=== PATIENT | female | born 1940 | race Caucasian/White ===

== ENCOUNTER 2016-12-19 17:28 | Inpatient (IN) ==
[2016-12-19] MEDS ORDERED: ASPIRIN PO STA (18:14)
[2016-12-19 18:30] LABS: MANUAL DIFF NEEDED? NO
[2016-12-19 18:35] LABS: BASO% 0.1 % (0.0-0.8); EOS# 0.09 X1000 (0.0-0.7); EOS% 0.8 % (0.0-10.0); HEMATOCRIT 31.5 % (37.0-47.0); HEMOGLOBIN 10.1 g/dL (12.0-16.0); IMM GRAN# 0.04 X1000 (0.0-0.04); IMM GRAN% 0.3 % (0.0-0.5); LYMPH# 1.22 X1000 (1.2-3.4); LYMPH% 10.3 % (20.5-51.1); MCH 31.4 PG (27-31); MCHC 32.1 g/dL (33-37); MCV 97.8 FL (81-99); MONO# 0.78 X1000 (0.11-0.59); MONO% 6.6 % (1.7-9.3); MPV 11.6 FL (7.4-10.4); NEUT% 81.9 % (42.2-75.2); PLT 213 X1000 (130-400); RBC 3.22 XMIL (4.2-5.4)
[2016-12-19 18:56] LABS: CALCIUM 9.1 mg/dL (8.8-10.2); TOTAL BILIRUBIN 0.7 mg/dL (0.20-1.00)
[2016-12-19 18:57] LABS: ALBUMIN 3.4 g/dL (3.5-5.0); TOTAL PROTEIN 7.2 g/dL (6.3-8.3)
[2016-12-19] MEDS ORDERED: NS 1,000 ML IV ONE ×2 (18:58→21:10)
--- NOTE | 2016-12-19 19:50 | EKG Report ---
Test Performed on : 12/19/2016 7:26:17 PM Test Reason : CHEST PAIN Blood Pressure : / mmHG Vent. Rate : 079 BPM Atrial Rate : 079 BPM P-R Int : 152 ms QRS Dur : 154 ms QT Int : 442 ms P-R-T Axes : 047 076 049 degrees QTc Int : 506 ms Sinus rhythm. with marked sinus arrhythmia. with frequent premature ventricular complexes. Right bundle branch block Abnormal ECG When compared with ECG of 20-NOV-2016 23:59, premature ventricular complexes. are now present Unconfirmed Result
[2016-12-19] MEDS ORDERED: DOPAMINE 800 MG/D5W (PARKWAY ONLY!) 800 MG/250 ML IV.SOLN IV SCH (20:00)
[2016-12-19] MEDS ORDERED: NS 1,000 ML ONE (20:55)
[2016-12-19] MEDS ORDERED: FLORINEF PO ONE (23:22)
[2016-12-19] MEDS ORDERED: LEVAQUIN 500 MG/D5W 500 MG/100 ML IVPB IV SCH (23:22)
[2016-12-19] MEDS ORDERED: ZOFRAN IV PRN (23:22)
[2016-12-20] MEDS: AZACTAM 1 GM in NS 50 ML IV SCH ×2 (00:32→08:02)
[2016-12-20] MEDS: LOVENOX SUBQ SCH (00:40)
[2016-12-20] MEDS: NS 1,000 ML IV SCH ×4 (00:40→18:06)
--- NOTE | 2016-12-20 00:48 | HISTORY AND PHYSICAL ---
ATTENDING PHYSICIAN: Dr. Crawford. REASON FOR ADMISSION: A 1-week history of weakness, and a 2-day history of cough, chills, and greenish sputum. HISTORY OF PRESENT ILLNESS: Ms. Orta is a 75-year-old lady with a past medical history of COPD on 4 L nasal cannula, hypertension, dyslipidemia, hypothyroidism, fibromyalgia, irritable bowel syndrome, chronic gout, anxiety disorder, and a questionable history of CHF. The patient has a history of pulmonary fibrosis. The patient comes in today complaining of a 1-week history of progressive weakness for an inexplicable reason. She states that she denies any vomiting, diarrhea. No blood loss. She says 2 days ago things got worse, to the point that she became dyspneic at rest, and started coughing up greenish sputum with occasional bloody streaks. She denies any fever, but is having chills. She reports that she has been having right pleuritic chest pain, but no palpitations or any other additional anginal symptoms. REVIEW OF SYSTEMS: Notable for chronic constipation, with occasional intermittent diarrhea, which she attributes to her irritable bowel syndrome. No tremors. No polyuria or polydipsia. No focal neurological complaints. No arthralgias or rash. She reports that about 2-3 weeks ago, her primary care physician started her on some pain medication for musculoskeletal pains. Other than that, none of her medications have been altered, or increased or decreased. Twelve system review is negative, positive findings per HPI. ALLERGIES: Ultram, sulfa drugs, penicillin, codeine, Abilify, and fluticasone propionate. HOME MEDICATIONS: 1. DuoNeb q.4 p.r.n. 2. Albuterol 100 mg daily. 3. Aspirin 81 mg daily. 4. Symbicort 2 puffs daily. 5. Fioricet 1 capsule p.r.n. 6. Calcium carbonate 1250 mg p.r.n. 7. Vitamin D 1000 units daily. 8. Furosemide 20 mg p.r.n. 9. Seroquel 400 mg at bedtime. 10. Gabapentin 600 mg 3 times a day. 11. Fish oil 500 mg daily. 12. Furosemide 20 mg p.r.n. 13. Savella 50 mg t.i.d. 14. Topamax 75 mg daily. 15. Hydrocodone 7.5 mg q.6 p.r.n. 16. Imdur 30 mg daily. 17. Potassium chloride 10 mEq daily. 18. Losartan 100 mg daily. 19. Vitamin E 400 international units daily. SURGICAL HISTORY: Patient has had a thyroidectomy for goiter. She has had a hysterectomy, appendectomy, cataract surgery, and right BKA. FAMILY HISTORY: Notable for heart disease in several first-degree relatives, and diabetes also. SOCIAL HISTORY: Stopped smoking well over 10-15 years ago. No alcohol or illicit drug use. Lives with her daughter. LABORATORY WORK: Chest film shows increased vascular markings versus chronic scarring. Right lower lobe infiltrate noted. White count 11,000, hemoglobin and hematocrit 10 and 31, platelets 213,000, with 82% neutrophils. BUN 44, creatinine 1.3. Glucose 106. Alkaline phosphatase 148. CK 142. Troponin negative. ProBNP 1500. EKG showed sinus rhythm, with frequent PACs and right bundle branch block. PHYSICAL EXAMINATION: GENERAL: Pleasant, morbidly obese woman, who is not in acute distress. She is A and O x3. Normal mood and affect. VITAL SIGNS: Blood pressure when I saw her was 120/60 while on 20 mcg of dopamine. Heart rate 91, respirations 16, temperature 97.9. She is 96% on 4 L. HEENT: Head is normocephalic, atraumatic. Eyes: MARIBEL, EOMI. She is anicteric, but pale. ENT and oropharyngeal exam is grossly normal. No central cyanosis. NECK: Short and thick. No JVD or carotid bruit. No thyromegaly. CHEST: Bibasilar crepitations, with decreased air entry in both lung wright, with diffuse expiratory wheezes. CARDIOVASCULAR: First and second heart sounds heard, but were distant. No gallops. A 2/6 ejection systolic murmur heard. Rhythm is irregular. ABDOMEN: Protuberant, soft, with mild diffuse tenderness. No rebound or guarding. No mass or organomegaly appreciated. Bowel sounds are hypoactive. RECTAL: Deferred at this time. EXTREMITIES: Patient has a right BKA stump which is clean, with no breakdown or ulcerations. On her left leg, she has a lot of scaling on the left roy area, with several chronic healing ulcerations on the roy area. Her left foot is slightly cold to touch, and has poor capillary refill. She has diminished pulses on the left, dorsalis pedis pulses and posterior tibialis pulses of her left leg, and is diminished compared to her radial pulses in the upper extremity. No current peripheral cyanosis or edema. NEUROLOGICAL: No gross focal deficits appreciated. SKIN: Intact, other than the aforementioned findings in the left lower extremity. The patient has stage I bilateral gluteal pressure ulcers. MUSCULOSKELETAL: Exam is grossly normal otherwise. ASSESSMENT: 1. Probable sepsis secondary to right lower lobe pneumonia. 2. Anemia of chronic inflammation. 3. Chronic obstructive pulmonary disease. 4. Hypotension secondary to sepsis. 5. Dyslipidemia. 6. Hypothyroidism. 7. Fibromyalgia. 8. Chronic gout. 9. Irritable bowel syndrome. 10. Pulmonary fibrosis. PLAN: At this time, we will start patient on empirical antibiotics, i.e. Levaquin and Azactam to cover for the possibility of Pseudomonas due to the history of chronic obstructive pulmonary disease and pulmonary fibrosis, i.e. a significant structural lung disease. Continue with IV fluid resuscitation. No lactate levels were drawn, and I will add on to the initial blood that was done. The patient is currently on dopamine. We will try and wean her off, since her blood pressure has normalized. To maintain this, I will give her a one time dose of Florinef. Check cortisol level, since she has been exposed to rounds of prednisone in the past. Will start the patient on DVT prophylaxis with Lovenox. I would recommend discontinuation of Symbicort because of the steroid component. Patient states she has had multiple episodes of pneumonia. I think that this, i.e. Symbicort, may be playing a part in her recurrence of pneumonia. We will hold all blood pressure medications. I ordered an echocardiogram, only because of the hypotensive situation, but to rule out a coexisting cardiac condition which may be causing this. There is no record of an echocardiogram in our system. She has a murmur, and also the patient has occasional PVCs. With all of this in mind, it will be good to get at least a baseline assessment of mainly her LV function. Anemia workup has also been ordered, and will need to be followed. A TSH was also ordered, on account of the fact the patient has had a thyroidectomy. This also needs to be followed. TIME SPENT: Critical care time on this patient was estimated to be 42 minutes. cc: Partha Costa MD
[2016-12-20] MEDS: DUONEB (A & A) INH SCH ×4 (03:59→22:55)
[2016-12-20 06:24] LABS: MANUAL DIFF NEEDED? NO
[2016-12-20 06:33] LABS: BASO% 0.1 % (0.0-0.8); EOS% 1.2 % (0.0-10.0); HEMOGLOBIN 8.7 g/dL (12.0-16.0); LYMPH# 1.16 X1000 (1.2-3.4); LYMPH% 13.4 % (20.5-51.1); MCH 30.2 PG (27-31); MCHC 31.1 g/dL (33-37); MCV 97.2 FL (81-99); MONO# 0.72 X1000 (0.11-0.59); MONO% 8.3 % (1.7-9.3); PLT 169 X1000 (130-400); RBC 2.88 XMIL (4.2-5.4)
[2016-12-20 06:42] LABS: ALBUMIN 2.7 g/dL (3.5-5.0); CALCIUM 8.6 mg/dL (8.8-10.2); POTASSIUM 3.9 mmol/L (3.5-5.1); TOTAL BILIRUBIN 0.62 mg/dL (0.20-1.00)
--- NOTE | 2016-12-20 06:51 | EKG Report ---
Test Performed on : 12/20/2016 06:15:11 AM Test Reason : chest pain Blood Pressure : / mmHG Vent. Rate : 085 BPM Atrial Rate : 085 BPM P-R Int : 146 ms QRS Dur : 156 ms QT Int : 386 ms P-R-T Axes : 063 078 038 degrees QTc Int : 459 ms Sinus rhythm. with frequent premature ventricular complexes. Right bundle branch block Abnormal ECG When compared with ECG of 19-DEC-2016 19:26, No significant change was found Confirmed by Jordy Lynn MD ([id number]) on 12/20/2016 7:16:30 AM
--- NOTE | 2016-12-20 07:53 | Diag Imaging Result Document ---
PROCEDURE NAME: CHEST-2 VIEWS - 12/19/2016 TWO VIEWS OF THE CHEST: FINDINGS: There is increasing in the coarse opacification of the right lower lobe, compared to 11/20/2016. The heart and pulmonary vascularity are stable in appearance. IMPRESSION: Right lower lobe pneumonia.
--- NOTE | 2016-12-20 08:25 | Diag Imaging Result Document ---
PROCEDURE NAME: CT THORAX W/O CONTRAST - 12/19/2016 CT THORAX WITHOUT CONTRAST: No contrast administered per request of the referring provider. A dose-reduction protocol was used. COMPARISON: 06/10/2013. FINDINGS: There are irregular infiltrates in the right upper and right lower lobes. There are mild COPD changes. There is mild scarring at the left upper lobe. There is mild scarring or infiltrate at the inferior right middle lobe. There is no substantial pleural effusion or pneumothorax identified. There are right upper lobe calcified granuloma and calcified right hilar and mediastinal lymph nodes from old granulomatous disease. There are some mildly prominent noncalcified mediastinal lymph nodes which are mildly increased. It is possible that these may be reactive. IMPRESSION: 1. Irregular infiltrates at right upper right lower lobes, suspicious for pneumonia. Followup is recommended. 2. Mild COPD changes. There is mild scarring at the left upper lobe. 3. Mild mediastinal adenopathy, which may be reactive. A [facility] physician provided preliminary results at 12:53 a.m. on 12/20/2016. [facility]ERE[facility]ie
[2016-12-20] MEDS ORDERED: DOPAMINE 400 MG/D5W 400 MG/500 ML IV.SOLN IV SCH (08:35)
[2016-12-20 08:55] LABS: ALLEN TEST YES; BE -4.2 mmoll (-3.0-3.0); BLOOD TYPE ARTERIAL; DRAW SITE R RADIAL; METHB 1.3 % (0.0-1.5); O2(CT) 12.3 mL/dL (15.0-23.0); PCO2(98.6) 42 mmHg (35-45); PO2(98.6) 79 mmHg (60-100); SAMPLE BLOOD; SAO2 96.6 % (95.0-100.0); THB 9.2 g/dL (11.5-17.4); pH(98.6) 7.32 (7.35-7.45)
[2016-12-20] MEDS: NEURONTIN PO SCH ×3 (08:55→18:06)
[2016-12-20] MEDS: TOPAMAX PO SCH ×2 (08:55→20:49)
[2016-12-20] MEDS: ASPIRIN PO SCH (08:55)
[2016-12-20] MEDS: SAVELLA PO SCH ×3 (08:55→18:06)
[2016-12-20] MEDS: ZYLOPRIM PO SCH (08:55)
[2016-12-20] MEDS: FOLTX PO SCH (08:55)
[2016-12-20] MEDS: VITAMIN D PO SCH ×2 (08:55→20:49)
[2016-12-20 08:56] LABS: MODALITY CANNULA
[2016-12-20] MEDS ORDERED: VANCOMYCIN IV PER PHARMACY MISC SCH (10:45)
--- NOTE | 2016-12-20 12:16 | CONSULTATION ---
DATE OF CONSULTATION: 12/20/2016 CONCLUSION: Patient is admitted to the hospital with a right lung pneumonia. The patient by history has recurrent episodes of pneumonia. She told me in the last year she had 3-4 bouts of pneumonia. She also has sinusitis. Because of these illnesses, I think she could have an immunoglobulin deficiency. The patient has a penicillin allergy managed by dyspnea; however she has taken Keflex in the past and tolerated it well. RECOMMENDATIONS: I have discontinued aztreonam and Levaquin, and instead put the patient on a combination of cefepime and vancomycin. I have requested that the nurse be in the room with the patient during the first dose of cefepime. Some of the side effects of the antibiotics, including rash, diarrhea, renal toxicity and ototoxicity have been explained to the patient, who agrees with treatment. In addition, I have ordered immunoglobulin levels and blood and sputum cultures. DISCUSSION: The patient tells me that approximately 5 days ago she had increasing dyspnea, malaise, hypotension, no fever, but she did have chills. She is also coughing up a yellow sputum. Her laboratory studies show a CBC with a white count of 8670, hemoglobin 8.7, platelet count 169,000. Blood gases show a pH of 7.32, PO2 of 79, pCO2 of 42. Creatinine is 1.1. GFR is 48. Liver function studies are normal. The patient had a CT scan of the chest which showed right- sided pneumonia with mediastinal adenopathy thought to be reactive in nature. The patient approximately 7 days ago started having diarrhea; today she has not had any diarrhea. PAST MEDICAL HISTORY/REVIEW OF SYSTEMS: Eyes and ears: She has no difficulty hearing or seeing. Neck: No stiffness. Respiratory: See present illness. Cardiovascular: No chest pain or palpitations. GI: See above. She is not having any nausea or vomiting. Endocrine: Patient does not have diabetes or thyroid disease. Genitourinary: No dysuria or flank pain. Neurologic: No seizures. No motor or sensory loss. Bones/joints/muscles: No joint swelling or myalgias. Integument: No rash. 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 She has had a hysterectomy for a precancerous lesion in her uterus. PREVIOUS HOSPITALIZATIONS AND OPERATIONS: She has had labor and deliveries: A miscarriage and a hysterectomy. She has had removal of a goiter, a left mastoidectomy, an appendectomy, cataract surgery and a left carfk-egg-ladc amputation. MEDICAL DISEASES: Positive for hypertension, uterine fibroids and an illness which ended up requiring the patient having an amputation. INFECTIOUS DISEASE HISTORY: Positive for recurrent pneumonia and sinusitis. FAMILY HISTORY: Positive for diabetes mellitus, hypertension, myocardial infarction and cancer. SOCIAL HISTORY[place] . She lives with her daughter. She does not drink, smoke or abuse drugs. She has an allergy to penicillin manifested by dyspnea, but as mentioned above she tolerates Keflex well. The patient has dogs as pets. ALLERGIES: Abilify, tramadol, codeine, Advair Diskus, PARVIN inhibitors and penicillins. MEDICATION: Home medications include the followin. Vitamins. 2. Topamax. 3. Seroquel. 4. Potassium. 5. Savella. 6. Cozaar. 7. Levaquin. 8. Isordil. 9. Combivent. 10. Hydrocodone. 11. Gabapentin. 12. Furosemide. 13. Calcium. 14. Fiorinal. 15. Symbicort. 16. Aspirin. 17. Albuterol inhaler. PHYSICAL EXAMINATION: Vital Signs: Temperature is 98.2 degrees, pulse 84, respirations 20, blood pressure 99/85. General: This is an obese, elderly female. She is in no acute distress. Head, eyes, ears, nose, and throat: She can hear my spoken words and see near objects. Examination of her mouth showed no white patches. There were no caries that I could see. Neck: No meningismus. Thorax: No increased AP diameter of the chest. Lungs: Clear to auscultation. Cardiovascular: The patient did at times appear to have some premature beats which, on the monitor, were PVCs. Abdomen: Soft and nontender. Neurologic: Patient is alert. She can move her extremities. There is no tremor. Her sensation is intact to touch. Her memory as regarding her medical history is intact. Integument: I did not notice any rashes on the patient. cc: MD Rebecca Velasquez MD
[2016-12-20] MEDS: MAXIPIME 2 GM/NS 2 GM/100 ML IVPB IV SCH (13:05)
[2016-12-20] MEDS: VANCOMYCIN 2 GM in NS 500 ML IV SCH (13:13)
[2016-12-20] MEDS: SODIUM CHLORIDE 0.9% INJ SCH (13:14)
[2016-12-20] MEDS: PROTONIX IV SCH (13:14)
--- NOTE | 2016-12-20 14:10 | CONSULTATION ---
DATE OF CONSULTATION: 12/20/2016 REQUESTING PHYSICIAN: Dr. Crawford. REASON FOR CONSULTATION: Pneumonia. HISTORY OF PRESENT ILLNESS: Ms Orta is a 75-year-old white female with prior tobacco history, COPD, morbid obesity with a BMI of 49, gastroesophageal reflux disease who has been seen by this practitioner in the remote past. The patient did undergo a bronchoscopy which revealed bilious material in the airways consistent with reflux and aspiration. She failed to follow up after her last visit in 2012. The patient frequently will eat late at night. She routinely sleeps upright but recently traveled out of [facility] and slept on the couch and not in the recliner. The patient had developed increased cough, chills and greenish sputum production and was admitted through the emergency room last evening. PAST MEDICAL HISTORY: 1. COPD with chronic hypoxemic respiratory failure. 2. Morbid obesity with a BMI of 49. 3. Status post right clceq-eer-[id number] amputation due to chronic nonhealing ankle fracture. 4. Hypertension. 5. Hypothyroidism. 6. Dyslipidemia. 7. Fibromyalgia. 8. Irritable bowel syndrome. 9. Chronic anxiety disorder. 10. Gastroesophageal reflux with recurrent aspiration as per above. SOCIAL HISTORY: Prior tobacco use but none for several years. Denies significant alcohol use. FAMILY HISTORY: Notable for heart disease and diabetes mellitus. REVIEW OF SYSTEMS: As per HPI. PHYSICAL EXAMINATION: General: Reveals an obese, white female, with audible rhonchi but in no distress. Vital Signs: BP 99/81, heart rate 87, respiration rate 21, oxygen saturation 98% on 3 L. HEENT: Pupils are equal and reactive. Oropharynx is clear. Neck: Supple. Chest: Reveals rhonchi bilaterally with scattered crackles at the right base. Cardiac Exam: Regular rate. Normal S1, normal S2. Abdomen: Soft without hepatosplenomegaly. Extremities: Reveal prior [id number]-byd-[id number] amputation on the right. LABORATORIES: CT scan 12/19/[address] scan performed 1 month earlier on 11/20/2016. Patient has new infiltrates in the right upper, right middle and right lower lobe which were not present 1 month ago. IMPRESSION: A 75-year-old with chronic obstructive pulmonary disease, chronic hypoxemic respiratory failure, gastroesophageal reflux with noncompliance to recommended reflux precautions who presents with multilobar aspiration pneumonia. RECOMMENDATIONS: 1. Agree with antibiotics per infectious disease. 2. Routine bronchodilators. 3. Physical therapy as soon as possible for ambulation and mobilization. 4. Routine gastric acid suppression. 5. Encourage patient to follow reflux precautions to prevent recurrent aspiration events. cc: MD Rebecca Arriola MD
[2016-12-20] MEDS: NORCO-5 PO PRN (14:13)
--- NOTE | 2016-12-20 14:53 | ECHO REPORT ---
ORDER DATE: 12/19/2016 ECHOCARDIOGRAPHIC MEASUREMENTS: 1. Interventricular septum 1.0. 2. Left ventricular posterior wall 0.8. 3. Diastolic diameter 4.9. 4. Left atrium 5.0. 5. Aorta 2.6. Aortic valve leaflets are sclerosed, trileaflet. Pulmonic valve not well visualized. Mitral valve was normal. Tricuspid valve was normal. Normal left ventricular cavity size. Estimated ejection fraction of 55%-60%. Endocardium not well visualized in all views. There is mild mitral regurgitation. There is left atrial enlargement. Peak velocity across the aortic valve was 4 m/sec. Aortic valve area of 0.8 sq cm. Peak gradient of 64 mmHg. There is severe aortic stenosis. Peak velocity across the tricuspid valve was 3 m/sec. Pulmonary artery systolic pressure of 45 mm Hg. There is PVCs and bigeminy were noted. There is no aortic regurgitation. There is no pericardial effusion. Would recommend a transesophageal echocardiogram to better evaluate the aortic valve. cc: MD Partha Williamson MD Adnan A. Seljuki, MD
[2016-12-20] MEDS: TYLENOL PO PRN (15:09)
[2016-12-20] MEDS: SEROQUEL PO SCH (20:48)
[2016-12-21] MEDS: MAXIPIME 2 GM/NS 2 GM/100 ML IVPB IV SCH ×3 (00:19→22:44)
[2016-12-21] MEDS: DUONEB (A & A) INH SCH ×4 (03:14→21:25)
[2016-12-21] MEDS: NS 1,000 ML IV SCH ×2 (03:57→12:04)
[2016-12-21 07:54] LABS: MANUAL DIFF NEEDED? NO
[2016-12-21] MEDS: LOVENOX SUBQ SCH (08:06)
[2016-12-21 08:51] LABS: AGAP 10; BUN 28 mg/dL (8-22); CALCIUM 8.4 mg/dL (8.8-10.2); CHLORIDE 111 mmol/L (98-107); COSMO 286; POTASSIUM 4.3 mmol/L (3.5-5.1); SODIUM 141 mmol/L (136-145); TCO2 20 mmol/L (25-35)
[2016-12-21] MEDS: FOLTX PO SCH (09:14)
[2016-12-21] MEDS: CALMOSEPTINE OINTMENT TOP PRN ×2 (09:14→14:14)
[2016-12-21 09:15] LABS: BASO% 0.2 % (0.0-0.8); EOS# 0.21 X1000 (0.0-0.7); EOS% 2.2 % (0.0-10.0); HEMATOCRIT 28.3 % (37.0-47.0); HEMOGLOBIN 8.9 g/dL (12.0-16.0); IMM GRAN# 0.04 X1000 (0.0-0.04); IMM GRAN% 0.4 % (0.0-0.5); LYMPH% 13.5 % (20.5-51.1); MCH 30.6 PG (27-31); MCHC 31.4 g/dL (33-37); MCV 97.3 FL (81-99); MONO# 0.61 X1000 (0.11-0.59); MONO% 6.4 % (1.7-9.3); MPV 11.9 FL (7.4-10.4); NEUT% 77.3 % (42.2-75.2); PLT 189 X1000 (130-400); RBC 2.91 XMIL (4.2-5.4)
[2016-12-21] MEDS: ZYLOPRIM PO SCH (09:15)
[2016-12-21] MEDS: ASPIRIN PO SCH (09:15)
[2016-12-21] MEDS: SAVELLA PO SCH ×3 (09:15→17:50)
[2016-12-21] MEDS: TOPAMAX PO SCH ×2 (09:15→20:10)
[2016-12-21] MEDS: NEURONTIN PO SCH ×3 (09:16→17:50)
[2016-12-21] MEDS: VITAMIN D PO SCH ×2 (09:16→20:10)
[2016-12-21] MEDS: NORCO-5 PO PRN ×2 (12:07→18:08)
[2016-12-21] MEDS: SODIUM CHLORIDE 0.9% INJ SCH (13:08)
[2016-12-21] MEDS: PROTONIX IV SCH (13:10)
[2016-12-21] MEDS: SEROQUEL PO SCH (20:10)
[2016-12-22] MEDS: VANCOMYCIN 2 GM in NS 500 ML IV SCH (00:13)
[2016-12-22] MEDS: NORCO-5 PO PRN ×3 (00:13→10:55)
[2016-12-22] MEDS: DUONEB (A & A) INH SCH ×4 (03:25→19:53)
[2016-12-22] MEDS: LOVENOX SUBQ SCH (06:02)
[2016-12-22] MEDS: NS 1,000 ML IV SCH (06:04)
--- NOTE | 2016-12-22 08:03 | Diag Imaging Result Document ---
PROCEDURE NAME: CHEST-2 VIEWS - 12/22/2016 CHEST 2 VIEWS: Compared to 12/19/2016. FINDINGS: Infiltrate at the right mid lung appears more dense compared to the previous exam. There is possibly increased infiltrate at the posterior right base on the lateral view, although this could be exaggerated by differences in positioning of the lateral views. The left lung remains grossly clear. There is no pneumothorax seen. Heart size appears stable. IMPRESSION: Mild increase in infiltrate on the right.
[2016-12-22] MEDS: TOPAMAX PO SCH ×2 (10:55→22:27)
[2016-12-22] MEDS: VITAMIN D PO SCH ×2 (10:55→22:26)
[2016-12-22] MEDS: NEURONTIN PO SCH ×3 (10:55→22:27)
[2016-12-22] MEDS: FOLTX PO SCH (10:55)
[2016-12-22] MEDS: ZYLOPRIM PO SCH (10:55)
[2016-12-22] MEDS: SAVELLA PO SCH ×3 (10:55→22:27)
[2016-12-22] MEDS: ASPIRIN PO SCH (10:55)
[2016-12-22] MEDS: MAXIPIME 2 GM/NS 2 GM/100 ML IVPB IV SCH ×2 (10:56→22:29)
[2016-12-22] MEDS: PROTONIX IV SCH (13:55)
[2016-12-22] MEDS: SODIUM CHLORIDE 0.9% INJ SCH (13:55)
[2016-12-22] MEDS: CALMOSEPTINE OINTMENT TOP PRN (17:42)
[2016-12-22] MEDS: SEROQUEL PO SCH (22:27)
[2016-12-23] MEDS: DUONEB (A & A) INH SCH ×4 (03:25→22:46)
[2016-12-23 04:47] LABS: ALLEN TEST YES; BE -1.1 mmoll (-3.0-3.0); BLOOD TYPE ARTERIAL; DRAW SITE R RADIAL; METHB 1.6 % (0.0-1.5); O2(CT) 12.4 mL/dL (15.0-23.0); PCO2(98.6) 46 mmHg (35-45); PO2(98.6) 118 mmHg (60-100); SAMPLE BLOOD; SAO2 98.4 % (95.0-100.0); pH(98.6) 7.34 (7.35-7.45)
[2016-12-23 04:48] LABS: MODALITY CANNULA
[2016-12-23 05:50] LABS: MANUAL DIFF NEEDED? NO
[2016-12-23] MEDS: LOVENOX SUBQ SCH (05:54)
[2016-12-23 05:58] LABS: BASO% 0.4 % (0.0-0.8); EOS# 0.34 X1000 (0.0-0.7); EOS% 4.3 % (0.0-10.0); IMM GRAN# 0.15 X1000 (0.0-0.04); IMM GRAN% 1.9 % (0.0-0.5); LYMPH# 1.44 X1000 (1.2-3.4); LYMPH% 18.2 % (20.5-51.1); MCH 31.4 PG (27-31); MCHC 32.1 g/dL (33-37); MCV 97.6 FL (81-99); MONO# 0.66 X1000 (0.11-0.59); MONO% 8.3 % (1.7-9.3); MPV 11.3 FL (7.4-10.4); NEUT% 66.9 % (42.2-75.2); PLT 196 X1000 (130-400); RBC 2.87 XMIL (4.2-5.4)
[2016-12-23 06:09] LABS: AGAP 11; BUN 19 mg/dL (8-22); CALCIUM 8.9 mg/dL (8.8-10.2); CHLORIDE 107 mmol/L (98-107); COSMO 285; MAGNESIUM 1.8 mg/dL (1.5-2.7); POTASSIUM 4.2 mmol/L (3.5-5.1); SODIUM 142 mmol/L (136-145); TCO2 24 mmol/L (25-35)
[2016-12-23] MEDS: ZYLOPRIM PO SCH (09:06)
[2016-12-23] MEDS: TOPAMAX PO SCH ×2 (09:06→21:28)
[2016-12-23] MEDS: NEURONTIN PO SCH ×3 (09:06→17:51)
[2016-12-23] MEDS: SAVELLA PO SCH ×3 (09:07→17:51)
[2016-12-23] MEDS: VITAMIN D PO SCH ×2 (09:07→21:28)
[2016-12-23] MEDS: ASPIRIN PO SCH (09:07)
[2016-12-23] MEDS: FOLTX PO SCH (09:07)
[2016-12-23] MEDS: NORCO-5 PO PRN ×2 (10:19→19:01)
[2016-12-23] MEDS: MAXIPIME 2 GM/NS 2 GM/100 ML IVPB IV SCH ×2 (11:07→22:28)
[2016-12-23] MEDS: PROTONIX IV SCH (13:37)
[2016-12-23] MEDS: TYLENOL PO PRN ×2 (13:37→21:33)
[2016-12-23] MEDS: SODIUM CHLORIDE 0.9% INJ SCH (13:37)
[2016-12-23] MEDS: VANCOMYCIN 2 GM in NS 500 ML IV SCH (15:00)
--- NOTE | 2016-12-23 15:29 | PROGRESS NOTE ---
DATE: 12/23/2016 PRESENT ILLNESS: The patient is being treated for a right lung pneumonia. MEDICATIONS: This is the third day of treatment with the combination of IV cefepime and IV vancomycin. PHYSICAL EXAMINATION: Vital Signs: Temperature is 97.6 degrees, pulse 93, respirations 20, blood pressure 150/70. Generally: This is an obese, elderly female. She is in no acute distress. Lungs: Clear to auscultation. Cardiovascular: Regular heart rate. Abdomen: Soft and nontender. Extremities: Patient has bilateral leg edema. LAB AND X-RAY: The chest x-ray shows a mild increase in the right lung infiltrate. The patient's CBC shows a white count of 7920, hemoglobin 9, and platelet count 196,000. Blood gases show a pH of 7.34, a pO2 of 118, pCO2 of 46. Sputum is growing a normal winter. Blood cultures are sterile. Immunoglobulin levels A and G are normal. Chest x-ray shows a mild increase in the right lung infiltrate. ASSESSMENT AND PLAN: The patient has a right lung pneumonia. I think the slight increase in the infiltrate is due the fact that the chest x-ray lags behind the clinical course of the patient. Overall, I think she is doing well and she feels the same way. Therefore, I plan to continue with the current antibiotics, namely vancomycin and cefepime. COMORBIDITIES: Patient's comorbidities includes the following: She is obese, but other than that I do not find any other comorbidity. cc: MD Rebecca Velasquez MD
[2016-12-23] MEDS: SEROQUEL PO SCH (21:28)
[2016-12-24] MEDS: DUONEB (A & A) INH SCH ×4 (03:49→22:53)
[2016-12-24] MEDS: LOVENOX SUBQ SCH (05:23)
--- NOTE | 2016-12-24 08:34 | Diag Imaging Result Doc PS360 ---
CHEST-PORTABLE - 12/24/2016 INDICATION: Abnormal exam COMPARISON: 12/22/2016 FINDINGS: There is perhaps slight worsening in the multilobar infiltrate throughout the right lung. Stable significant cardiomegaly. Stable pulmonary vascular congestion. The left lung is grossly clear of infiltrate. IMPRESSION: Slight worsening multilobar infiltrate/pneumonia throughout the right lung. Cardiomegaly. Electronically signed by Tylor Hou 12/24/2016 8:31 AM
--- NOTE | 2016-12-24 09:11 | PROGRESS NOTE ---
DATE: 12/24/2016 DISCUSSION: The patient is receiving antibiotic treatment for a right lung pneumonia. MEDICATIONS: This is day 4 of treatment with the combination of IV cefepime and vancomycin. PHYSICAL EXAMINATION: Vital Signs: Temperature is 98.5 degrees, pulse 69, respirations 16, blood pressure 155/79. General: This is an ill-appearing, elderly female. She is in no acute distress. Lungs: Clear to auscultation. Cardiovascular: Regular heart rate. Abdomen: Soft and nontender. Neurologic: Patient is awake. She can move her extremities. LAB AND X-RAY: The chest x-ray shows a slight increase in the right lung infiltrates. Sputum grew normal florae. Blood cultures are negative. IgG and IgA are normal. Creatinine 0.9. GFR is greater than 60. Blood gases show a pH of 7.34, a PO2 of 118, pCO2 of 46. CBC shows a white count of 7920, hemoglobin 9, platelet count 196,000. ASSESSMENT AND PLAN: For right now, I would like to continue with the current antibiotics. The fact that the right lung is slightly worse, I do not think is worrisome. I think it just represents the radiologic lag from how the patient is actually doing clinically. My plan is to continue with both vancomycin and cefepime. The patient's comorbidities include obesity. I could not find any other comorbidity at this time. cc: MD Rebecca Velasquez MD
[2016-12-24] MEDS: ASPIRIN PO SCH (10:03)
[2016-12-24] MEDS: ZYLOPRIM PO SCH (10:03)
[2016-12-24] MEDS: NEURONTIN PO SCH ×3 (10:03→17:04)
[2016-12-24] MEDS: SAVELLA PO SCH ×3 (10:03→17:04)
[2016-12-24] MEDS: FOLTX PO SCH (10:03)
[2016-12-24] MEDS: TOPAMAX PO SCH ×2 (10:04→22:06)
[2016-12-24] MEDS: VITAMIN D PO SCH ×2 (10:04→22:07)
[2016-12-24] MEDS: MAXIPIME 2 GM/NS 2 GM/100 ML IVPB IV SCH ×2 (11:52→22:07)
[2016-12-24] MEDS: SODIUM CHLORIDE 0.9% INJ SCH (13:10)
[2016-12-24] MEDS: PROTONIX IV SCH (13:10)
[2016-12-24] MEDS: NORCO-5 PO PRN ×2 (13:13→22:06)
[2016-12-24] MEDS: TESSALON PO SCH (16:15)
--- NOTE | 2016-12-24 17:17 | PROGRESS NOTE ---
DATE: 12/24/2016 SUBJECTIVE: Today Ms. Orta refers to be doing a little better. Continues to have cough with yellowish dark expectoration. OBJECTIVE: Vital signs: Blood pressure is 155/76, pulse 69, respiration is 16 , temperature is 98.5 degrees. General: Ms. Orta is a 75-year-old female. She is in bed, in no distress. HEENT: Mucosa is pink and moist. Anicteric. Acyanotic. Neck: Supple. Chest: Air entry is bilaterally reduced. It is more remarkable on the right posterior lung field. There are diffuse crackles and expiratory rhonchi, more on the right posterior lung field. Cardiovascular: Regular rate and rhythm. Abdomen: Distended, nontender. Bowel sounds are present. 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 Left lower estremity with stasis dermatitis, right with BKA. ASSESSMENT/PLAN: 1. Sepsis secondary to pneumonia. 2. Right lower lobe pneumonia. 3. History of COPD. 4. Chronic gout. 5. Irritable bowel syndrome noted. So in general I think Ms. Orta continues to be doing fine. She is currently on vancomycin and cefepime for antibiotics. She is getting nebulizations and pulmonary toilette. She is being followed by Pulmonary Medicine and also Infectious Disease. We are going to continue with the current plan for now. cc: MD Rebecca Fitzgerald MD MTDD
[2016-12-24] MEDS: TYLENOL PO PRN (18:55)
[2016-12-24] MEDS: SEROQUEL PO SCH (22:06)
[2016-12-25] MEDS: VANCOMYCIN 2 GM in NS 500 ML IV SCH (01:45)
[2016-12-25] MEDS: DUONEB (A & A) INH SCH ×4 (03:21→20:12)
[2016-12-25 05:32] LABS: MANUAL DIFF NEEDED? NO
[2016-12-25 05:47] LABS: AGAP 8; BUN 20 mg/dL (8-22); CALCIUM 8.7 mg/dL (8.8-10.2); CHLORIDE 106 mmol/L (98-107); COSMO 285; SODIUM 142 mmol/L (136-145); TCO2 28 mmol/L (25-35)
[2016-12-25 05:50] LABS: BASO% 0.6 % (0.0-0.8); EOS% 5.8 % (0.0-10.0); HEMATOCRIT 27.9 % (37.0-47.0); HEMOGLOBIN 8.7 g/dL (12.0-16.0); IMM GRAN# 0.28 X1000 (0.0-0.04); IMM GRAN% 4.1 % (0.0-0.5); LYMPH# 1.66 X1000 (1.2-3.4); LYMPH% 24.2 % (20.5-51.1); MCH 30.1 PG (27-31); MCHC 31.2 g/dL (33-37); MCV 96.5 FL (81-99); MONO# 0.54 X1000 (0.11-0.59); MONO% 7.9 % (1.7-9.3); MPV 10.7 FL (7.4-10.4); NEUT% 57.4 % (42.2-75.2); PLT 247 X1000 (130-400); RBC 2.89 XMIL (4.2-5.4)
[2016-12-25] MEDS: LOVENOX SUBQ SCH (05:58)
--- NOTE | 2016-12-25 08:22 | PROGRESS NOTE ---
DATE: 12/25/2016 PRESENT ILLNESS: The patient is being treated for a right lung pneumonia. MEDICATIONS: This is day 5 of treatment with IV cefepime and vancomycin. PHYSICAL EXAMINATION: Vital Signs: Temperature is 97.7 degrees, pulse 77, respirations 18, blood pressure 136/71. Generally: This is a somewhat ill-appearing, elderly female. She is in no acute distress. She is obese. Lungs: Clear to auscultation. Cardiovascular: Regular heart rate. Abdomen: Soft and nontender. LAB AND X-RAY STUDIES: There is no new x-ray. The patient's sputum grew normal winter. Blood cultures are negative. Creatinine 0.9. GFR is greater than 60. CBC shows a white count of 6870, hemoglobin 8.7, and platelet count 247,000. ASSESSMENT AND PLAN: Patient has pneumonia. I plan to continue her current antibiotics, namely the vancomycin and cefepime. COMORBIDITIES: The only one I can find is obesity. cc: MD Rebecca Velasquez MD MTDD
[2016-12-25] MEDS: ASPIRIN PO SCH (08:39)
[2016-12-25] MEDS: FOLTX PO SCH (08:40)
[2016-12-25] MEDS: TOPAMAX PO SCH ×2 (08:40→21:20)
[2016-12-25] MEDS: VITAMIN D PO SCH ×2 (08:40→21:20)
[2016-12-25] MEDS: ZYLOPRIM PO SCH (08:40)
[2016-12-25] MEDS: SAVELLA PO SCH ×3 (08:40→17:01)
[2016-12-25] MEDS: NEURONTIN PO SCH ×3 (08:40→17:02)
[2016-12-25] MEDS: TESSALON PO SCH ×3 (08:40→17:02)
[2016-12-25] MEDS: MAXIPIME 2 GM/NS 2 GM/100 ML IVPB IV SCH ×2 (11:04→21:20)
[2016-12-25] MEDS: SODIUM CHLORIDE 0.9% INJ SCH (13:45)
[2016-12-25] MEDS: PROTONIX IV SCH (13:45)
[2016-12-25] MEDS ORDERED: MUCOMYST 20% INH ONE (15:45)
--- NOTE | 2016-12-25 16:08 | PROGRESS NOTE ---
DATE: 12/25/2016 SUBJECTIVE: Today, Ms. Orta refers to be doing relatively fine. Continues to have this hacking cough. Not bringing up anything. OBJECTIVE: Vital signs: Blood pressure is 154/65, pulse of 89, respirations 18 , temperature 98.1. General: Ms. Orta is a 76-year-old, female. She is in bed, not seemingly distressed. HEENT: Mucosa is pink and moist. Anicteric. Acyanotic. Neck: Supple. Chest: Good air entry bilateral. However, slightly reduced to the right posterior lung field. There is some coarse crepitations in the posterior right lung field and also rhonchi. Cardiovascular: Regular rate and rhythm. Abdomen: Soft, nontender. Extremities: No pedal edema. 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 LONG TERM CARE PHLEBOTOMIST: Patient is alert and oriented x4. LABORATORY DATA: WBC is 6.87, hemoglobin is 8.7, platelet count is 247. Chemistry is reviewed, completely normal. ASSESSMENT: 1. Sepsis on presentation, secondary to pneumonia. 2. Right lower lobe pneumonia. 3. History of chronic obstructive pulmonary disease. 4. Chronic gout. 5. Irritable bowel syndrome. PLAN: In general, I think Ms. Orta is relatively stable. We are going to continue with the current antibiotics including cefepime and vancomycin. The patient is being followed up as well by Pulmonary Medicine and Infectious Disease. I will get her a one time dose of acetylcysteine nebulization to see if we can loosen up some of the chest congestion. I think Ms. Orta is going to be needing antibiotics for awhile to adequately treat the lung infection. We will therefore go ahead and put in a consult for PICC line and hopefully be getting her ready for discharge with IV antibiotics. cc: MD Rebecca Fitzgerald MD [facility]
[2016-12-25] MEDS: NORCO-5 PO PRN (21:20)
[2016-12-25] MEDS: SEROQUEL PO SCH (21:20)
[2016-12-25] MEDS: FIORICET PO PRN (21:58)
[2016-12-26] MEDS: DUONEB (A & A) INH SCH ×4 (03:19→21:56)
[2016-12-26] MEDS: MAXIPIME 2 GM/NS 2 GM/100 ML IVPB IV SCH ×3 (05:04→21:16)
[2016-12-26 05:29] LABS: INR 1.07; PROTIME 11.3 Seconds (9.2-11.7)
[2016-12-26] MEDS: LOVENOX SUBQ SCH (06:41)
--- NOTE | 2016-12-26 08:23 | Diag Imaging Result Doc PS360 ---
EXAM: CHEST-2 VIEWS HISTORY: abnormal exam COMPARISON: 12/24/2016 FINDINGS: There is mild cardiomegaly. There is been interval decrease in vascular congestion. There is infiltrate on the right which appears grossly stable. There is no substantial pleural effusion or pneumothorax identified. IMPRESSION: Decrease in vascular congestion. Stable infiltrate on the right. Pneumonia cannot be excluded. Electronically signed by Eliud Farmer 12/26/2016 8:20 AM
[2016-12-26] MEDS: SAVELLA PO SCH ×3 (08:45→16:24)
[2016-12-26] MEDS: FOLTX PO SCH (08:45)
[2016-12-26] MEDS: ASPIRIN PO SCH (08:45)
[2016-12-26] MEDS: TOPAMAX PO SCH ×2 (08:45→21:16)
[2016-12-26] MEDS: NEURONTIN PO SCH ×3 (08:45→16:24)
[2016-12-26] MEDS: ZYLOPRIM PO SCH (08:46)
[2016-12-26] MEDS: TESSALON PO SCH ×3 (08:46→16:24)
[2016-12-26] MEDS: VITAMIN D PO SCH ×2 (08:46→21:16)
[2016-12-26] MEDS ORDERED: NS 250 ML ONE (11:00)
[2016-12-26] MEDS: PROTONIX IV SCH (12:38)
[2016-12-26] MEDS: SODIUM CHLORIDE 0.9% INJ SCH (12:38)
--- NOTE | 2016-12-26 13:54 | PROGRESS NOTE ---
DATE: 12/26/2016 PRESENT ILLNESS: The patient has a right lung pneumonia. MEDICATIONS: The patient is being treated with vancomycin and cefepime. This is the 6th day of treatment with those antibiotics. PHYSICAL EXAMINATION: Vital Signs: Temperature is 97.8 degrees, pulse 91, respirations 12, blood pressure 137/80. General: This is an obese, elderly female. She is in no acute distress. Lungs: Clear to auscultation. Cardiovascular: Regular heart rate. Abdomen: Soft and nontender. Extremities/Integumentary: Patient has a has a PICC in the right arm. The site is not erythematous or swollen. LABORATORY AND X-RAYS: Creatinine 0.9. GFR is greater than 60. The patient's CBC shows a white count of 6870, hemoglobin 8.7, and platelet count 247,000. Chest x-ray shows stable right lung infiltrate with decreased vascular congestion. ASSESSMENT AND PLAN: I plan to continue the patient's antibiotics for her pneumonia. COMORBIDITY: The only comorbidity I can detect is obesity. cc: MD Rebecca Velasquez MD
[2016-12-26] MEDS: VANCOMYCIN 2 GM in NS 500 ML IV SCH (14:18)
[2016-12-26] MEDS: TYLENOL PO PRN (15:32)
--- NOTE | 2016-12-26 17:01 | PROGRESS NOTE ---
DATE: 12/26/2016 SUBJECTIVE: Today, Ms. Orta is referred to be doing a little better. Continues to have cough, but no fever. OBJECTIVE: Vital signs: Blood pressure is 149/88, pulse of 90, respirations 16, temperature is 97.8. General Exam: Ms. Orta is an 86-year-old, female. She is in bed, not seemingly distress. HEENT: Mucosa is pink and moist. Anicteric. Acyanotic. Neck: Supple. Chest: Air entry is bilaterally reduced. There is bilateral diffuse coarse crepitations in the posterior lung wright more on the right than the left. Cardiovascular: Regular rate and rhythm. Abdomen: Soft. Extremities: There is stasis dermatitis on the left and the right has a BKA. FORENSIC ECONOMIST: Patient is alert and oriented. LABORATORY DATA: None for today. A chest x-ray which was repeated this morning shows decrease in vascular congestion. Stable infiltrates in the right. Pneumonia cannot be excluded. ASSESSMENT: 1. Sepsis on presentation secondary to pneumonia. 2. Right lower lobe pneumonia. 3. History of chronic obstructive pulmonary disease. 4. Chronic gout. 5. Irritable bowel. PLAN: So, I think at this point, Ms. Orta is doing a whole lot better. She is also being followed up by Pulmonary medicine and Dr. Galarza who plans to continue with the current antibiotics including vancomycin and cefepime. Ms. Orta now has a PICC line. We will now be planning her possible discharge home on home health and arrange for her home antibiotics. We are going to discuss this with Dr. Galarza and start planning for her discharge. cc: MD Rebecca Fitzgerald MD
[2016-12-26] MEDS ORDERED: LASIX IV ONE (18:06)
[2016-12-26] MEDS: NORCO-5 PO PRN (21:15)
[2016-12-26] MEDS: SEROQUEL PO SCH (21:16)
[2016-12-26 23:35] LABS: CALCIUM 8.9 mg/dL (8.8-10.2); MAGNESIUM 1.9 mg/dL (1.5-2.7); POTASSIUM 3.7 mmol/L (3.5-5.1)
[2016-12-27] MEDS: DUONEB (A & A) INH SCH ×4 (03:11→22:40)
--- NOTE | 2016-12-27 05:14 | EKG Report ---
Test Performed on : 12/26/2016 10:40:08 PM Test Reason : Multiple PVC's, Chest Pain Blood Pressure : / mmHG Vent. Rate : 088 BPM Atrial Rate : 088 BPM P-R Int : 128 ms QRS Dur : 142 ms QT Int : 424 ms P-R-T Axes : 050 069 051 degrees QTc Int : 513 ms Sinus rhythm. with frequent premature ventricular complexes. Right bundle branch block Abnormal ECG When compared with ECG of 20-DEC-2016 06:15, QT has lengthened Confirmed by Jordy Lynn MD ([id number]) on 12/27/2016 3:30:00 PM
[2016-12-27 05:21] LABS: HEMOGLOBIN 8.9 g/dL (12.0-16.0); MCH 30.4 PG (27-31); MCHC 30.7 g/dL (33-37); RBC 2.93 XMIL (4.2-5.4)
[2016-12-27 05:23] LABS: ALBUMIN 2.7 g/dL (3.5-5.0); CALCIUM 8.6 mg/dL (8.8-10.2); MAGNESIUM 2.1 mg/dL (1.5-2.7); POTASSIUM 3.8 mmol/L (3.5-5.1); TOTAL BILIRUBIN 0.17 mg/dL (0.20-1.00); TOTAL PROTEIN 6.2 g/dL (6.3-8.3)
[2016-12-27] MEDS ORDERED: LASIX IV ONE (06:00)
[2016-12-27] MEDS: MAXIPIME 2 GM/NS 2 GM/100 ML IVPB IV SCH ×3 (06:00→22:13)
[2016-12-27] MEDS: LOVENOX SUBQ SCH (06:51)
--- NOTE | 2016-12-27 07:22 | Diag Imaging Result Doc PS360 ---
CHEST-PORTABLE - 12/27/2016 INDICATION: abnormal exam TECHNIQUE: COMPARISON: 12/26/2016 FINDINGS: There is a new right PICC line with the catheter tip in the mid SVC. There is slight improvement in the multifocal infiltrates in the right lung. Stable mild cardiomegaly. No new infiltrates. IMPRESSION: Slight improvement from prior. Electronically signed by Tylor Hou 12/27/2016 7:20 AM
[2016-12-27] MEDS: NORCO-5 PO PRN ×2 (10:34→18:57)
[2016-12-27] MEDS: TESSALON PO SCH ×3 (10:35→18:55)
[2016-12-27] MEDS: VITAMIN D PO SCH ×2 (10:35→22:13)
[2016-12-27] MEDS: SAVELLA PO SCH ×3 (10:35→18:54)
[2016-12-27] MEDS: TOPAMAX PO SCH ×2 (10:35→22:13)
[2016-12-27] MEDS: ASPIRIN PO SCH (10:35)
[2016-12-27] MEDS: ZYLOPRIM PO SCH (10:35)
[2016-12-27] MEDS: FOLTX PO SCH (10:35)
[2016-12-27] MEDS: NEURONTIN PO SCH ×3 (10:36→18:55)
[2016-12-27] MEDS: CALMOSEPTINE OINTMENT TOP PRN ×2 (10:58→13:53)
--- NOTE | 2016-12-27 11:14 | PROGRESS NOTE ---
DATE: 12/27/2016 PRESENT ILLNESS: The patient has a right lung pneumonia. MEDICATIONS: This is the 7th day of treatment with a combination of vancomycin and cefepime. PHYSICAL EXAMINATION: Vital Signs: Temperature is 98.2 degrees, pulse 82, respirations 18, blood pressure 121/67. General: This is an obese elderly female. She is in no acute distress. Lungs: Clear to auscultation. Cardiovascular: Heart rate is irregular. Abdomen: Soft and nontender. Extremities: The patient has a PICC in the right arm. The site is not erythematous or tender. LAB AND X-RAYS: Chest x-ray shows improvement in the right lower lobe infiltrate. CBC shows a white count of 8350, hemoglobin 8.9, and platelet count 268,000. Creatinine is 1. GFR is 54. ASSESSMENT AND PLAN: Patient has pneumonia. I plan to continue her current antibiotics. This is day 7 of treatment with the antibiotics. I suspect I will need to treat her for a total of 14 days. COMORBIDITY: Is obesity. cc: MD Rebecca Velasquez MD
--- NOTE | 2016-12-27 13:21 | PROGRESS NOTE ---
DATE: 12/27/2016 Ms. Orta states she is breathing a little more comfortably. She felt a little better. She says she is still coughing a little bit more, a little looser. OBJECTIVE: Vital Signs: Afebrile. Temp 97.9 degrees. Pulse 52, respirations 20, blood pressure 149/69. HEENT: Pupils are equal, round. Lungs: Lungs are clear in all lung wright. Cardiovascular: Regular rhythm and rate without murmur or S3. Abdomen: Soft. Skin: Warm and dry. URINE OUTPUT: 3800 mL. LAB: White count 8350, hematocrit was 29, platelet count 268,000, sodium 141, potassium 3.8, chloride 99, bicarb 30, BUN 26, creatinine 1.0. ASSESSMENT AND PLAN: Right lung pneumonia. Combination of vancomycin and cefepime. Getting better, clinically doing better. This is the 7th day of antibiotic untreated total 14 days. Chest x-ray from 12/27/2016 slight improvement from prior. I reviewed all the orders. I do not see any changes at this point. The patient is on vancomycin 2 g q.36 hours, Topamax 25 mg p.o. b.i.d., Seroquel 200 mg at bedtime, Protonix 40 mg IV q.24 hours. Savella 15 mg t.i.d., cefepime 2 g IV q.12 hours, hydrocodone 1 q.6h, Neurontin 600 mg t.i.d., vitamin D3 a 1000 units a day. Tessalon 100 mg t.i.d., butalbital APAP and caffeine 1 q.4 hours p.r.n., aspirin 81 mg a day. Zyloprim 100 mg daily. cc: MD Rebecca Christensen MD
[2016-12-27] MEDS: PROTONIX IV SCH (13:50)
[2016-12-27] MEDS: SODIUM CHLORIDE 0.9% INJ SCH (13:50)
[2016-12-27] MEDS: SEROQUEL PO SCH (22:12)
[2016-12-28] MEDS: VANCOMYCIN 2 GM in NS 500 ML IV SCH (01:48)
[2016-12-28] MEDS: DUONEB (A & A) INH SCH ×4 (03:20→22:51)
[2016-12-28] MEDS: LOVENOX SUBQ SCH (06:22)
[2016-12-28] MEDS: SAVELLA PO SCH ×3 (10:00→17:54)
[2016-12-28] MEDS: TOPAMAX PO SCH ×2 (10:00→23:37)
[2016-12-28] MEDS: NEURONTIN PO SCH ×3 (10:00→17:53)
[2016-12-28] MEDS: FOLTX PO SCH (10:00)
[2016-12-28] MEDS: VITAMIN D PO SCH ×2 (10:00→23:36)
[2016-12-28] MEDS: ZYLOPRIM PO SCH (10:00)
[2016-12-28] MEDS: ASPIRIN PO SCH (10:01)
[2016-12-28] MEDS: TESSALON PO SCH ×3 (10:01→17:54)
[2016-12-28] MEDS: CALMOSEPTINE OINTMENT TOP PRN (10:02)
[2016-12-28] MEDS: NORCO-5 PO PRN ×2 (10:04→17:54)
[2016-12-28] MEDS: MAXIPIME 2 GM/NS 2 GM/100 ML IVPB IV SCH ×2 (12:53→23:35)
[2016-12-28] MEDS: PROTONIX IV SCH (13:04)
[2016-12-28] MEDS: SODIUM CHLORIDE 0.9% INJ SCH (13:04)
[2016-12-28] MEDS: TYLENOL PO PRN (16:03)
[2016-12-28] MEDS: SEROQUEL PO SCH (23:37)
[2016-12-29] MEDS: DUONEB (A & A) INH SCH ×4 (03:45→22:23)
[2016-12-29] MEDS: LOVENOX SUBQ SCH (06:14)
[2016-12-29] MEDS: NORCO-5 PO PRN ×2 (09:50→17:20)
[2016-12-29] MEDS: NEURONTIN PO SCH ×3 (09:51→17:11)
[2016-12-29] MEDS: FOLTX PO SCH (09:51)
[2016-12-29] MEDS: TESSALON PO SCH ×3 (09:51→17:11)
[2016-12-29] MEDS: ASPIRIN PO SCH (09:51)
[2016-12-29] MEDS: ZYLOPRIM PO SCH (09:52)
[2016-12-29] MEDS: TOPAMAX PO SCH ×2 (09:52→22:16)
[2016-12-29] MEDS: VITAMIN D PO SCH ×2 (09:52→22:16)
[2016-12-29] MEDS: SAVELLA PO SCH ×3 (09:52→17:11)
[2016-12-29] MEDS: CALMOSEPTINE OINTMENT TOP PRN (09:53)
[2016-12-29] MEDS: MAXIPIME 2 GM/NS 2 GM/100 ML IVPB IV SCH ×2 (11:06→22:16)
[2016-12-29] MEDS: VANCOMYCIN 2 GM in NS 500 ML IV SCH (14:03)
[2016-12-29] MEDS: PROTONIX IV SCH (14:06)
[2016-12-29] MEDS: SODIUM CHLORIDE 0.9% INJ SCH (14:06)
[2016-12-29] MEDS: FIORICET PO PRN (14:27)
[2016-12-29] MEDS: SEROQUEL PO SCH (22:16)
[2016-12-30] MEDS: DUONEB (A & A) INH SCH ×2 (03:32→09:34)
[2016-12-30] MEDS: LOVENOX SUBQ SCH (06:44)
[2016-12-30 08:14] LABS: MANUAL DIFF NEEDED? NO
[2016-12-30 08:17] LABS: BASO% 0.7 % (0.0-0.8); EOS# 0.56 X1000 (0.0-0.7); EOS% 6.2 % (0.0-10.0); HEMATOCRIT 32.3 % (37.0-47.0); HEMOGLOBIN 10.1 g/dL (12.0-16.0); IMM GRAN# 0.09 X1000 (0.0-0.04); LYMPH# 1.38 X1000 (1.2-3.4); LYMPH% 15.2 % (20.5-51.1); MCHC 31.3 g/dL (33-37); MCV 99.1 FL (81-99); MONO# 0.58 X1000 (0.11-0.59); MONO% 6.4 % (1.7-9.3); MPV 11.2 FL (7.4-10.4); NEUT% 70.5 % (42.2-75.2); PLT 321 X1000 (130-400); RBC 3.26 XMIL (4.2-5.4)
[2016-12-30 08:34] LABS: AGAP 9; BUN 24 mg/dL (8-22); CALCIUM 9.2 mg/dL (8.8-10.2); CHLORIDE 101 mmol/L (98-107); COSMO 285; POTASSIUM 4.4 mmol/L (3.5-5.1); SODIUM 141 mmol/L (136-145); TCO2 31 mmol/L (25-35)
--- NOTE | 2016-12-30 10:24 | Diag Imaging Result Doc PS360 ---
EXAM: CHEST-2 VIEWS HISTORY: evaluate PNA TECHNIQUE: COMPARISON: 12/27/2016. FINDINGS: No change in the right-sided PICC line. There are infiltrates in the right lung. The heart remains mildly prominent. Mild central vascular distention. I believe there are tiny pleural effusions. IMPRESSION: No interval improvement. Electronically signed by Getachew Caro 12/30/2016 10:21 AM
[2016-12-30] MEDS: SAVELLA PO SCH ×2 (10:53→14:04)
[2016-12-30] MEDS: FOLTX PO SCH (10:53)
[2016-12-30] MEDS: ZYLOPRIM PO SCH (10:53)
[2016-12-30] MEDS: TOPAMAX PO SCH (10:53)
[2016-12-30] MEDS: VITAMIN D PO SCH (10:53)
[2016-12-30] MEDS: TESSALON PO SCH ×2 (10:53→14:04)
[2016-12-30] MEDS: ASPIRIN PO SCH (10:53)
[2016-12-30] MEDS: NEURONTIN PO SCH ×2 (10:54→14:04)
[2016-12-30] MEDS: MAXIPIME 2 GM/NS 2 GM/100 ML IVPB IV SCH (10:55)
[2016-12-30] MEDS ORDERED: STERILE WATER INJ. INJ ONE (11:25)
[2016-12-30] MEDS ORDERED: CATHFLO IV ONE (11:25)
[2016-12-30 11:26] VITALS: BP 127/42
--- NOTE | 2016-12-30 11:57 | PROGRESS NOTE ---
DATE: 12/30/2016 PRESENT ILLNESS: The patient has a right lung pneumonia. MEDICATIONS: This is day 9 of treatment with a combination of vancomycin and cefepime. PHYSICAL EXAMINATION: Vital signs: Temperature is 98.2 degrees, pulse 90, respirations 15, blood pressure 120/67. General: This is an obese, elderly female. She is in no acute distress. Cardiovascular: Heart rate today seemed irregular to me. Extremities: Legs-edema is present in both of them. The patient has a PICC in her right arm. The PICC site is not erythematous or tender. Lungs: There were rales and rhonchi on the right side. The left side was clear. Abdomen: Soft and nontender. LABORATORY AND X-RAY: The chest x-ray shows a persistent right lung infiltrate. The patient's CBC today shows a white count of 9060, hemoglobin 10.1, and platelet count 321,000. Creatinine is 0.9. GFR is greater than 60. Sputum grew normal winter. ASSESSMENT AND PLAN: The patient has a right lung pneumonia. Clinically I agree with Dr. Crawford that the patient is better. Our plan is to send the patient home. She has a PICC in her arm. One of the ports is occluded and I have ordered cath flow to be inserted in that. I have put a consult in for [facility] to supply the patient's home IV antibiotic. At first I thought I would only need to treat her for a total of 14 days, but given the fact that her chest x-ray has not changed and this is day 9 already, I am going to treat her for another 2 weeks, and after that, I will see her in my office and repeat the chest x-ray to see if we are making some progress. COMORBIDITY: Is obesity. cc: MD Rebecca Velasquez MD
--- NOTE | 2016-12-30 12:16 | PROGRESS NOTE ---
DATE: 12/30/2016 SUBJECTIVE: Actually she is ready go home. She says she feels good. PHYSICAL EXAMINATION: Temp 98.6 degrees, pulse of 82, respirations 18, blood pressure 127/42.HEENT: Pupils are equal, round. Lungs: Clear in all lung wright. Cardiovascular: Regular rhythm and rate without murmur or S3. Abdomen: Soft. Skin: Warm and dry. LABORATORY: Review of lab from this morning. White count 9,060, hematocrit 99, platelet count 321,000. Electrolytes okay. PLAN: So I will get her ready to go home. cc: MD Rebecca Christensen MD
--- NOTE | 2016-12-30 12:25 | DISCHARGE SUMMARY ---
ADMISSION DATE: 12/19/2016 DISCHARGE DATE: 12/30/2016 This is a patient of Dr. Rebecca Crawford. HISTORY AND HOSPITAL COURSE: She presented with a 1-week history weakness, 2-day history of cough, chills, and greenish sputum. This is a 75-year-old who has a past medical history of COPD on 4 L of nasal cannula at home, hypertension, dyslipidemia, hypothyroidism, fibromyalgia, irritable bowel syndrome, chronic gout, anxiety disorder, questionable history of congestive heart failure. The patient has had a history of pulmonary fibrosis. Came in on the 19 of December complaining of a 1-week history of progressive weakness of inexplicable reason and increased dyspnea on exertion. She denies any vomiting, diarrhea. No blood loss. She says the last 2 days things got worse and became dyspneic at rest. She started coughing up greenish sputum, occasional bloody streaks. Denies any fever but states she had some chills. Reports she has been having right pleuritic chest pain but no palpitations or other symptoms of chest pain to suggest angina. Review of systems was notable for constipation and history of irritable bowel syndrome. Admitted with probable sepsis, left lower lobe pneumonia seen on chest x-ray, anemia of chronic inflammation, COPD exacerbation, hypotension, dyslipidemia, hypothyroidism, history of fibromyalgia, history of chronic gout, irritable bowel syndrome, and pulmonary fibrosis. The patient was treated with bronchodilators. She had a chest x-ray done on admission with no contrast, irregular infiltrates in right upper lobes suspicious for pneumonia, COPD changes, mild mediastinal adenopathy. She had an echocardiogram done on 12/19/2016, day of admission, normal left ventricular cavity size, estimated ejection fraction 50 to 60%. Peak flow across tricuspid valve was 3 m/sec. Pulmonary artery pressure about 45 mmHg. She does have severe aortic stenosis with a peak gradient of [address] Galarza was consulted for right upper lobe lung pneumonia. She has had recurrent pneumonia, 3 or 4 bouts of pneumonia this last year. Also had some sinusitis. He put her aztreonam and Levaquin. She continued to show clinical progress. Dr. Zimmerman was consulted on 12/20. He agreed with the antibiotics for pneumonia. Continue present IV antibiotics. The patient was on bronchodilators, on some acid suppression. Chest x-ray showed improvement, decreased vascular congestion, stable infiltrate in the right, pneumonia was improving, infiltrate improving. Repeated a chest x-ray on 12/30/2016 and it was stable. The patient is clinically better and wanted to go home. She has finished antibiotics. No growth from blood cultures. Sputum culture, 2+ white blood cells, normal winter. So we will discharge home. DISCHARGE MEDICATIONS: Continue her previous medications. Discharge medicines will be as follows. Albuterol ipratropium she has at home, allopurinol 100 mg daily, aspirin 81 mg a day, Symbicort 168/4.5 two puffs b.i.d., calcium carbonate 500 mg b.i.d., vitamin D3 1000 units b.i.d., furosemide 20 mg q.a.m., gabapentin 600 mg t.i.d., hydrocodone 7.5/325 q.6 p.r.n., Respimat 1 puff 4 times a day, isosorbide mononitrate ER 30 mg daily, Cozaar 100 mg daily, Savella 50 mg t.i.d., omega 3 fatty acids 1000 mg daily, potassium chloride 10 mEq q.a.m., Seroquel 400 mg at bedtime, topiramate 25 mg b.i.d., vitamin B complex 1 a day. She has her 4 L of O2. FOLLOWUP: Follow up with Dr. Crawford in a couple of weeks. cc: MD Rebecca Christensen MD
[2016-12-30] MEDS: PROTONIX IV SCH (14:04)
--- NOTE | 2016-12-31 03:39 | PROGRESS NOTE ---
DATE: 12/30/2016 ADDENDUM: She did apparently get to go home. Plan was to continue antibiotics for another week for a total of 2 weeks. She has a PICC line. We will continue the cefepime and vancomycin. cc: MD Rebecca Christensen MD
--- NOTE | 2017-01-11 05:27 | PROVIDER DOCUMENTATION ---
This chart was entered by Tanja Nichols Scribe, acting as scribe for Glynn Cruz DO. HPI-General Adult - General Chief Complaint: Weakness Stated Complaint: Weakness Time Seen by Provider: 12/19/16 18:36 Source: patient Allergies/Adverse Reactions: Patient Allergies Allergy/AdvReac Type Severity Reaction Status Date / Time aripiprazole [From Abilify] Allergy Intermediate NAUSEA Verified 12/19/16 17:36 tramadol HCl * [From Ultram] Allergy Intermediate SHORTNESS Verified 12/19/16 17 :36 OF BREATH codeine Allergy Mild NAUSEA Verified 12/19/16 17:36 fluticasone propionate * Allergy Mild Unknown Verified 12/19/16 17:36 [From Advair Diskus] salmeterol xinafoate * Allergy Mild Unknown Verified 12/19/16 17:36 [From Advair Diskus] PARVIN Inhibitors AdvReac Intermediate ANAPHYLAXIS Verified 12/19/16 17:36 Penicillins AdvReac ANAPHYLAXIS Verified 12/19/16 17:36 Home Medications: Home Medication List Medication Instructions Recorded Confirmed Last Taken Type Allopurinol 100 mg PO DAILY 09/20/15 12/21/16 03/31/16 History Gabapentin 600 mg PO TID 09/20/15 12/21/16 03/31/16 History Losartan [Cozaar] 100 mg PO DAILY 09/20/15 12/21/16 03/31/16 History Milnacipran HCl [Savella] 50 mg PO TID 09/20/15 12/21/16 03/31/16 History Ipratropium/Albuterol INH 1 puff INH 4XDAY 11/30/15 12/21/16 03/31/16 History [Combivent Respimat Inhaler] Albuterol 2.5MG/Ipratrop 0.5MG 3 ml INH Q6H PRN PRN #0 neb 02/15/16 12/21/16 Rx [Duoneb (A & A)] Topiramate [Topamax] 25 mg PO BID #0 tablet 02/15/16 12/21/16 03/31/16 Rx Quetiapine Fumarate [Seroquel] 400 mg PO HS 03/17/16 12/21/16 03/31/16 History Budesonide/Formoterol Inhaler 2 puff INH RTBID #0 inhaler 03/19/16 12/21/16 Rx [Symbicort 160/4.5 Microgm Inhaler] Aspirin 81 mg PO DAILY 07/15/16 12/21/16 Unknown History Calcium Carbonate Chew [Tums] 500 mg PO BID 07/15/16 12/21/16 Unknown History Cholecalciferol (Vitamin D3) 1,000 unit PO BID 07/15/16 12/21/16 Unknown History [Vitamin D3] Furosemide 20 mg PO QAM PRN PRN 07/15/16 12/21/16 Unknown History [place]-3 Fatty Acids [Fish Oil] 1,000 mg PO DAILY 07/15/16 12/21/16 Unknown History Potassium Chloride 10 meq PO QAM PRN PRN 07/15/16 12/21/16 Unknown History Vitamin B Complex 1 each PO DAILY 07/15/16 12/21/16 Unknown History Hydrocodone Bit/Acetaminophen 1 each PO Q6H PRN PRN #0 tablet 07/17/16 12/21/16 Unknown Rx [Hydrocodon-Acetaminoph 7.5-325] Isosorbide Mononitrate E.r. [Imdur] 30 mg PO DAILY #0 tablet 07/17/16 12/21/16 Unknown Rx - History of Present Illness -Gen Adult Nature of Presenting Problems: 75 Y/O F presents to ED with Weakness. Pt states that she's been feeling weak since last weak and has developed a cough this week. Pt had several episodes of lower blood pressure while in ED. Pt c/o of pain in RLL. Location of Pain/Injury: reports: lower extremity (RLL), generalized Quality of Pain: reports: aching Severity: reports: moderate Onset/Duration: reports: last week Timing: reports: still present Associated Symptoms: reports: weakness. denies: cough, EENT symptoms, shortness of breath Similar Symptoms Previously?: No Review of Systems - Adult - REVIEW OF SYSTEMS - ADULT Constitutional: reports: other (general weakness). denies: chills, fever Eyes: reports: no symptoms reported Ears, Nose, Mouth & Throat: denies: ear pain, mouth/dental pain, throat swelling Cardiovascular: denies: chest pain, syncope Respiratory: reports: cough. denies: shortness of breath Gastrointestinal: denies: diarrhea, nausea, vomiting Genitourinary: reports: no symptoms reported Musculoskeletal: reports: muscle aches Integumentary: reports: no symptoms reported Neurological: reports: no symptoms reported Psychiatric: reports: no symptoms reported Endocrine: reports: no symptoms reported Hematologic/Lymphatic: reports: no symptoms reported Allergic/Immunologic: reports: no symptoms reported All Other Systems: Reviewed and Negative Past History - Adult - PAST MEDICAL HISTORY-ADULT Review of Records: reports: Old Records Reviewed, Nursing Assessment Review, Medications Reviewed, Social history reviewed & non-contributory. Major Childhood Illnesses: reports: denies history Cardiovascular: reports: CHF, HTN Respiratory: reports: asthma, COPD, sleep apnea, other (orthopnea) Gastrointestinal: reports: GERD Obstetrical/Gynecological: reports: denies history Genitourinary: reports: other (renal disease) Musculoskeletal: reports: denies history Neurological: reports: TIA Psychiatric: reports: depression Endocrine/Immune: reports: thyroid disorder Other Conditions: reports: denies history - PRIOR SURGERIES/PROCEDURES Surgical/Procedure History: reports: appendectomy (right BKA, thyroid, mastoid sx), hysterectomy, other (Right BKA) - PRIOR HOSPITALIZATIONS Prior Hospitalizations: reports: for similar symptoms - IMMUNIZATION STATUS Childhood Immunizations: See Nurse Assessment Flu Vaccine: See Nurse Assessment - FAMILY HISTORY Family History: reviewed, not pertinent - SOCIAL HISTORY Smoking: quit greater than 1 year Substance Use: none/never Alcohol Use Frequency: never Physical Exam-General - PHYSICAL EXAM-ADULT Initial Vital Signs Reviewed: Yes - CONSTITUTIONAL General Appearance: appears well, alert, mild distress - EYES Eyes: PERRL/EOMI, pink conjunctivae - HEAD, EARS, NOSE, MOUTH & THROAT HENMT: normocephalic/atraumatic, moist mucous membranes, normal ENT inspection, TMs normal, pharynx normal - NECK Neck: non-tender, full range of motion, supple, normal inspection - RESPIRATORY Respiratory: wheezing - CARDIOVASCULAR Cardiovascular: normal peripheral pulses, regular rate, rhythm - GASTROINTESTINAL (ABDOMEN) Abdominal Exam: normal bowel sounds, non tender, soft - LYMPHATIC Lymphatic: no adenopathy - MUSCULOSKELETAL Back Exam: normal inspection, no CVA tenderness, no vertebral tenderness Extremity: normal range of motion, non-tender - SKIN Integumentary: normal color, normal turgor, warm/dry - NEUROLOGIC 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: 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 II-XII nml as tested - PSYCHIATRIC Psych/Mental Status: normal mood/affect, normal thought content, normal thought process, oriented x 3 Progress - PLAN OF CARE/RESULTS Progress/Plan/Lab Results: Vital Signs - 8 hr 12/19/16 17:30 12/19/16 18:45 Temperature 97.0 F L Pulse Rate 78 75 Respiratory Rate 18 17 Blood Pressure 100/80 99/56 O2 Sat by Pulse Oximetry 94 L 99 Laboratory Results - last 24 hr 12/19/16 12/19/16 12/19/16 17:45 18:25 18:25 WBC RBC Hgb Hct MCV MCH MCHC RDW Std Deviation Plt Count MPV Immature Gran % (Auto) Neut % (Auto) Lymph % (Auto) [place] % (Auto) Eos % (Auto) Baso % (Auto) Immature Gran # (Auto) Neut # (Auto) Lymph # (Auto) [place] # (Auto) Eos # (Auto) Baso # (Auto) Sodium 138 Potassium 4.0 Chloride 103 Carbon Dioxide 22 L Anion Gap 13 BUN 44 H Creatinine 1.3 H Estimated GFR/1.73 m2 40 BUN/Creatinine Ratio 34 Glucose 106 H POC Glucose 139 H D Calculated Osmolality 287 Calcium 9.1 Total Bilirubin 0.70 AST 24 ALT 29 Alkaline Phosphatase 148 H Creatine Kinase 142 Troponin T < 0.010 [id number] Pept Total Protein 7.2 Albumin 3.4 L Globulin 4.0 Albumin/Globulin Ratio 1.0 12/19/16 12/19/16 18:25 18:25 WBC 11.81 H RBC 3.22 L Hgb 10.1 L Hct 31.5 L MCV 97.8 MCH 31.4 H MCHC 32.1 L RDW Std Deviation 15.7 H Plt Count 213 MPV 11.6 H Immature Gran % (Auto) 0.3 Neut % (Auto) 81.9 H Lymph % (Auto) 10.3 L [place] % (Auto) 6.6 Eos % (Auto) 0.8 Baso % (Auto) 0.1 Immature Gran # (Auto) 0.04 Neut # (Auto) 9.67 H Lymph # (Auto) 1.22 [place] # (Auto) 0.78 H Eos # (Auto) 0.09 Baso # (Auto) 0.01 Sodium Potassium Chloride Carbon Dioxide Anion Gap BUN Creatinine Estimated GFR/1.73 m2 BUN/Creatinine Ratio Glucose POC Glucose Calculated Osmolality Calcium Total Bilirubin AST ALT Alkaline Phosphatase Creatine Kinase Troponin T [id number] Pept 1534 H Total Protein Albumin Globulin Albumin/Globulin Ratio Orders Category Date Time Status Cardiac Monitoring DIRECTED Care 12/19/16 18:14 Active Oxygen Therapy- ED Nursing DIRECTED Care 12/19/16 18:14 Active Saline Loc NOW Care 12/19/16 18:14 Active CHEST-2 VIEWS [RAD] Stat Exams 12/19/16 18:14 Taken CBC WITH ELECTRONIC DIFF [HEME] Stat Lab 12/19/16 18:25 Completed CK PROFILE [SP CHEM] Stat Lab 12/19/16 18:25 Completed COMPREHENSIVE METABOLIC PANEL [CHEM] Stat Lab 12/19/16 18:25 Completed PRO B-NATRIURETIC PEPTIDE Stat Lab 12/19/16 18:25 Completed TROPONIN T Stat Lab 12/19/16 18:25 Completed 0.9% Sodium Chloride Inj [Ns] 1,000 ml Med 12/19/16 18:58 Active IV 999 mls/hr Aspirin Med 12/19/16 18:14 Discontinued 325 mg PO STAT STA EKG [EKG] Stat Ther 12/19/16 18:14 Ordered Result Diagrams: 12/30/16 08:00 12/30/16 08:00 - EKG 1 Time of EKG reading by physician:: 19:26 EKG Read and Signed by:: Glynn Cruz EKG Interpretation (*Must complete 3 of following elements*): Abnormal Rate: 79 Rhythm: SR with marked SA with frequent premature ventricular complexes QRS: RBB Comments: Abnormal ECG - CONSULTS/PCP/HOSPITALIST Notification #1 *Consult/PCP/Hospitalist*: Time Discussed: 20:42 Reason/Comments: Xfer to [facility] Consult Disposition: other (Xfer Accepted) Departure - Departure Time of Disposition Decision: 20:45 DIAGNOSIS: Hypotensive episode Disposition: ADMITTED INPATIENT 09 Certified Medical Emergency: Emergent Condition: Stable - Critical Care Note This patient required my direct & personal management of CC.: No This chart was documented by the indicated scribe, (Tanja Nichols Scribchucky) and accurately reflects the services I performed and decisions made by me, Glynn Cruz, DO, as attested by the provider's signature.
== END 2016-12-30 14:23 | disposition home health service (06) ==
LOC: P.ED 17:28 → SUATTDRO 21:10 → ICU 21:10 → 4N 12-21 18:28
PROVIDERS: ADMIT Internal Medicine; ATTEND Emergency Medicine

== ENCOUNTER 2018-11-16 09:59 | Inpatient (IN) ==
[2018-11-16] MEDS ORDERED: DUONEB (A & A) INH ONE (10:21)
[2018-11-16] MEDS ORDERED: SOLU-MEDROL IV ONE (10:21)
[2018-11-16] MEDS ORDERED: LASIX IV ONE (10:21)
[2018-11-16] MEDS ORDERED: VANCOMYCIN 1 GM/NS 1 GM/250 ML IVPB IV ONE ×2 (10:21→16:00)
[2018-11-16] MEDS ORDERED: LEVAQUIN 750 MG/D5W 750 MG/150 ML IVPB IV ONE (10:22)
[2018-11-16 10:53] LABS: BE 4.5 mmoll (-3.0-3.0); BLOOD TYPE ARTERIAL; HCO3-(ACT) 28.5 mmoll (20.0-26.0); METHB 0.5 % (0.0-1.5); O2(CT) 7.5 mL/dL (15.0-23.0); O2HB 95.7 % (95.0-99.0); PCO2(98.6) 44 mmHg (35-45); PO2(98.6) 130 mmHg (60-100); SAMPLE BLOOD; SAO2 96.7 % (95.0-100.0); pH(98.6) 7.43 (7.35-7.45)
[2018-11-16 11:10] LABS: MODALITY CANNULA
[2018-11-16 11:11] LABS: ALLEN TEST YES; THB 5.3 g/dL (11.5-17.4)
[2018-11-16] MEDS ORDERED: MORPHINE IV ONE (11:38)
[2018-11-16] MEDS ORDERED: ZOFRAN IV ONE (11:38)
[2018-11-16] MEDS ORDERED: BENADRYL PO ONE ×2 (11:39→12:15)
[2018-11-16] MEDS ORDERED: TYLENOL PO ONE (11:39)
[2018-11-16] MEDS ORDERED: LASIX IV SCH (11:45)
[2018-11-16 11:52] LABS: INR 1.07; PROTIME 14.5 Seconds (11.0-16.0)
[2018-11-16 11:53] LABS: BILIRUBIN URINE NEGATIVE (NEGATIVE); BLOOD URINE 4+ (NEGATIVE); CLARITY SLIGHTLY CLOUDY (CLEAR); COLOR YELLOW; GLUCOSE URINE NEGATIVE (NEGATIVE); KETONE URINE NEGATIVE (NEGATIVE); LEUKOCYTES URINE TRACE (NEGATIVE); NITRITE URINE NEGATIVE (NEGATIVE); PROTEIN URINE TRACE mg/dL (NEGATIVE); URINE BACTERIA 4+ /HFP; URINE CAST NONE SEEN /LPF; URINE CRYSTAL CA OXALATE PRESENT /HPF; URINE EPITHELIAL CELLS <10 /HPF (<10); URINE RBC <10 /HPF (<10); URINE SOURCE CATH; URINE YEAST PRESENT /HPF; UROBILINOGEN URINE NORMAL
[2018-11-16 11:54] LABS: OCCULT BLOOD 1 NEGATIVE (NEGATIVE)
--- NOTE | 2018-11-16 12:00 | Diag Imaging Result Doc PS360 ---
EXAM: CHEST-PORTABLE HISTORY: sob TECHNIQUE: Portable chest single view COMPARISON: 04/21/2017 FINDINGS: The lungs are well expanded. The heart is not enlarged. The vessels are not distended. There are mild increased interstitial markings in the lower lungs which may be fibrosis. No consolidation. No effusion identified. IMPRESSION: No pulmonary edema or definite pneumonia. Follow-up PA and lateral may be beneficial. Electronically signed by Getachew Caro 11/16/2018 11:58 AM
[2018-11-16 12:07] LABS: BASO# 0.03 X1000 (0.0-0.2); BASO% 0.3 % (0.0-0.8); EOS# 0.58 X1000 (0.0-0.7); EOS% 5.6 % (0.0-10.0); HEMATOCRIT 27.1 % (37.0-47.0); HEMOGLOBIN 8.4 g/dL (12.0-16.0); IMM GRAN# 0.04 X1000 (0.0-0.04); IMM GRAN% 0.4 % (0.0-0.5); LYMPH# 1.39 X1000 (1.2-3.4); LYMPH% 13.4 % (20.5-51.1); MCH 28.3 PG (27-31); MCV 91.2 FL (81-99); MONO% 5.8 % (1.7-9.3); MPV 11.2 FL (7.4-10.4); NEUT# 7.72 X1000 (1.4-6.5); NEUT% 74.5 % (42.2-75.2); PLT 384 X1000 (130-400); RBC 2.97 XMIL (4.2-5.4); WBC 10.36 X1000 (4.8-10.8)
[2018-11-16 12:08] LABS: D-DIMER 2.2 ug/mLFEU (0.0-0.52)
[2018-11-16 12:20] LABS: AGAP 11; ALBUMIN 3.1 g/dL (3.5-5.0); ALKALINE PHOSPHATASE 182 U/L (32-104); BUN 17 mg/dL (8-22); CALCIUM 8.4 mg/dL (8.8-10.2); CHLORIDE 107 mmol/L (98-107); COSMO 288; CREATININE 0.8 mg/dL (0.5-0.9); ESTIMATED GFR > 60; GLUCOSE 99 mg/dL (70-104); GOT 42 U/L (10-30); GPT 23 U/L (10-36); MAGNESIUM 1.9 mg/dL (1.5-2.7); PHOSPHORUS 3.2 mg/dL (2.7-4.5); SODIUM 144 mmol/L (136-145); TCO2 27 mmol/L (25-35); TOTAL PROTEIN 6.7 g/dL (6.3-8.3)
[2018-11-16 12:21] LABS: INFLUENZA A NEGATIVE (NEGATIVE); INFLUENZA B NEGATIVE (NEGATIVE)
[2018-11-16 12:25] LABS: CK PROFILE 883 U/L (24-173)
[2018-11-16 12:42] LABS: CK-MB 17.37 ng/mL (0.0-5.0)
--- NOTE | 2018-11-16 12:42 | PROVIDER DOCUMENTATION ---
This chart was entered by Karley Singh Scribe, acting as scribe for Julio Ponce MD. HPI-Respiratory General - General Chief Complaint: Shortness of Breath Stated Complaint: SOB/ HURT ALL OVER Time Seen by Provider: 11/16/18 10:00 Source: patient, EMS Allergies/Adverse Reactions: Patient Allergies Allergy/AdvReac Type Severity Reaction Status Date / Time aripiprazole [From Abilify] Allergy Intermediate NAUSEA Verified 12/19/16 17:36 tramadol HCl * [From Ultram] Allergy Intermediate SHORTNESS Verified 12/19/16 17:36 OF BREATH codeine Allergy Mild NAUSEA Verified 12/19/16 17:36 fluticasone propionate * Allergy Mild Unknown Verified 12/19/16 17:36 [From Advair Diskus] salmeterol xinafoate * Allergy Mild Unknown Verified 12/19/16 17:36 [From Advair Diskus] PARVIN Inhibitors AdvReac Intermediate ANAPHYLAXIS Verified 12/19/16 17:36 Penicillins AdvReac ANAPHYLAXIS Verified 12/19/16 17:36 Home Medications: Home Medication List Medication Instructions Recorded Confirmed Last Taken Type Allopurinol 100 mg PO DAILY 09/20/15 11/16/18 03/31/16 History Gabapentin 600 mg PO TID 09/20/15 11/16/18 03/31/16 History Milnacipran HCl [Savella] 50 mg PO TID 09/20/15 11/16/18 03/31/16 History Ipratropium/Albuterol INH 1 puff INH 4XDAY 11/30/15 11/16/18 03/31/16 History [Combivent Respimat Inhaler] Albuterol 2.5MG/Ipratrop 0.5MG 3 ml INH Q6H PRN PRN #0 neb 02/15/16 11/16/18 03/31/16 Rx [Duoneb (A & A)] Topiramate [Topamax] 25 mg PO BID #0 tablet 02/15/16 11/16/18 03/31/16 Rx Quetiapine Fumarate [Seroquel] 400 mg PO HS 03/17/16 11/16/18 03/31/16 History Budesonide/Formoterol Inhaler 2 puff INH RTBID #0 inhaler 03/19/16 11/16/18 03/31/16 Rx [Symbicort 160/4.5 Microgm Inhaler] Aspirin 81 mg PO DAILY 07/15/16 11/16/18 Unknown History Calcium Carbonate Chew [Tums] 500 mg PO BID 07/15/16 11/16/18 Unknown History Cholecalciferol (Vitamin D3) 1,000 unit PO BID 07/15/16 11/16/18 Unknown History [Vitamin D3] Furosemide 20 mg PO QAM PRN PRN 07/15/16 11/16/18 Unknown History Potassium Chloride 10 meq PO QAM PRN PRN 07/15/16 11/16/18 Unknown History Vitamin B Complex 1 each PO DAILY 07/15/16 11/16/18 Unknown History Isosorbide Mononitrate E.r. [Imdur] 30 mg PO DAILY #0 tablet 07/17/16 11/16/18 Unknown Rx Azithromycin 1 tab PO DAILY 11/16/18 11/16/18 Unknown History Iron,Carbonyl/Ascorbic Acid [Fe C 1 tab PO DAILY 11/16/18 11/16/18 Unknown History Tablet] Omeprazole 1 cap PO QAM 11/16/18 11/16/18 Unknown History - History of Present Illness-Resp Nature of Presenting Problem: 77 yof presents to ED by EMS c/o of SOB and pain all over for the last week that got worse today. EMS states pt dropped her o2 and couldn't reach it so called them. Pt also reports a cough that sometimes produces greenish/brown mucous. Pt reports being on nebulizer treatments and oxygen therapy at home. Pt has hx of CHF, HTN, COPD, Asthma, GERD and orthopnea. Pt denies nausea, vomiting, diarrhea or blood in stool. Pt blood pressure is 160/104 upon exam. Quality of Pain: reports: aching Severity in ED: reports: moderate Onset/Duration: reports: 1 week ago Timing: reports: still present, changing over time Cough Quality/Degree: reports: productive cough (greenish/brown sometimes) Current Respiratory Medication Therapy: Initiated A/A nebulizer, Initiated steroid inhaler, Initiated other (oxygen) Modifying Factors: improves with: oxygen. worse with: exertion, lying down Associated Symptoms: reports: muscle/bodyaches, wheezing Review of Systems - Adult - REVIEW OF SYSTEMS - ADULT Constitutional: reports: see HPI, fatique. denies: chills, fever Eyes: reports: no symptoms reported Ears, Nose, Mouth & Throat: reports: no symptoms reported Cardiovascular: reports: see HPI. denies: palpitations, syncope Respiratory: reports: see HPI, cough, shortness of breath, wheezing. denies: excessive sputum production Gastrointestinal: reports: no symptoms reported Genitourinary: reports: no symptoms reported Musculoskeletal: reports: no symptoms reported Integumentary: reports: no symptoms reported Neurological: reports: no symptoms reported Psychiatric: reports: no symptoms reported Endocrine: reports: no symptoms reported Hematologic/Lymphatic: reports: no symptoms reported Allergic/Immunologic: reports: no symptoms reported All Other Systems: Reviewed and Negative Past History - Adult - PAST MEDICAL HISTORY-ADULT Review of Records: reports: Old Records Reviewed, Nursing Assessment Review, Medications Reviewed, Social history reviewed & non-contributory. Major Childhood Illnesses: reports: denies history Cardiovascular: reports: CHF, HTN Respiratory: reports: asthma, COPD, sleep apnea, other (orthopnea) Gastrointestinal: reports: GERD Obstetrical/Gynecological: reports: denies history Genitourinary: reports: other (renal disease) Musculoskeletal: reports: denies history Neurological: reports: TIA Psychiatric: reports: depression Endocrine/Immune: reports: thyroid disorder Other Conditions: reports: denies history - PRIOR SURGERIES/PROCEDURES Surgical/Procedure History: reports: appendectomy (right BKA, thyroid, mastoid sx), hysterectomy, other (Right BKA) - PRIOR HOSPITALIZATIONS Prior Hospitalizations: reports: for similar symptoms - IMMUNIZATION STATUS Childhood Immunizations: See Nurse Assessment Flu Vaccine: See Nurse Assessment - FAMILY HISTORY Family History: reviewed, not pertinent - SOCIAL HISTORY Smoking: denies Physical Exam-General - PHYSICAL EXAM-ADULT Initial Vital Signs Reviewed: Yes - CONSTITUTIONAL General Appearance: appears well, alert. negative: anxious, combative - EYES Eyes: PERRL/EOMI. negative: photophobia - HEAD, EARS, NOSE, MOUTH & THROAT HENMT: moist mucous membranes, normal ENT inspection. negative: pharyngeal eryt pee, tonsillar exudate - NECK Neck: non-tender, full range of motion, supple, normal inspection. negative: Brudzinski's sign, carotid bruit - RESPIRATORY Respiratory: chest non-tender, wheezing (expiratory and inspiratory, bilateral ly) - CARDIOVASCULAR Cardiovascular: normal peripheral pulses, systolic murmur (3/6 upper sternal). negative: no edema (3-4+ pitting edema left anterior roy), bradycardia, tachycardia - GASTROINTESTINAL (ABDOMEN) Abdominal Exam: normal bowel sounds, non tender, soft. negative: rigid, rebound, tenderness - GENITOURINARY Rectal Exam: normal exam, normal rectal tone. negative: black stool, blood streaked stool, hemorrhoids Hemoccult Exam: other (see lab report) - LYMPHATIC Lymphatic: no adenopathy. negative: striations - MUSCULOSKELETAL Back Exam: normal inspection. negative: swelling Extremity: erythema, swelling (3-4+pitting edema, left), other (right foot amputated 4yrs ago). negative: normal inspection - SKIN Integumentary: erythema (cellulitic changes left anterior roy), tenderness. negative: cyanosis, jaundice - PSYCHIATRIC Psych/Mental Status: normal mood/affect, normal thought content. negative: paranoid Progress - PLAN OF CARE/RESULTS Progress/Plan/Lab Results: Vital Signs - 8 hr 11/16/18 09:59 11/16/18 11:14 Temperature 98 F Pulse Rate 88 88 Respiratory Rate 20 20 Blood Pressure 160/104 O2 Sat by Pulse Oximetry 97 97 Laboratory Results - last 24 hr 11/16/18 11/16/18 11/16/18 10:38 10:40 10:40 WBC 10.36 RBC 2.97 L Hgb 8.4 L Hct 27.1 L MCV 91.2 MCH 28.3 MCHC 31.0 L RDW Std Deviation 16.0 H Plt Count 384 MPV 11.2 H Immature Gran % (Auto) 0.4 Neut % (Auto) 74.5 Lymph % (Auto) 13.4 L Miller % (Auto) 5.8 Eos % (Auto) 5.6 Baso % (Auto) 0.3 Immature Gran # (Auto) 0.04 Neut # (Auto) 7.72 H Lymph # (Auto) 1.39 Miller # (Auto) 0.60 H Eos # (Auto) 0.58 Baso # (Auto) 0.03 PT INR D-Dimer, Quantitative Specimen Type ARTERIAL Sample Site L RADIAL pH 7.43 pCO2 44 pO2 130 H HCO3 28.5 H Base Excess 4.5 H Oxyhemoglobin 95.7 ABG O2 Sat (Calculated) 7.5 L ABG O2 Saturation 96.7 ABG Carboxyhemoglobin 0.50 ABG Methemoglobin 0.5 Kenneth Test YES A-a O2 Difference 72.0 Total Hemoglobin 5.3 L Lactate 0.60 Liter Flow 4.0 Blood Gas Modality CANNULA FiO2 % 36.0 Sodium 144 Potassium 4.0 Chloride 107 Carbon Dioxide 27 Anion Gap 11 BUN 17 Creatinine 0.8 Estimated GFR/1.73 m2 > 60 BUN/Creatinine Ratio 21 Glucose 99 Calculated Osmolality 288 Calcium 8.4 L Phosphorus 3.2 Magnesium 1.9 Total Bilirubin 0.30 AST 42 H ALT 23 Alkaline Phosphatase 182 H Creatine Kinase 883 H Troponin T [id number] Pept Total Protein 6.7 Albumin 3.1 L Globulin 4.0 Albumin/Globulin Ratio 1.0 Plasma Lactate Urine Source Urine Color Urine Clarity Urine pH Ur Specific [place] Urine Protein Urine Ketones Urine Blood Urine Nitrite Urine Bilirubin Urine Urobilinogen Urine Microscopic RBC Urine WBC Urine Microscopic WBC Ur Epithelial Cells Urine Crystals Urine Bacteria Urine Casts Urine Yeast Urine Glucose Stool Occult Blood Influenza A (Rapid) Influenza B (Rapid) 11/16/18 11/16/18 11/16/18 10:40 10:40 10:40 WBC RBC Hgb Hct MCV MCH MCHC RDW Std Deviation Plt Count MPV Immature Gran % (Auto) Neut % (Auto) Lymph % (Auto) Miller % (Auto) Eos % (Auto) Baso % (Auto) Immature Gran # (Auto) Neut # (Auto) Lymph # (Auto) Miller # (Auto) Eos # (Auto) Baso # (Auto) PT 14.5 INR 1.07 D-Dimer, Quantitative 2.20 H Specimen Type Sample Site pH pCO2 pO2 HCO3 Base Excess Oxyhemoglobin ABG O2 Sat (Calculated) ABG O2 Saturation ABG Carboxyhemoglobin ABG Methemoglobin Kenneth Test A-a O2 Difference Total Hemoglobin Lactate Liter Flow Blood Gas Modality FiO2 % Sodium Potassium Chloride Carbon Dioxide Anion Gap BUN Creatinine Estimated GFR/1.73 m2 BUN/Creatinine Ratio Glucose Calculated Osmolality Calcium Phosphorus Magnesium Total Bilirubin AST ALT Alkaline Phosphatase Creatine Kinase Troponin T 0.071 [id number] Pept Total Protein Albumin Globulin Albumin/Globulin Ratio Plasma Lactate Urine Source Urine Color Urine Clarity Urine pH Ur Specific [place] Urine Protein Urine Ketones Urine Blood Urine Nitrite Urine Bilirubin Urine Urobilinogen Urine Microscopic RBC Urine WBC Urine Microscopic WBC Ur Epithelial Cells Urine Crystals Urine Bacteria Urine Casts Urine Yeast Urine Glucose Stool Occult Blood Influenza A (Rapid) NEGATIVE Influenza B (Rapid) NEGATIVE 11/16/18 11/16/18 11/16/18 10:40 10:40 10:59 WBC RBC Hgb Hct MCV MCH MCHC RDW Std Deviation Plt Count MPV Immature Gran % (Auto) Neut % (Auto) Lymph % (Auto) Miller % (Auto) Eos % (Auto) Baso % (Auto) Immature Gran # (Auto) Neut # (Auto) Lymph # (Auto) Miller # (Auto) Eos # (Auto) Baso # (Auto) PT INR D-Dimer, Quantitative Specimen Type Sample Site pH pCO2 pO2 HCO3 Base Excess Oxyhemoglobin ABG O2 Sat (Calculated) ABG O2 Saturation ABG Carboxyhemoglobin ABG Methemoglobin Kenneth Test A-a O2 Difference Total Hemoglobin Lactate Liter Flow Blood Gas Modality FiO2 % Sodium Potassium Chloride Carbon Dioxide Anion Gap BUN Creatinine Estimated GFR/1.73 m2 BUN/Creatinine Ratio Glucose Calculated Osmolality Calcium Phosphorus Magnesium Total Bilirubin AST ALT Alkaline Phosphatase Creatine Kinase Troponin T Hnv-Q-Axyyafuvvkv Pept 1453 H Total Protein Albumin Globulin Albumin/Globulin Ratio Plasma Lactate 0.9 Urine Source CATH Urine Color YELLOW Urine Clarity SLIGHTLY CLOUDY A Urine pH 5.0 Ur Specific [place] 1.020 Urine Protein TRACE A Urine Ketones NEGATIVE Urine Blood 4+ Urine Nitrite NEGATIVE Urine Bilirubin NEGATIVE Urine Urobilinogen NORMAL Urine Microscopic RBC <10 Urine WBC TRACE A Urine Microscopic WBC 10-20 A Ur Epithelial Cells <10 Urine Crystals CA OXALATE PRESENT Urine Bacteria 4+ Urine Casts NONE SEEN Urine Yeast PRESENT Urine Glucose NEGATIVE Stool Occult Blood Influenza A (Rapid) Influenza B (Rapid) 11/16/18 11:04 WBC RBC Hgb Hct MCV MCH MCHC RDW Std Deviation Plt Count MPV Immature Gran % (Auto) Neut % (Auto) Lymph % (Auto) Miller % (Auto) Eos % (Auto) Baso % (Auto) Immature Gran # (Auto) Neut # (Auto) Lymph # (Auto) Miller # (Auto) Eos # (Auto) Baso # (Auto) PT INR D-Dimer, Quantitative Specimen Type Sample Site pH pCO2 pO2 HCO3 Base Excess Oxyhemoglobin ABG O2 Sat (Calculated) ABG O2 Saturation ABG Carboxyhemoglobin ABG Methemoglobin Kenneth Test A-a O2 Difference Total Hemoglobin Lactate Liter Flow Blood Gas Modality FiO2 % Sodium Potassium Chloride Carbon Dioxide Anion Gap BUN Creatinine Estimated GFR/1.73 m2 BUN/Creatinine Ratio Glucose Calculated Osmolality Calcium Phosphorus Magnesium Total Bilirubin AST ALT Alkaline Phosphatase Creatine Kinase Troponin T Ogy-T-Gipdpuhucsu Pept Total Protein Albumin Globulin Albumin/Globulin Ratio Plasma Lactate Urine Source Urine Color Urine Clarity Urine pH Ur Specific [place] Urine Protein Urine Ketones Urine Blood Urine Nitrite Urine Bilirubin Urine Urobilinogen Urine Microscopic RBC Urine WBC Urine Microscopic WBC Ur Epithelial Cells Urine Crystals Urine Bacteria Urine Casts Urine Yeast Urine Glucose Stool Occult Blood NEGATIVE Influenza A (Rapid) Influenza B (Rapid) Orders Category Date Time Status Cardiac Monitoring DIRECTED Care 11/16/18 11:42 Active Finger Stick Blood Sugar (ED) DIRECTED Care 11/16/18 10:17 Active Ba Cath Insertion ORDERED Care 11/16/18 10:17 Active Misc. NRSG Communication Order DIRECTED Care 11/16/18 11:39 Active Oxygen Therapy- ED Nursing DIRECTED Care 11/16/18 11:43 Active Saline Loc NOW Care 11/16/18 11:42 Active Transfuse .Give-Transfuse Care 11/16/18 11:39 Active CHEST-PORTABLE [RAD] Stat Exams 11/16/18 10:19 Completed CTA [CT ANGIOGRM PULMONARY ARTERIES] [CT] Stat Exams 11/16/18 12:27 Ordered ABG [RESP] Routine Lab 11/16/18 10:38 Completed BLOOD CULTURE [BLDCUL] Stat Lab 11/16/18 10:59 Ordered CBC WITH ELECTRONIC DIFF [HEME] Stat Lab 11/16/18 10:40 Completed CK PROFILE [SP CHEM] Stat Lab 11/16/18 10:40 Results COMPREHENSIVE METABOLIC PANEL [CHEM] Stat Lab 11/16/18 10:40 Results D-DIMER [COAG] Stat Lab 11/16/18 10:[address] Stat Lab 11/16/18 10:40 Completed LACTATE, PLASMA [CHEM] Stat Lab 11/16/18 10:59 Completed MAGNESIUM [CHEM] Stat Lab 11/16/18 10:40 Results OCCULT BLOOD SCREEN STOOL PL Stat Lab 11/16/18 11:04 Completed PRO B-NATRIURETIC PEPTIDE Stat Lab 11/16/18 10:40 Completed PROTIME WITH INR [COAG] Stat Lab 11/16/18 10:40 Completed SPUTUM CULTURE WITH GRAM STAIN [RM] Stat Lab 11/16/18 10:19 Uncollected TROPONIN T Stat Lab 11/16/18 10:40 Completed TYPE & SCREEN [BBK] Stat Lab 11/16/18 10:[address] W/POSS RFLX CULT [URINALYSIS] Stat Lab 11/16/18 10:40 Completed URINE CULTURE [RM] Routine Lab 11/16/18 11:54 Ordered phos [PHOSPHORUS] [CHEM] Stat Lab 11/16/18 10:40 Results Acetaminophen [Tylenol] Med 11/16/18 11:39 Discontinued 500 mg PO PREMED ONE Albuterol 2.5MG/Ipratrop 0.5MG [Duoneb (A & A)] Med 11/16/18 10:21 Discontinued 3 ml INH NOW ONE Diphenhydramine [Benadryl] Med 11/16/18 12:15 Discontinued 25 mg PO PREMED ONE Furosemide [Lasix] Med 11/16/18 10:21 Discontinued 20 mg IV NOW ONE Furosemide [Lasix] Med 11/16/18 11:45 Discontinued 40 mg IV AFTER TRANSFUSION Levofloxacin 750 mg/D5w [Levaquin 750 mg/D5w] Med 11/16/18 10:22 Discontinued 750 mg in 150 ml IV NOW Methylprednisolone Sod Succ [Solu-Medrol] Med 11/16/18 10:21 Discontinued 125 mg IV NOW ONE Morphine Med 11/16/18 11:38 Discontinued 2 mg IV NOW ONE Ondansetron [Zofran] Med 11/16/18 11:38 Discontinued 4 mg IV NOW ONE Vancomycin 1 gm/Ns Med 11/16/18 10:21 Discontinued 1 gm in 250 ml IV NOW Aerosol Treatments Routine Oth 11/16/18 10:21 Active Aerosol Treatments Stat Oth 11/16/18 10:21 Active EKG [EKG] Stat Ther 11/16/18 10:18 Ordered Venous U/S Left Leg Stat Ther 11/16/18 12:10 Completed Result Diagrams: 11/16/18 10:40 11/16/18 10:40 - REASSESSMENT Reassessment #1 Time Reassessed: 12:26 Status: improving (After meds. Given IV Vanc/Levaquin to cover COPD exacerbation/cellulitis left leg and UTI. CTA chest and Doppler US ordered. Needs admission. Transfusion held at this point since Hgb is not as bad as that on ABG.) Reassessment Comment: No signs of sepsis - EKG 1 Time of EKG reading by physician:: 10:09 EKG Read and Signed by:: Julio Ponce EKG Interpretation (*Must complete 3 of following elements*): Abnormal Rate: 87 Rhythm: normal sinus with frequent pvc [place]: right QRS: RBB - XRAY 1 XRAY Study: Chest Impression: Normal, See EMR Report ( EXAM: CHEST-PORTABLE HISTORY: sob TECHNIQUE: Portable chest single view COMPARISON: 04/21/2017 FINDINGS: The lungs are well expanded. The heart is not enlarged. The vessels are not distended. There are mild increased interstitial markings in the lower lungs which may be fibrosis. No consolidation. No effusion identified. IMPRESSION: No pulmonary edema or definite pneumonia. Follow-up PA and lateral may be beneficial. Electronically signed by Getachew Caro 11/16/2018 11:58 AM 11/16/18 1158 Interpreting Physician: Getachew Caro MD Dictated Date/Time: 11/16/18 1157 cc: Julio Ponce MD; None,PCP) Comparison with other Films: no changes - CONSULTS/PCP/HOSPITALIST Notification #1 *Consult/PCP/Hospitalist*: Dr. Bolaños paged for admission at 1229 Time Discussed: 12:42 Reason/Comments: agrees to admit Consult Disposition: Will see in ED Procedures - ADDITIONAL PROCEDURES Additional Procedure: OTHER (Blood gasses report: Abnormal interpertation; sever anemia, noraml acid; normal co2 on supplemental o2; needs blood transfusion Read at 11:00) Departure - Departure Date of Disposition Decision: 11/16/18 Time of Disposition Decision: 12:29 DIAGNOSIS: Acute dyspnea, COPD with exacerbation, Cellulitis of left leg without foot Acute exacerbation of CHF (congestive heart failure) Qualifiers: Heart failure type: combined systolic and diastolic Qualified Code(s): I50.43 - Acute on chronic combined systolic (congestive) and diastolic (congestive) heart failure Anemia Qualifiers: Anemia type: iron deficiency Iron deficiency anemia type: inadequate dietary iron intake Qualified Code(s): D50.8 - Other iron deficiency anemias Disposition: ADMITTED INPATIENT 09 Certified Medical Emergency: Emergent Condition: Fair Referrals and Follow-Ups: None,PCP [Primary Care Provider] - - Critical Care Note This patient required my direct & personal management of CC.: Yes Total Time (mins): 45 Critical Care Statement: This patient required my direct personal management to treat or rule out processes, the absence of which, could potentiallly result in sudden, clinically significant life or limb threatening deterioration. Attestation - Physician/ JERILYN Attestation Patient care was provided by Advanced Practice Provider:: No The physician spent face to face time with patient:: Yes Advanced Practice Provider documentation review:: Supervising physician onsite and consulted in the evaluation and care of this patient. The physician did have a face to face encounter with the patient. This chart was documented by the indicated scribe, (Karley Singh, Shahida) and accurately reflects the services I performed and decisions made by , Julio Ponce MD, as attested by the provider's signature.
--- NOTE | 2018-11-16 13:07 | Extremity Venous Study ---
EXAM: Venous U/S Left Leg HISTORY: leg swelling/cellulitis TECHNIQUE: Bustamante scale, color Doppler, and duplex evaluation was performed. COMPARISON: None. FINDINGS: The deep veins of the left lower extremity demonstrate appropriate compressibility and augmentation. No intraluminal thrombus is visualized. There is no evidence for DVT. The superficial veins appear patent. IMPRESSION: No evidence for deep venous thrombosis left lower extremity. Electronically signed by Monica Grady 11/16/2018 1:05 PM
[2018-11-16] MEDS ORDERED: ZOFRAN IV PRN (13:55)
[2018-11-16] MEDS ORDERED: SALINE LOCK IV FLUID XX ONE (13:55)
--- NOTE | 2018-11-16 14:17 | EKG Report ---
Test Performed on : 11/16/2018 10:07:31 AM Test Reason : sob Blood Pressure : / mmHG Vent. Rate : 087 BPM Atrial Rate : 087 BPM P-R Int : 148 ms QRS Dur : 156 ms QT Int : 440 ms P-R-T Axes : 045 050 025 degrees QTc Int : 529 ms Sinus rhythm. with occasional premature ventricular complexes. Possible Left atrial enlargement Right bundle branch block Abnormal ECG When compared with ECG of 26-DEC-2016 22:40, No significant change was found Unconfirmed Result
--- NOTE | 2018-11-16 14:35 | Diag Imaging Result Doc PS360 ---
EXAM: CT ANGIOGRM PULMONARY ARTERIES HISTORY: SOB, elevated D-Dimer TECHNIQUE: Routine CT angiogram with IV contrast. COMPARISON: 11/20/2016 FINDINGS: There is appropriate opacification of the pulmonary arteries and branches. There are no filling defects to suggest acute pulmonary embolism. There is no evidence for aortic aneurysm or dissection. There is coronary artery calcification scattered aortic calcification. There is a stable heterogeneous thyroid gland with multiple nodules. Stable mediastinal lymphadenopathy. Stable cardiomegaly and hiatal hernia. There or stable prominent reticular markings and groundglass infiltrate left upper lobe. Stable right fissure thickening. Stable calcified granulomata. There is increased consolidation right lower lobe compared with prior study. There is a nodular density within the medial left upper lobe image 44 sequence five is increased from the prior study and measures 9 mm maximal dimension today, previously 5 mm. No effusion. No pneumothorax. Images of the upper abdomen reveal significant constipation and cholecystectomy clips. IMPRESSION: 1.No evidence for acute pulmonary embolism. 2.Increased airspace disease right lower lobe compared with prior exam suggesting acute pneumonia or atelectasis superimposed on background fibrosis. 3.Enlargement noncalcified pulmonary nodule now measuring 9 mm image 43 sequence 5. Follow-up recommended. 4.Unchanged groundglass and reticular infiltrates left upper lobe. 5.Constipation. This exam was performed using automated exposure control, adjustment of mA or kV according to patient size, and/or use of iterative reconstruction technique. Electronically signed by Monica Grady 11/16/2018 2:33 PM
--- NOTE | 2018-11-16 15:21 | HISTORY AND PHYSICAL ---
PRIMARY CARE PROVIDER: Dr. Crawford. CHIEF COMPLAINT: Hurting all over, shortness of breath, wheezing. HISTORY OF PRESENT ILLNESS: Ms. Orta is a pleasant, 77-year-old female who carries a past medical history of COPD, prior tobacco history, morbid obesity, status post right below-the- knee amputation secondary to chronic nonhealing ankle fracture 4 years ago, chronic right lower extremity cellulitis, hypertension, hypothyroidism, dyslipidemia, fibromyalgia, irritable bowel syndrome, chronic anxiety, GERD with recurrent aspiration. She reported over the past 1 week she has had intractable neck and back pain that causes her to hurt all over, over 1 week. She was told more than a week ago to go off her Aleve and was just put on Tylenol. Since that time her pain has continued to increase but again, has worsened over the last week. She states this morning she was trying to get up out of bed and she was so weak she could not lift her left leg off of the bed. She became increasingly short of breath, started wheezing, was unable to reach her O2, so she called the ambulance. In the ambulance she received a breathing treatment and supplemental O2, as well as another breathing treatment in the ED and since that time her wheezing had subsided, as well as she feels like she has had an improvement in her shortness of breath. However, secondary to the pain, she is unable to take a full deep breath in without her back catching. She is not sure if she has had any fevers as she has been taking Tylenol around the clock for her neck and back pain. She has not had any chills, chest pain, nausea, vomiting, diarrhea, dysuria, or frequency, but she does report a nonproductive cough, shortness of breath, constipation, and wheezing. In the ED it was felt that she was in a COPD exacerbation. She did have elevated D-dimer. Doppler studies of the left leg does not show any evidence of DVT. We are currently pending A CTA of the chest as well as cervical, lumbar, and thoracic spine x-rays. She was initiated on levofloxacin and vancomycin for COPD as well as her lower extremity cellulitis [facility] PAST MEDICAL HISTORY: 1. COPD with chronic hypoxemic respiratory failure. 2. Morbid obesity. 3. Status post right [id number] amputation due to chronic nonhealing ankle fracture 4 years ago. 4. Hypertension. 5. Hypothyroidism. 6. Dyslipidemia. 7. Fibromyalgia. 8. Irritable bowel syndrome. 9. Chronic anxiety. 10. GERD with recurrent aspiration. PAST SURGICAL HISTORY: 1. Right [id number] amputation secondary to a nonhealing ankle fracture 4 years ago. 2. Left knee surgery. 3. Bronchoscopy performed by Dr. Zimmerman in 2012. 4. Colonoscopy by Dr. Randy Durham in 2016 related to internal and external hemorrhoids with repeat in October 2015. 5. Cystoscopic exam with bilateral retrograde ureteral pyelogram performed by Dr. 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 SOCIAL HISTORY: Patient lives at home alone in [place]. She gets around in a motorized chair. Prior tobacco use, but she quit several years ago. No alcohol or illicit drug use. FAMILY HISTORY: Positive for heart disease and diabetes mellitus. REVIEW OF SYSTEMS: A 14 point review of systems completely negative except for those mentioned in HPI. ALLERGIES: 1. Abilify causes nausea. 2. Ultram, shortness of breath. 3. Codeine, nausea. 4. Advair Diskus, unknown. 5. PARVIN inhibitors, anaphylaxis. 6. Penicillin, anaphylaxis. HOME MEDICATIONS: 1. Allopurinol 100 mg p.o. daily. 2. Aspirin 81 mg p.o. daily. 3. Azithromycin 250 mg p.o. daily. 4. Ipratropium albuterol inhaler 1 puff inhaled 4 times a day. 5. Icar C 1 tablet p.o. daily. 6. Lasix 20 mg p.o. q.a.m. p.r.n. edema. 7. Gabapentin 600 mg p.o. t.i.d. 8. Prilosec 40 mg p.o. q.a.m. 9. Potassium chloride 10 mEq p.o. q.a.m. 10. Savella 50 mg p.o. t.i.d. 11. Seroquel 400 mg p.o. at bedtime. 12. Tums 500 mg p.o. b.i.d. 13. Vitamin B complex 1 each p.o. daily. 14. Vitamin D3 1000 units p.o. b.i.d. 15. Albuterol ipratropium DuoNeb 3 mL inhaled q.6 hours p.r.n. wheezing. 16. Isosorbide mononitrate ER 30 mg p.o. daily. 17. Symbicort 160/4.5 mcg inhaler 2 puffs inhaled RT b.i.d. 18. Topamax 25 mg p.o. b.i.d. PHYSICAL EXAMINATION: VITAL SIGNS: Temperature is 98.3 degrees, heart rate 91, respirations 20, blood pressure 133/74, O2 is 95% on 2 L nasal cannula. GENERAL: Ms. Orta is a pleasant, 77-year-old female who is lying on her right side in the bed, in no acute distress. HEENT: Atraumatic, normocephalic. PERRL. Mucous membranes are extremely dry. CARDIOVASCULAR: S1 and S2 appreciated. Positive murmur. CHEST: Clear bilaterally. Bilaterally decreased in the basis. I did not note any wheezes, rales, or rhonchi. However, patient was unable to take in a deep breath secondary to catching back pain. GI: Obese, soft, nontender, nondistended. Positive bowel sounds 4 quadrants. EXTREMITIES: No clubbing or cyanosis. She is noted to have a right mdxwm-zkq-sbke amputation and left lower extremity cellulitis, non-oozing. NEUROLOGIC: No focal deficits noted. LABORATORY DATA: White count 10, hemoglobin and hematocrit 8 and 27, platelet count is 384,000. D-dimer 2.20. ABG, pH 7.43, pCO2 44, pCO2 130, bicarb 28, base excess 4.5, O2 saturation was 96% on 4 L. Sodium 144, potassium 4.0, BUN 17, creatinine 0.8, blood glucose 99, AST 42, alkaline phosphatase 182. CK 2, CK-MB 17, 883, troponin 0.071. ProBNP was 1,453. Albumin 3.1, plasma lactate 0.9. Urine cloudy, trace protein, 4+ blood, negative for nitrates, 4+ bacteria. Occult stool negative. Flu A and B negative. ASSESSMENT AND PLAN: 1. Chronic obstructive pulmonary disease exacerbation. We will continue with bronchodilators, IV antibiotics, steroids, aggressive pulmonary toilet with incentive spirometer, turn, cough, deep breathe. 2. Left lower extremity cellulitis. We will continue with IV antibiotics. 3. Cervical spine and back pain. We will check plain films of the cervical, thoracic, and lumbar spine. Continue with home pain regimen. The patient does have history of fibromyalgia. 4. Fibromyalgia. See above. 5. Elevated D-dimer. Venous Doppler has been negative. We will do a CTA of the chest to rule out PE. We will treat according to those results. 6. Clinical dehydration. Will continue with low-dose IV fluids. 7. Asymptomatic UTI. The patient is currently being treated with vancomycin and Levaquin. We will continue with those same antibiotics; however, patient again is asymptomatic. We will check urine culture. 8. Anemia. We will continue to monitor her hemoglobin and hematocrit. Continue her Icar C. There is no evidence of any active bleeding. 9. Gastroesophageal reflux disease. Continue PPI. 10. Constipation. Put the patient on a bowel regimen. 11. Morbid obesity. We will continue with healthy heart diet. 12. Hypertension. The patient is not on any antihypertensives at home. We will continue to monitor and order p.r.n.'s as necessary. 13. Further recommendations to follow physician evaluation, laboratory and diagnostic data. Dictated by SAMUEL Mack for Geoffrey Bolaños MD cc: MD Rebecca Varela MD MTDD
[2018-11-16] MEDS ORDERED: DULCOLAX PR ONE (15:24)
[2018-11-16] MEDS: DUONEB (A & A) INH SCH ×3 (15:40→23:11)
--- NOTE | 2018-11-16 16:08 | Diag Imaging Result Doc PS360 ---
EXAM: CERVICAL SPINE 2-VIEWS HISTORY: neck pain TECHNIQUE: Two views COMPARISON: None. FINDINGS: No abnormalities are appreciated in the AP projection. The lateral position on the bed is suboptimal for evaluation. There does not appear to be anterior subluxation. Moderate osteoarthritis. IMPRESSION: Markedly limited evaluation due to patient lying lateral on the bed. Consider follow-up dedicated complete C-spine series or CT for further evaluation. Electronically signed by Monica Grady 11/16/2018 4:06 PM
--- NOTE | 2018-11-16 16:10 | Diag Imaging Result Doc PS360 ---
EXAM: THORACIC SPINE HISTORY: back pain TECHNIQUE: Two views COMPARISON: None. FINDINGS: There is a moderate gliosis. Moderate degenerative disc disease. Marked osteophyte formation. No compression deformity or paraspinal widening. IMPRESSION: Scoliosis and thoracic spondylosis. Electronically signed by Monica Grady 11/16/2018 4:07 PM
--- NOTE | 2018-11-16 16:12 | Diag Imaging Result Doc PS360 ---
EXAM: LUMBAR SPINE 2-VIEWS HISTORY: back pain TECHNIQUE: Two views COMPARISON: None. FINDINGS: There is multilevel degenerative disc disease with rotoscoliosis, numerous osteophytes, and grade 1 spondylolisthesis of L5 on S1. Moderate osteoarthritis about the joints is noted. There is significant constipation. IMPRESSION: 1.Osteoarthritis and degenerative disc disease. Grade 1 spondylolisthesis of L5 on S1. 2.Constipation. Electronically signed by Monica Grady 11/16/2018 4:10 PM
[2018-11-16] MEDS: NEURONTIN PO SCH ×2 (17:16→17:26)
[2018-11-16] MEDS: SAVELLA PO SCH ×2 (17:17→17:25)
[2018-11-16] MEDS: NS 1,000 ML IV SCH (17:17)
[2018-11-16] MEDS: HEPARIN SUBQ SCH ×2 (17:23→20:57)
[2018-11-16] MEDS: SYMBICORT 160/4.5 MICROGM INHALER INH SCH (19:22)
--- NOTE | 2018-11-16 20:50 | HISTORY AND PHYSICAL ---
HISTORY AND PHYSICAL ADDENDUM: CHIEF COMPLAINT: Shortness of breath. HISTORY OF PRESENT ILLNESS: This is a 77-year-old female with history of COPD who came in. She has very frequent falls. She has severe pain in her neck, but her main issues this evaluation in the ER were wheezing and shortness of breath. She was found to have a COPD exacerbation and admitted. She does have some pneumonia and she has an enlarging pulmonary nodule that will need followup. Her pulmonary exam, I have listened to her right after breathing treatment and there was no wheezing. She seemed to be fairly well controlled. We will continue breathing treatments, steroids, antibiotics and follow clinically. This is a [id number] encounter note with Fani Arellano. We will continue to follow closely. cc: Geoffrey Bolaños MD
[2018-11-16] MEDS: SOLU-MEDROL IV SCH (20:56)
[2018-11-16] MEDS: SEROQUEL PO SCH (20:57)
[2018-11-16] MEDS: TUMS PO SCH (20:58)
[2018-11-16] MEDS: VITAMIN D PO SCH (20:58)
[2018-11-16] MEDS: TOPAMAX PO SCH (20:58)
[2018-11-16] MEDS: TYLENOL PO PRN (21:01)
[2018-11-17] MEDS: DUONEB (A & A) INH SCH ×6 (03:21→22:46)
[2018-11-17] MEDS: SOLU-MEDROL IV SCH ×3 (04:19→20:16)
[2018-11-17] MEDS: PRILOSEC PO SCH (06:11)
--- NOTE | 2018-11-17 07:24 | Diag Imaging Result Doc PS360 ---
EXAM: CHEST-PORTABLE - 11/17/2018 HISTORY: short of breath TECHNIQUE: Portable chest COMPARISON: 11/16/2018 FINDINGS: Heart size appears mildly enlarged. Possible mild basilar scarring similar to prior. There are no other acute changes identified. There is no substantial thorax identified. IMPRESSION: Mild cardiomegaly. No other acute changes. Electronically signed by Eliud Farmer 11/17/2018 7:22 AM
[2018-11-17 07:43] LABS: HEMATOCRIT 25.4 % (37.0-47.0); HEMOGLOBIN 7.8 g/dL (12.0-16.0); IMM GRAN# 0.02 X1000 (0.0-0.04); IMM GRAN% 0.2 % (0.0-0.5); LYMPH# 0.54 X1000 (1.2-3.4); LYMPH% 4.8 % (20.5-51.1); MCH 27.6 PG (27-31); MCHC 30.7 g/dL (33-37); MCV 89.8 FL (81-99); MONO# 0.12 X1000 (0.11-0.59); MONO% 1.1 % (1.7-9.3); MPV 10.8 FL (7.4-10.4); NEUT# 10.53 X1000 (1.4-6.5); NEUT% 93.9 % (42.2-75.2); PLT 356 X1000 (130-400); RBC 2.83 XMIL (4.2-5.4); RDW 15.8 % (11.5-14.5); WBC 11.21 X1000 (4.8-10.8)
[2018-11-17 08:06] LABS: AGAP 9; ALBUMIN 2.6 g/dL (3.5-5.0); ALKALINE PHOSPHATASE 156 U/L (32-104); BUN 12 mg/dL (8-22); CALCIUM 8.2 mg/dL (8.8-10.2); CHLORIDE 107 mmol/L (98-107); COSMO 288; CREATININE 0.7 mg/dL (0.5-0.9); ESTIMATED GFR > 60; GLUCOSE 190 mg/dL (70-104); GOT 25 U/L (10-30); GPT 17 U/L (10-36); POTASSIUM 3.6 mmol/L (3.5-5.1); SODIUM 142 mmol/L (136-145); TCO2 26 mmol/L (25-35); TOTAL PROTEIN 6.5 g/dL (6.3-8.3)
[2018-11-17 08:11] LABS: LYMPHS 5 % (21-51); MONO 1 % (1-9); SEGS 94 % (42-75)
[2018-11-17] MEDS: SYMBICORT 160/4.5 MICROGM INHALER INH SCH ×2 (08:11→19:41)
[2018-11-17 08:12] LABS: ANISOCYTOSIS 2+; MICROCYTOSIS OCCASIONAL; POLYCHROM OCCASIONAL; TARGET CELLS OCCASIONAL
[2018-11-17] MEDS: NEURONTIN PO SCH ×3 (09:53→18:19)
[2018-11-17] MEDS: TUMS PO SCH ×2 (09:53→20:17)
[2018-11-17] MEDS: ICAR-C PO SCH (09:53)
[2018-11-17] MEDS: NS 1,000 ML IV SCH (09:53)
[2018-11-17] MEDS: ZYLOPRIM PO SCH (09:53)
[2018-11-17] MEDS: SAVELLA PO SCH ×3 (09:53→18:20)
[2018-11-17] MEDS: IMDUR PO SCH (09:53)
[2018-11-17] MEDS: VITAMIN D PO SCH ×2 (09:54→20:17)
[2018-11-17] MEDS: ASPIRIN PO SCH (09:54)
[2018-11-17] MEDS: MIRALAX PO SCH (09:54)
[2018-11-17] MEDS: VICON-C PO SCH (09:54)
[2018-11-17] MEDS: TOPAMAX PO SCH ×2 (09:54→20:17)
[2018-11-17] MEDS: HEPARIN SUBQ SCH ×2 (09:55→20:16)
[2018-11-17] MEDS ORDERED: NS 1,000 ML IV SCH (10:06)
[2018-11-17] MEDS: LEVAQUIN 500 MG/D5W 500 MG/100 ML IVPB IV SCH (10:25)
--- NOTE | 2018-11-17 12:37 | ECHO REPORT ---
ORDER DATE: 11/16/2018 INTERPRETING PHYSICIAN: Dr. Inderjit Sears ECHOCARDIOGRAPHIC MEASUREMENTS: Interventricular septum: 1.2 cm. Left ventricular posterior wall: 1.2 cm. Diastolic diameter: 5.3 cm. Left atrium: 3.6 cm. Aorta: 3.3 cm. SUMMARY OF THE 2-DIMENSIONAL IMAGIN. Aortic valve leaflets are trileaflet, calcified. Pulmonic valve was normal. Tricuspid valve was normal. Mitral valve was normal. There is mitral annular calcification. 2. There is left atrial enlargement. 3. Normal left ventricular cavity size with estimated ejection fraction of 60%. 4. There is mild tricuspid regurgitation. Peak velocity across the tricuspid valve was 3.4 m/sec. Pulmonary artery systolic pressure of 56 mmHg. 5. There is mild mitral regurgitation. 6. Peak velocity across the aortic valve was 4.1 m/sec with a maximum gradient of 67 mmHg, mean gradient of 39 mmHg. Aortic valve area by VTI was 1 sq cm. There is severe aortic stenosis. There is trace aortic regurgitation. There is no pericardial effusion or obvious intracardiac mass or thrombus seen. cc: Inderjit Sears MD [facility]
[2018-11-17] MEDS ORDERED: VANCOMYCIN IV PER PHARMACY MISC SCH (13:45)
--- NOTE | 2018-11-17 14:49 | Diag Imaging Result Doc PS360 ---
EXAM: CT CERVICAL SPINE W/O CONTRAST - 11/17/2018 HISTORY: fall, cspine pain TECHNIQUE: CT cervical spine without contrast COMPARISON: None. FINDINGS: There is substantial multilevel degenerative disease with multilevel spinal stenosis and neural foraminal stenosis. There is no fracture, subluxation, or precervical soft tissue swelling identified. There are atherosclerotic calcifications noted at the bilateral carotid bulb regions. IMPRESSION: Substantial multilevel degenerative disease with multilevel spinal stenosis and neural foraminal stenosis. No evidence of fracture or subluxation. This exam was performed using automated exposure control, adjustment of mA or kV according to patient size, and/or use of iterative reconstruction technique. Electronically signed by Eliud Farmer 11/17/2018 2:47 PM
[2018-11-17] MEDS: TYLENOL PO PRN (16:38)
--- NOTE | 2018-11-17 19:08 | PROGRESS NOTE ---
DATE: 11/17/2018 SUBJECTIVE: Patient has no major complaints. OBJECTIVE: Vital signs: Blood pressure 140/61, heart rate 62, respiratory rate 18, temperature 98 degrees, 97% on 4 L. Cardiovascular: Regular rate and rhythm. Pulmonary: Bilateral breath sounds clear to auscultation. Gastrointestinal: Soft, nontender, nondistended. Bowel sounds were positive. LABORATORY DATA: Her white count 11, hemoglobin 7.8 and 25, platelets of 356,000. Basic was normal. PROBLEM LIST: 1. Acute chronic obstructive pulmonary disease exacerbation with possible pneumonia. She is on breathing treatments, steroids. I am not going to wean anything because she is still wheezing. 2. Cellulitis. She is on IV antibiotics. Actually, she has been placed on vancomycin, but her blood cultures have now grown positive so not sure where that is coming from. 3. Anemia. She has had a progression in her anemia. She is known iron deficient because it looks like she is on that. Her hemoglobin and hematocrit have dropped, may be delusional. We will continue to follow. DISPOSITION: 1. Pending clinical status but she is still very weak. I anticipate she will probably be here another several days till her bronchospasm gets improved. 2. Cervical spine back pain. No acute fracture. She definitely has some foraminal stenosis. We will continue to follow. 3. Asymptomatic bacteriuria. Urine cultures: No growth. We are not actively treating that at this point. cc: Geoffrey Bolaños MD
[2018-11-17] MEDS: SEROQUEL PO SCH (20:16)
[2018-11-17] MEDS: VANCOMYCIN 1,500 MG in NS 250 ML IV SCH (22:32)
[2018-11-18] MEDS: DUONEB (A & A) INH SCH ×6 (04:01→22:58)
[2018-11-18] MEDS: PRILOSEC PO SCH (06:18)
[2018-11-18] MEDS: SOLU-MEDROL IV SCH ×2 (06:20→16:30)
[2018-11-18] MEDS: SYMBICORT 160/4.5 MICROGM INHALER INH SCH ×2 (07:35→19:49)
[2018-11-18 07:45] LABS: AGAP 7; BUN 19 mg/dL (8-22); CALCIUM 8.1 mg/dL (8.8-10.2); CHLORIDE 110 mmol/L (98-107); COSMO 292; CREATININE 0.6 mg/dL (0.5-0.9); ESTIMATED GFR > 60; GLUCOSE 155 mg/dL (70-104); SODIUM 144 mmol/L (136-145); TCO2 27 mmol/L (25-35)
[2018-11-18 07:56] LABS: HEMOGLOBIN 7.3 g/dL (12.0-16.0)
[2018-11-18 09:07] LABS: LYMPHS 6 % (21-51); MONO 2 % (1-9); SEGS 92 % (42-75)
[2018-11-18] MEDS: ASPIRIN PO SCH (09:28)
[2018-11-18] MEDS: ICAR-C PO SCH (09:29)
[2018-11-18] MEDS: NEURONTIN PO SCH ×3 (09:29→16:29)
[2018-11-18] MEDS: IMDUR PO SCH (09:29)
[2018-11-18] MEDS: MIRALAX PO SCH (09:29)
[2018-11-18] MEDS: TUMS PO SCH ×2 (09:30→20:41)
[2018-11-18] MEDS: SAVELLA PO SCH ×3 (09:30→16:30)
[2018-11-18] MEDS: TOPAMAX PO SCH ×2 (09:30→20:41)
[2018-11-18] MEDS: VICON-C PO SCH (09:31)
[2018-11-18] MEDS: VITAMIN D PO SCH ×2 (09:31→20:41)
[2018-11-18] MEDS: ZYLOPRIM PO SCH (09:31)
[2018-11-18] MEDS: HEPARIN SUBQ SCH ×2 (09:33→20:41)
[2018-11-18] MEDS: LEVAQUIN 500 MG/D5W 500 MG/100 ML IVPB IV SCH (11:12)
--- NOTE | 2018-11-18 13:47 | EKG Report ---
Test Performed on : 11/18/2018 1:35:18 PM Test Reason : ASSESS RHYTHM Blood Pressure : / mmHG Vent. Rate : 107 BPM Atrial Rate : 107 BPM P-R Int : 128 ms QRS Dur : 154 ms QT Int : 374 ms P-R-T Axes : 045 036 027 degrees QTc Int : 499 ms Sinus tachycardia. with frequent premature ventricular complexes. Possible Left atrial enlargement Right bundle branch block Abnormal ECG When compared with ECG of 16-NOV-2018 10:07, (Unconfirmed) No significant change was found Confirmed by Ivan Melchor MD ([id number]) on 11/22/2018 11:14:00 AM
--- NOTE | 2018-11-18 15:38 | PROGRESS NOTE ---
DATE: 11/18/2018 SUBJECTIVE: Patient is doing well. She is just a very optimistic person. She feels like she is breathing better. She is very excited because her daughter is in town her youngest daughter. OBJECTIVE: Blood pressure 114/68, heart rate 92, respiratory rate 20, and temperature 98.2 degrees.Cardiovascular: Regular rate and rhythm. Pulmonary: Bilateral breath sounds. Clear to auscultation. Still some wheezing, but overall improved. GI: Soft, nontender, and nondistended. Bowel sounds are positive. LABORATORY DATA: Her white count is still up at 20,000. She has been on steroids. Her hemoglobin and hematocrit has dropped to 7 and 24, platelets of 343,000. Her calcium 8.1. Her cultures are still gram-positive cocci and 2 blood cultures, and now a urine culture. She has had Stenotrophomonas in her sputum before and strep pneumo in 2012 PROBLEM LIST: 1. Acute chronic obstructive pulmonary disease exacerbation. She is on breathing treatments. I am going to wean her steroids a little bit just because she is still having some issues. Her breathing has improved, and I am not sure if this leukocytosis is related to her steroids or not. 2. Gram-positive cocci bacteremia. We will continue empiric antibiotics and follow. We still do not have final identification which would suggest that this is an unusual organism, hopefully not MRSA, but she is on vancomycin in any case and has been since admission. 3. Anemia. She has iron deficiency anemia it looks like, but it has progressed with her relative levels of hypoxemia. I went ahead and ordered a unit of blood, and we will monitor. DISPOSITION: We will continue to follow closely. She may need rehab or outpatient rehab services. We are going to continue to monitor. I think we can start working more aggressively with PT tomorrow. cc: Geoffrey Bolaños MD
[2018-11-18 15:59] LABS: RETIC% 2.01 % (0.8-2.1); RETIC-HE 25.3 PG (28.2-36.6)
[2018-11-18 16:03] LABS: IRON SATURATION 8 %; TIBC 202 ug/dL; TOTAL IRON 17 ug/dL (49-151); UNBOUND IRON 185 ug/dL (112-346)
[2018-11-18 16:18] LABS: BASO# 0.01 X1000 (0.0-0.2); EOS# 0.09 X1000 (0.0-0.7); EOS% 0.4 % (0.0-10.0); HEMATOCRIT 24.7 % (37.0-47.0); IMM GRAN# 0.08 X1000 (0.0-0.04); IMM GRAN% 0.4 % (0.0-0.5); LYMPH# 0.87 X1000 (1.2-3.4); MCH 27.4 PG (27-31); MCHC 29.6 g/dL (33-37); MCV 92.9 FL (81-99); MONO# 0.43 X1000 (0.11-0.59); MPV 11.1 FL (7.4-10.4); NEUT# 20.39 X1000 (1.4-6.5); NEUT% 93.2 % (42.2-75.2); PLT 346 X1000 (130-400); RBC 2.66 XMIL (4.2-5.4); RDW 16.4 % (11.5-14.5); WBC 21.87 X1000 (4.8-10.8)
[2018-11-18] MEDS: SEROQUEL PO SCH (20:42)
[2018-11-18 22:43] LABS: FERRITIN 60 ng/mL (13-150)
[2018-11-19] MEDS: SOLU-MEDROL IV SCH ×3 (00:01→16:23)
[2018-11-19] MEDS: DUONEB (A & A) INH SCH ×6 (04:27→22:31)
[2018-11-19] MEDS: VANCOMYCIN 1,500 MG in NS 250 ML IV SCH (04:37)
[2018-11-19] MEDS: PRILOSEC PO SCH ×2 (06:08→09:01)
[2018-11-19 07:18] LABS: BASO# 0.01 X1000 (0.0-0.2); BASO% 0.1 % (0.0-0.8); HEMATOCRIT 29.2 % (37.0-47.0); HEMOGLOBIN 8.9 g/dL (12.0-16.0); IMM GRAN# 0.15 X1000 (0.0-0.04); IMM GRAN% 0.8 % (0.0-0.5); LYMPH# 0.85 X1000 (1.2-3.4); LYMPH% 4.7 % (20.5-51.1); MCH 27.5 PG (27-31); MCHC 30.5 g/dL (33-37); MCV 90.1 FL (81-99); MONO# 0.31 X1000 (0.11-0.59); MONO% 1.7 % (1.7-9.3); MPV 10.4 FL (7.4-10.4); NEUT# 16.85 X1000 (1.4-6.5); NEUT% 92.7 % (42.2-75.2); PLT 352 X1000 (130-400); RBC 3.24 XMIL (4.2-5.4); RDW 16.5 % (11.5-14.5); WBC 18.17 X1000 (4.8-10.8)
[2018-11-19] MEDS: SYMBICORT 160/4.5 MICROGM INHALER INH SCH ×2 (07:52→19:08)
[2018-11-19 08:12] LABS: AGAP 10; BUN 23 mg/dL (8-22); CALCIUM 8.5 mg/dL (8.8-10.2); CHLORIDE 109 mmol/L (98-107); COSMO 289; CREATININE 0.8 mg/dL (0.5-0.9); ESTIMATED GFR > 60; GLUCOSE 143 mg/dL (70-104); POTASSIUM 4.2 mmol/L (3.5-5.1); SODIUM 142 mmol/L (136-145); TCO2 24 mmol/L (25-35)
[2018-11-19] MEDS: ICAR-C PO SCH (08:35)
[2018-11-19] MEDS: VICON-C PO SCH (08:35)
[2018-11-19] MEDS: IMDUR PO SCH (08:36)
[2018-11-19] MEDS: VITAMIN D PO SCH ×2 (08:37→22:16)
[2018-11-19] MEDS: SAVELLA PO SCH ×3 (08:37→22:27)
[2018-11-19] MEDS: ZYLOPRIM PO SCH (08:38)
[2018-11-19] MEDS: ASPIRIN PO SCH (08:38)
[2018-11-19] MEDS: NEURONTIN PO SCH ×3 (08:39→22:15)
[2018-11-19] MEDS: TOPAMAX PO SCH ×2 (08:39→22:16)
[2018-11-19] MEDS: MIRALAX PO SCH (08:40)
[2018-11-19] MEDS: TUMS PO SCH ×2 (08:40→22:15)
[2018-11-19] MEDS: HEPARIN SUBQ SCH ×2 (08:42→22:14)
[2018-11-19 09:34] LABS: ANISOCYTOSIS 1+; LYMPHS 3 % (21-51); MONO 3 % (1-9); SEGS 94 % (42-75)
[2018-11-19] MEDS: CUBICIN 600 MG in NS 100 ML IV SCH (10:14)
[2018-11-19] MEDS: LEVAQUIN 500 MG/D5W 500 MG/100 ML IVPB IV SCH (10:18)
--- NOTE | 2018-11-19 19:13 | PROGRESS NOTE ---
DATE: 11/19/2018 SUBJECTIVE: Patient has no major complaints. She is sitting up in bed. OBJECTIVE: Vital signs: Blood pressure 137/72, heart rate 107, respiratory rate of 20, temperature 98.1 degrees, 99% on 3 L. Cardiovascular: Regular rate and rhythm. Pulmonary: Bilateral breath sounds. Clear to auscultation. Gastrointestinal: Soft, nontender, nondistended. Bowel sounds are positive. Extremities: No clubbing or cyanosis. Lymphatic exam: No peripheral edema. Neurological exam: Nonfocal. LABORATORY DATA: Her hemoglobin and hematocrit has climbed to 8.9 and 29. White count of 18, glucose 352. AST and ALT are better. She has Enterococcus faecium in her urine and one positive blood culture. The urinary one is sensitive to vancomycin, but the blood culture is resistant to everything so it is a vancomycin-resistant enterococci. PROBLEM LIST: 1. Enterococcus urinary tract infection and bacteremia. We will continue daptomycin. I have discussed the case with Dr. Galarza. Recommended Zyvox or daptomycin. We will do daptomycin since she is bacteremic. 2. Acute chronic obstructive pulmonary disease exacerbation is improving. I am going to wean her steroids a bit, and we will continue to follow. 3. Anemia likely of chronic inflammation. She seems to be stable and improved since her supplementation. DISPOSITION: Pending her clinical status. I think we will need to get some blood cultures and decide about a PICC line, but I do not know if she can get a PICC line get if she has not had treatment so I do not know. We will get a blood culture tomorrow and see if it has been cleared. She refuses any form of inpatient rehab. She has family members who will take care of her at home so the plan will be home IV therapy, and we are working on setting that up. She does need a PICC line but will have to have sterile blood cultures first, and unfortunately, we have not been adequately treating her because of resistance of the Enterococcus so we will continue to follow. cc: Geoffrey Bolaños MD
[2018-11-19] MEDS: SEROQUEL PO SCH (22:15)
[2018-11-20] MEDS: DUONEB (A & A) INH SCH ×6 (03:09→23:07)
[2018-11-20] MEDS: SOLU-MEDROL IV SCH ×2 (04:57→17:09)
[2018-11-20] MEDS: PRILOSEC PO SCH (06:16)
[2018-11-20 07:44] LABS: HEMATOCRIT 28.7 % (37.0-47.0); HEMOGLOBIN 8.9 g/dL (12.0-16.0); MCH 27.7 PG (27-31); MCV 89.4 FL (81-99); MPV 10.9 FL (7.4-10.4); RBC 3.21 XMIL (4.2-5.4); RDW 16.1 % (11.5-14.5); WBC 14.32 X1000 (4.8-10.8)
[2018-11-20 07:49] LABS: AGAP 8; BUN 25 mg/dL (8-22); CALCIUM 8.4 mg/dL (8.8-10.2); CHLORIDE 107 mmol/L (98-107); COSMO 289; CREATININE 0.7 mg/dL (0.5-0.9); ESTIMATED GFR > 60; GLUCOSE 98 mg/dL (70-104); POTASSIUM 3.9 mmol/L (3.5-5.1); SODIUM 143 mmol/L (136-145); TCO2 28 mmol/L (25-35)
[2018-11-20] MEDS: SYMBICORT 160/4.5 MICROGM INHALER INH SCH ×2 (08:13→19:15)
[2018-11-20] MEDS: CUBICIN 600 MG in NS 100 ML IV SCH (09:28)
[2018-11-20] MEDS: SAVELLA PO SCH ×3 (09:29→17:08)
[2018-11-20] MEDS: TUMS PO SCH ×2 (09:29→20:30)
[2018-11-20] MEDS: ZYLOPRIM PO SCH (09:29)
[2018-11-20] MEDS: TOPAMAX PO SCH ×2 (09:29→20:30)
[2018-11-20] MEDS: IMDUR PO SCH (09:29)
[2018-11-20] MEDS: VITAMIN D PO SCH ×2 (09:29→20:30)
[2018-11-20] MEDS: HEPARIN SUBQ SCH ×2 (09:29→20:29)
[2018-11-20] MEDS: VICON-C PO SCH (09:29)
[2018-11-20] MEDS: ASPIRIN PO SCH (09:29)
[2018-11-20] MEDS: ICAR-C PO SCH (09:29)
[2018-11-20] MEDS: NEURONTIN PO SCH ×3 (09:29→17:08)
[2018-11-20] MEDS: MIRALAX PO SCH (09:30)
[2018-11-20] MEDS: LEVAQUIN 500 MG/D5W 500 MG/100 ML IVPB IV SCH (10:24)
--- NOTE | 2018-11-20 17:35 | PROGRESS NOTE ---
DATE: 11/20/2018 SUBJECTIVE: Patient has no major complaints except she wants to go home. I explained that she had a bacterial infection in her blood, and we would have to wait until that clears before we can place a PICC line. She is very adamant about going home, home health, no inpatient rehab. OBJECTIVE: Vital signs: Blood pressure is 139/82, heart rate of 94, respiratory rate 18, temperature 97.8 degrees 100% on 3 L. Cardiovascular: Regular rate and rhythm. Pulmonary: Bilateral breath sounds, clear to auscultation. Gastrointestinal: Soft, nontender, nondistended. Bowel sounds are positive. LABORATORY DATA: White count is 14, hemoglobin and hematocrit 8.9 and 28.7, platelets 341,000. Basic was normal. MICROBIOLOGY: We do have repeat blood cultures today okay. ASSESSMENT AND PLAN: 1. Enterococcus faecium urinary tract infection, which is a vancomycin-resistance Enterococcus, at least the bacteremia is. He is on daptomycin. Recommending 2 weeks of IV daptomycin per discussion with Dr. Galarza, and we will follow. 2. Chronic obstructive pulmonary disease exacerbation. I feel like she is improving. We will continue to wean steroids and monitor. 3. Neuropathy. She seems to be doing okay from that standpoint. DISPOSITION: I think she is probably close to being able to get out here just waiting on her overall stabilization. I think we have looked at home IV antibiotics, and we will continue to follow. cc: Geoffrey Bolaños MD
[2018-11-20] MEDS: SEROQUEL PO SCH (20:29)
[2018-11-21] MEDS: DUONEB (A & A) INH SCH ×6 (03:08→23:40)
[2018-11-21] MEDS: TYLENOL PO PRN (03:22)
[2018-11-21] MEDS: PRILOSEC PO SCH (06:10)
[2018-11-21] MEDS: SYMBICORT 160/4.5 MICROGM INHALER INH SCH ×2 (07:27→19:17)
[2018-11-21 07:58] LABS: HEMATOCRIT 27.6 % (37.0-47.0); HEMOGLOBIN 8.6 g/dL (12.0-16.0); MCH 27.8 PG (27-31); MCHC 31.2 g/dL (33-37); MCV 89.3 FL (81-99); MPV 10.8 FL (7.4-10.4); RBC 3.09 XMIL (4.2-5.4); WBC 15.5 X1000 (4.8-10.8)
[2018-11-21 08:03] LABS: AGAP 6; BUN 27 mg/dL (8-22); CALCIUM 8.3 mg/dL (8.8-10.2); CHLORIDE 106 mmol/L (98-107); COSMO 287; CREATININE 0.6 mg/dL (0.5-0.9); ESTIMATED GFR > 60; GLUCOSE 101 mg/dL (70-104); POTASSIUM 3.8 mmol/L (3.5-5.1); SODIUM 141 mmol/L (136-145); TCO2 30 mmol/L (25-35)
[2018-11-21] MEDS: CUBICIN 600 MG in NS 100 ML IV SCH (09:11)
[2018-11-21] MEDS: ZYLOPRIM PO SCH (09:11)
[2018-11-21] MEDS: MIRALAX PO SCH (09:12)
[2018-11-21] MEDS: VITAMIN D PO SCH ×2 (09:12→21:31)
[2018-11-21] MEDS: NEURONTIN PO SCH ×3 (09:12→16:34)
[2018-11-21] MEDS: ICAR-C PO SCH (09:12)
[2018-11-21] MEDS: SOLU-MEDROL IV SCH (09:12)
[2018-11-21] MEDS: TOPAMAX PO SCH ×2 (09:12→21:31)
[2018-11-21] MEDS: ASPIRIN PO SCH (09:12)
[2018-11-21] MEDS: IMDUR PO SCH (09:12)
[2018-11-21] MEDS: HEPARIN SUBQ SCH ×2 (09:12→21:31)
[2018-11-21] MEDS: TUMS PO SCH ×2 (09:12→21:31)
[2018-11-21] MEDS: VICON-C PO SCH (09:14)
[2018-11-21] MEDS: SAVELLA PO SCH ×3 (09:14→16:35)
[2018-11-21] MEDS: LEVAQUIN 500 MG/D5W 500 MG/100 ML IVPB IV SCH (13:06)
[2018-11-21] MEDS: SEROQUEL PO SCH (21:31)
[2018-11-22] MEDS: DUONEB (A & A) INH SCH ×6 (03:27→23:22)
[2018-11-22] MEDS: PRILOSEC PO SCH (06:30)
[2018-11-22] MEDS: SYMBICORT 160/4.5 MICROGM INHALER INH SCH ×2 (08:25→19:31)
[2018-11-22 08:30] LABS: HEMATOCRIT 27.9 % (37.0-47.0); HEMOGLOBIN 8.6 g/dL (12.0-16.0); MCH 27.7 PG (27-31); MCHC 30.8 g/dL (33-37); MCV 89.7 FL (81-99); MPV 11.3 FL (7.4-10.4); RBC 3.11 XMIL (4.2-5.4); RDW 16.1 % (11.5-14.5); WBC 13.88 X1000 (4.8-10.8)
[2018-11-22] MEDS: MIRALAX PO SCH (09:26)
[2018-11-22] MEDS: IMDUR PO SCH (09:26)
[2018-11-22] MEDS: ICAR-C PO SCH (09:26)
[2018-11-22] MEDS: CUBICIN 600 MG in NS 100 ML IV SCH (09:26)
[2018-11-22] MEDS: TOPAMAX PO SCH ×2 (09:26→21:30)
[2018-11-22] MEDS: SAVELLA PO SCH ×3 (09:26→16:31)
[2018-11-22] MEDS: ASPIRIN PO SCH (09:26)
[2018-11-22] MEDS: NEURONTIN PO SCH ×3 (09:27→16:31)
[2018-11-22] MEDS: VITAMIN D PO SCH ×2 (09:27→21:30)
[2018-11-22] MEDS: SOLU-MEDROL IV SCH (09:27)
[2018-11-22] MEDS: HEPARIN SUBQ SCH ×2 (09:27→21:30)
[2018-11-22] MEDS: VICON-C PO SCH (09:27)
[2018-11-22] MEDS: TUMS PO SCH ×2 (09:27→21:30)
[2018-11-22] MEDS: ZYLOPRIM PO SCH (09:27)
[2018-11-22] MEDS: LEVAQUIN 500 MG/D5W 500 MG/100 ML IVPB IV SCH (10:17)
[2018-11-22 12:56] LABS: PROTIME 13.7 Seconds (11.0-16.0)
--- NOTE | 2018-11-22 15:54 | PROGRESS NOTE ---
DATE: 11/22/2018 SUBJECTIVE: Patient has no focal complaints. She is sitting up on her bedside commode. She is not working hard to breathe. OBJECTIVE: Blood pressure is 128/69, heart rate of 94, respiratory rate of 20, temperature 97.4. Afebrile. 98% on 2 L.Cardiovascular: Regular rate and rhythm. Pulmonary: Bilateral breath sounds. Clear to auscultation. Gastrointestinal: Soft, nontender, nondistended. Bowel sounds were positive. I do not appreciate wheezing today. Overall, she has improved. PROBLEM LIST: 1. Acute chronic obstructive pulmonary disease exacerbation. She is doing well. She is on low- dose steroids. I think she is stable for discharge from that standpoint. 2. Enterococcus faecium urinary tract infection and bacteremia, which is unfortunately vancomycin- resistant per Dr. Galarza. Daptomycin for 2 weeks will be sufficient. Echocardiogram was negative for vegetation within the limitations of transthoracic echo. 3. Disposition: We need to get a PICC line placed. We could not do it until her blood cultures were clear, which today will be 48 hours, and it will be unlikely we will get a PICC line today. But if she gets her PICC line established tomorrow, she should be able to go home tomorrow. cc: Geoffrey Bolaños MD
[2018-11-22] MEDS: SEROQUEL PO SCH (21:30)
[2018-11-23] MEDS: DUONEB (A & A) INH SCH ×4 (03:32→16:23)
[2018-11-23] MEDS: PRILOSEC PO SCH ×2 (05:49→06:18)
[2018-11-23] MEDS: SYMBICORT 160/4.5 MICROGM INHALER INH SCH (08:14)
[2018-11-23] MEDS ORDERED: LEVAQUIN PO SCH (09:00)
[2018-11-23] MEDS: ICAR-C PO SCH (09:34)
[2018-11-23] MEDS: TOPAMAX PO SCH (09:34)
[2018-11-23] MEDS: VICON-C PO SCH (09:34)
[2018-11-23] MEDS: NEURONTIN PO SCH ×2 (09:34→13:46)
[2018-11-23] MEDS: VITAMIN D PO SCH (09:34)
[2018-11-23] MEDS: IMDUR PO SCH (09:34)
[2018-11-23] MEDS: ASPIRIN PO SCH (09:34)
[2018-11-23] MEDS: CUBICIN 600 MG in NS 100 ML IV SCH (09:35)
[2018-11-23] MEDS: MIRALAX PO SCH (09:35)
[2018-11-23] MEDS: ZYLOPRIM PO SCH (09:35)
[2018-11-23] MEDS: TUMS PO SCH (09:35)
[2018-11-23] MEDS: SOLU-MEDROL IV SCH (09:35)
[2018-11-23] MEDS: SAVELLA PO SCH ×2 (09:35→13:46)
[2018-11-23] MEDS: HEPARIN SUBQ SCH (09:45)
[2018-11-23] MEDS ORDERED: NS 250 ML ONE (09:50)
--- NOTE | 2018-11-23 12:52 | Diag Imaging Result Doc PS360 ---
EXAM: CHEST-PORTABLE HISTORY: PICC placement TECHNIQUE: Chest single view COMPARISON: 11/17/2018 FINDINGS: A left-sided PICC line has been placed since the prior study. The tip overlies the mid superior vena cava. The lungs are well expanded. Mildly prominent heart similar to the prior exam. Mild increased markings in the lower right base similar to the prior study. No pleural effusions identified. IMPRESSION: Left PICC line with the tip overlying the mid superior vena cava. Electronically signed by Getachew Caro 11/23/2018 12:49 PM
[2018-11-23 16:23] VITALS: BP 137/87
--- NOTE | 2018-11-23 19:08 | DISCHARGE SUMMARY ---
ADMISSION DATE: 11/16/2018 DISCHARGE DATE: 11/23/2018 DIAGNOSES: 1. Chronic obstructive pulmonary disease exacerbation resolved. 2. Left lower extremity cellulitis. 3. Fibromyalgia. 4. Chronic C-spine and back pain. 5. Elevated D-dimer with a negative CTA pulmonary as well as no evidence of deep vein thrombosis in the left lower extremity. 6. Enterococcus faecium urinary tract infection and bacteremia with echocardiogram negative for vegetations within the limitations of transthoracic echocardiogram. DIAGNOSTICS: 1. 11/16/2018 chest x-ray revealed no pulmonary edema or definite pneumonia. 2. 11/16/2018 left lower extremity venous Doppler revealed no evidence for DVT. 3. Pulmonary arteriogram revealed no evidence for acute pulmonary embolism. Enlargement of noncalcified pulmonary nodule within the left upper lobe previously measured 5 mm, now measures 9 mm. Unchanged ground-glass and reticular infiltrates in the left upper lobe. 4. 11/16/2018 echocardiogram revealed EF of 60% with no pericardial effusion, obvious intracardiac mass or thrombus seen. 5. Cervical spine x-ray revealed markedly limited evaluation due to the patient lying lateral on the bed with no abnormalities appreciated in the AP projection. There does not appear to be anterior subluxation with moderate osteoarthritis. 6. CT of the cervical spine revealed substantial multilevel degenerative disease with multilevel spinal stenosis. 7. 11/23/2018 chest x-ray following PICC placement revealed left PICC line with the tip overlying the mid superior vena cava. 8. Microbiology. Blood cultures x2 revealed enterococcus faecium VRE. 9. Urine culture revealed enterococcus faecium. 10. Repeat blood cultures 11/20/2018 revealed no growth after 48 hours. HOSPITAL COURSE: Ms Orta presented to Emergency Room complaining of hurting all over with shortness of breath and wheezing. She was found to be in a COPD exacerbation which she was treated with bronchodilators, steroids and a pulmonary toilet with incentive spirometer as well as left lower extremity cellulitis. She was initially treated with vancomycin and Levaquin. Cultures returned VRE bacteremia. Antibiotics were changed to daptomycin for which she continues. A PICC line was placed today on November 23. She will receive daptomycin at home daily with last dose being 12/02/2018. She was noted to be constipated on admission. She was placed on a bowel regimen and has had a large bowel movement within the last 24 hours. As stated before she did have an elevated D-dimer with a venous Doppler to her left lower extremity being negative and CT of the chest revealing no evidence of pulmonary embolus. She was noted to have a pulmonary nodule in the medial left upper lobe that was previously 5 mm. It was 9 mm on her November 16 scan, Dr. Zimmerman is aware and his office will arrange followup. DISCHARGE MEDICATIONS: 1. DuoNeb q.6 hours p.r.n. 2. Allopurinol 100 mg p.o. daily. 3. Aspirin 81 mg p.o. daily. 4. Symbicort 160/4.5 two puffs b.i.d. 5. Tums 500 mg p.o. b.i.d. 6. Vitamin D3 1000 units p.o. b.i.d. 7. Lasix 20 mg p.o. q.a.m. p.r.n. as directed. 8. Gabapentin 600 mg p.o. t.i.d. 9. Combivent inhaler 1 puff as directed. 10. Icar-C 1 tablet p.o. daily. 11. Imdur 30 mg p.o. daily. 12. Savella 50 mg p.o. t.i.d. 13. Omeprazole 1 p.o. daily. 14. Potassium chloride 10 mEq p.o. daily when taking Lasix. 15. Seroquel 400 mg p.o. at bedtime. 16. Topamax 25 mg p.o. b.i.d. 17. Vitamin B complex 1 p.o. daily. FOLLOWUP: 1. Dr. Cade Zimmerman. His office will call and arrange followup appointment. 2. Dr. Dandre Galarza 12/01/[address] at [address] Crawford, her primary care physician. She needs to call to make an appointment to be seen. 4. She has been instructed to call to be seen sooner or return to the emergency room for any syncope dizziness chest pain, palpitations, any temperature greater than 101, increasing shortness of breath, PND, orthopnea, any nausea, vomiting, diarrhea, constipation, black or bloody vomitus or stools or for any questions or concerns that she may have. She is being discharged home in stable condition with family members. TIME SPENT: Greater than 30 minutes. Dictated by SAMUEL Fung for Inder Valdez MD cc: SAMUEL Fung MD
--- NOTE | 2018-11-24 08:24 | DISCHARGE SUMMARY ---
ADMISSION DATE: 11/16/2018 DISCHARGE DATE: 11/23/2018 ADDENDUM: Patient seen and examined by myself. Full note dictated and discussed with nurse practitioner. On discharge, patient is awake and alert. She is in no distress. She will be discharged home with daptomycin for 2 weeks. She will follow up with Dr. Galarza. cc: Inder Valdez MD
== END 2018-11-23 16:58 | disposition home health service (06) | DRG 191 ==
LOC: P.ED 09:59 → P.MEDSURG 13:12 → SUATTDRO 13:12 → P.MEDSURG 11-19 08:13
PROVIDERS: ATTEND Family Medicine
CPT/HCPCS: 36430; 36569; 51702; 71010; 71045; 71275; 72040; 72072; 72100; 72125; 80048; 80053; 81001; 82270; 82550; 82553; 82607; 82728; 82746; 82805; 83540; 83550; 83605; 83735; 83880; 84100; 84466; 84484; 85025; 85027; 85045; 85379; 85610; 86850; 86900; 86901; 86920; 87040; 87070; 87077; 87088; 87186; 87205; 87275; 87276; 87804; 93005; 93010; 93306; 93971; 94640; 94761; 96365; 96366; 96375; 97110; 97163; 97165; 97530; 99285; A9270; J0878; J1644; J1940; J1956; J2270; J2405; J2920; J2930; J3370; J7030; J7050; P9016; Q9967

== ENCOUNTER 2018-11-30 12:24 | Inpatient (IN) ==
[2018-11-30] MEDS ORDERED: DUONEB (A & A) INH ONE (13:09)
--- NOTE | 2018-11-30 13:19 | PROVIDER DOCUMENTATION ---
HPI-General Adult - General Chief Complaint: General Adult Stated Complaint: fall Time Seen by Provider: 11/30/18 13:10 Source: patient Allergies/Adverse Reactions: Patient Allergies Allergy/AdvReac Type Severity Reaction Status Date / Time aripiprazole [From Abilify] Allergy Intermediate NAUSEA Verified 11/30/18 13:10 tramadol HCl * [From Ultram] Allergy Intermediate SHORTNESS Verified 11/30/18 13:10 OF BREATH codeine Allergy Mild NAUSEA Verified 11/30/18 13:10 fluticasone propionate * Allergy Mild Unknown Verified 11/30/18 13:10 [From Advair Diskus] salmeterol xinafoate * Allergy Mild Unknown Verified 11/30/18 13:10 [From Advair Diskus] PARVIN Inhibitors AdvReac Intermediate ANAPHYLAXIS Verified 11/30/18 13:10 Penicillins AdvReac ANAPHYLAXIS Verified 11/30/18 13:10 Home Medications: Home Medication List Medication Instructions Recorded Confirmed Last Taken Type Allopurinol 100 mg PO DAILY 09/20/15 11/16/18 03/31/16 History Gabapentin 600 mg PO TID 09/20/15 11/16/18 03/31/16 History Milnacipran HCl [Savella] 50 mg PO TID 09/20/15 11/16/18 03/31/16 History Ipratropium/Albuterol INH 1 puff INH 4XDAY 11/30/15 11/16/18 03/31/16 History [Combivent Respimat Inhaler] Albuterol 2.5MG/Ipratrop 0.5MG 3 ml INH Q6H PRN PRN #0 neb 02/15/16 11/16/18 03/31/16 Rx [Duoneb (A & A)] Topiramate [Topamax] 25 mg PO BID #0 tablet 02/15/16 11/16/18 03/31/16 Rx Quetiapine Fumarate [Seroquel] 400 mg PO HS 03/17/16 11/16/18 03/31/16 History Budesonide/Formoterol Inhaler 2 puff INH RTBID #0 inhaler 03/19/16 11/16/18 03/31/16 Rx [Symbicort 160/4.5 Microgm Inhaler] Aspirin 81 mg PO DAILY 07/15/16 11/16/18 Unknown History Calcium Carbonate Chew [Tums] 500 mg PO BID 07/15/16 11/16/18 Unknown History Cholecalciferol (Vitamin D3) 1,000 unit PO BID 07/15/16 11/16/18 Unknown History [Vitamin D3] Furosemide 20 mg PO QAM PRN PRN 07/15/16 11/16/18 Unknown History Potassium Chloride 10 meq PO QAM PRN PRN 07/15/16 11/16/18 Unknown History Vitamin B Complex 1 each PO DAILY 07/15/16 11/16/18 Unknown History Isosorbide Mononitrate E.r. [Imdur] 30 mg PO DAILY #0 tablet 07/17/16 11/16/18 Unknown Rx Iron,Carbonyl/Ascorbic Acid [Fe C 1 tab PO DAILY 11/16/18 11/16/18 Unknown History Tablet] Omeprazole 1 cap PO QAM 11/16/18 11/16/18 Unknown History Daptomycin [Cubicin] 600 mg IV Q24H #9 vial 11/23/18 Unknown Rx Hydrocodone/APAP 5 mg/325 mg 1 ea PO Q6H PRN PRN #10 tab 11/28/18 Unknown Rx [[place]-5] - History of Present Illness -Gen Adult Nature of Presenting Problems: 77 YOF reports she has lynn to call EMS multiple times since d/c home from hospital, most recently for fall and low oxygen, she has been receiving IV abx at home for recent PNA Location of Pain/Injury: reports: none Pain Radiation: reports: no radiation Quality of Pain: reports: none Onset/Duration: reports: 24 hours ago Timing: reports: still present Context/Activities at Onset: reports: none Modifying Factors: improves with: nothing Associated Symptoms: reports: weakness, trouble walking Similar Symptoms Previously?: No Recently seen or treated by another doctor?: No Review of Systems - Adult - REVIEW OF SYSTEMS - ADULT Constitutional: reports: no symptoms reported Eyes: reports: no symptoms reported Ears, Nose, Mouth & Throat: reports: no symptoms reported Cardiovascular: reports: edema Respiratory: reports: chronic cough, cough, dyspnea on exertion, wheezing Gastrointestinal: reports: no symptoms reported Genitourinary: reports: no symptoms reported Musculoskeletal: reports: muscle weakness Integumentary: reports: no symptoms reported Neurological: reports: no symptoms reported Psychiatric: reports: no symptoms reported Endocrine: reports: no symptoms reported Hematologic/Lymphatic: reports: no symptoms reported Allergic/Immunologic: reports: no symptoms reported Past History - Adult - PAST MEDICAL HISTORY-ADULT Review of Records: reports: Nursing Assessment Review Major Childhood Illnesses: reports: denies history Cardiovascular: reports: CHF, HTN Respiratory: reports: asthma, COPD, sleep apnea, other (orthopnea) Gastrointestinal: reports: GERD Obstetrical/Gynecological: reports: denies history Genitourinary: reports: other (renal disease) Musculoskeletal: reports: denies history Neurological: reports: TIA Psychiatric: reports: depression Endocrine/Immune: reports: thyroid disorder Other Conditions: reports: denies history - PRIOR SURGERIES/PROCEDURES Surgical/Procedure History: reports: appendectomy (right BKA, thyroid, mastoid sx), hysterectomy, other (Right BKA) - PRIOR HOSPITALIZATIONS Prior Hospitalizations: reports: for similar symptoms - IMMUNIZATION STATUS Childhood Immunizations: See Nurse Assessment Flu Vaccine: See Nurse Assessment - FAMILY HISTORY Family History: reviewed, not pertinent Physical Exam-General - PHYSICAL EXAM-ADULT Initial Vital Signs Reviewed: Yes - CONSTITUTIONAL General Appearance: appears well, alert, no apparent distress - EYES Eyes: PERRL/EOMI, pink conjunctivae - HEAD, EARS, NOSE, MOUTH & THROAT HENMT: normocephalic/atraumatic, moist mucous membranes, normal ENT inspection - NECK Neck: non-tender, full range of motion - RESPIRATORY Respiratory: chest non-tender, crackles, wheezing - CARDIOVASCULAR Cardiovascular: negative: no edema - GASTROINTESTINAL (ABDOMEN) Abdominal Exam: normal bowel sounds, non tender - LYMPHATIC Lymphatic: no adenopathy - MUSCULOSKELETAL Back Exam: normal inspection Extremity: normal range of motion, non-tender. negative: no pedal edema - NEUROLOGIC Neurologic: grossly normal - PSYCHIATRIC Psych/Mental Status: normal mood/affect, normal thought content, oriented x 3 Progress - PLAN OF CARE/RESULTS Progress/Plan/Lab Results: Vital Signs - 8 hr 11/30/18 12:57 Temperature 97.8 F Pulse Rate 97 H Respiratory Rate 20 Blood Pressure 165/113 O2 Sat by Pulse Oximetry 100 Orders Category Date Time Status Cardiac Monitoring DIRECTED Care 11/30/18 13:09 Ordered Nursing- Obtain EKG ONCE Care 11/30/18 13:09 Ordered Oxygen Saturation ORDERED Care 11/30/18 13:09 Ordered Saline Loc NOW Care 11/30/18 13:07 Ordered CHEST-1 VIEW [RAD] Stat Exams 11/30/18 13:09 Ordered BLOOD CULTURE [BLDCUL] Stat Lab 11/30/18 13:09 Uncollected CBC WITH ELECTRONIC DIFF [HEME] Stat Lab 11/30/18 13:07 Uncollected COMPREHENSIVE METABOLIC PANEL [CHEM] Stat Lab 11/30/18 13:07 Uncollected LACTATE, PLASMA [CHEM] Stat Lab 11/30/18 13:09 Uncollected TROPONIN T Stat Lab 11/30/18 13:09 Uncollected Albuterol 2.5MG/Ipratrop 0.5MG [Duoneb (A & A)] Med 11/30/18 13:09 Once 3 ml INH NOW ONE Aerosol Treatments Routine Oth 11/30/18 13:11 Ordered Aerosol Treatments Stat Oth 11/30/18 13:11 Ordered Oxygen Device Stat Oth 11/30/18 13:09 Ordered EKG [EKG] Stat Ther 11/30/18 13:07 Ordered Result Diagrams: 11/30/18 13:40 11/30/18 13:40 - REASSESSMENT Reassessment #1 Time Reassessed: 14:56 (Cardiology Paged) Status: improving Reassessment #2 Time Reassessed: 15:32 (Dr. Calvo Repaged) Reassessment Comment: Patient denies CP at home and currently Reassessment #3 Time Reassessed: 16:22 (Dr. Calvo repaged) Status: unchanged Reassessment Comment: Spoke with Dr. Calvo, Recs serial trop and monitoring Reassessment #4 Time Reassessed: 16:55 (hospitalist paged) Status: unchanged Reassessment #5 Time Reassessed: 17:44 (Spoke w/ Dr. Jarrett) - EKG 1 Time of EKG reading by physician:: 13:40 EKG Read and Signed by:: Marco Antonio Cardoza EKG Interpretation (*Must complete 3 of following elements*): Abnormal (SR with RBB) Rate: 100 Rhythm: Sinus QRS: RBB SD Interval: normal ST Wave: normal - XRAY 1 XRAY Study: Chest Impression: Abnormal Comparison with other Films: changes noted XRAY Interpretation: Pulmonary edema. Departure - Departure Date of Disposition Decision: 11/30/18 Time of Disposition Decision: 17:45 DIAGNOSIS: Acute exacerbation of CHF (congestive heart failure), Elevated troponin, Shortness of breath Disposition: ADMITTED INPATIENT 09 Certified Medical Emergency: Emergent Condition: Fair Referrals and Follow-Ups: Rebecca Crawford MD [Primary Care Provider] - - Critical Care Note This patient required my direct & personal management of CC.: No Attestation - Physician/ JERILYN Attestation Patient care was provided by Advanced Practice Provider:: Yes Advanced Practice Provider documentation review:: The Mid-level provider documentation, treatment plan and medical decision making was reviewed by the physician who agrees with all treatment and medical decision making by the MLP. The physician spent face to face time with patient:: No Advanced Practice Provider documentation review:: Supervising physician onsite and consulted in the evaluation and care of this patient. The physician did not have a face to face encounter with the patient.
--- NOTE | 2018-11-30 13:34 | Diag Imaging Result Doc PS360 ---
EXAM: CHEST-1 VIEW 11/30/2018 HISTORY: SOB TECHNIQUE: AP portable at 1322 COMMENT: There is increased interstitial markings generally. Compared to 11/25/2018 the degree of atelectasis in the right base is improved otherwise the interstitial opacities are worse. IMPRESSION: Pulmonary edema. Electronically signed by Dick Neumann 11/30/2018 1:31 PM
[2018-11-30 14:12] LABS: AGAP 9; ALB/GLOB RATIO 1.1; ALBUMIN 3.2 g/dL (3.5-5.0); ALKALINE PHOSPHATASE 157 U/L (32-104); BUN 16 mg/dL (8-22); CALCIUM 8.8 mg/dL (8.8-10.2); CHLORIDE 104 mmol/L (98-107); COSMO 287; CREATININE 0.6 mg/dL (0.5-0.9); ESTIMATED GFR > 60; GLUCOSE 106 mg/dL (70-104); GOT 100 U/L (10-30); GPT 82 U/L (10-36); SODIUM 143 mmol/L (136-145); TCO2 30 mmol/L (25-35); TOTAL BILIRUBIN 0.31 mg/dL (0.20-1.00)
[2018-11-30] MEDS ORDERED: LASIX IV ONE (14:14)
[2018-11-30 14:17] LABS: BASO# 0.01 X1000 (0.0-0.2); BASO% 0.1 % (0.0-0.8); EOS# 0.15 X1000 (0.0-0.7); EOS% 1.2 % (0.0-10.0); HEMATOCRIT 32.2 % (37.0-47.0); HEMOGLOBIN 9.8 g/dL (12.0-16.0); IMM GRAN# 0.05 X1000 (0.0-0.04); IMM GRAN% 0.4 % (0.0-0.5); LYMPH# 0.78 X1000 (1.2-3.4); LYMPH% 6.4 % (20.5-51.1); MCH 27.8 PG (27-31); MCHC 30.4 g/dL (33-37); MCV 91.5 FL (81-99); MONO# 0.49 X1000 (0.11-0.59); MPV 10.8 FL (7.4-10.4); NEUT# 10.72 X1000 (1.4-6.5); NEUT% 87.9 % (42.2-75.2); PLT 247 X1000 (130-400); RBC 3.52 XMIL (4.2-5.4); RDW 18.5 % (11.5-14.5)
--- NOTE | 2018-11-30 14:33 | EKG Report ---
Test Performed on : 11/30/2018 1:40:44 PM Test Reason : SOB Blood Pressure : / mmHG Vent. Rate : 100 BPM Atrial Rate : 100 BPM P-R Int : 146 ms QRS Dur : 140 ms QT Int : 396 ms P-R-T Axes : 062 049 019 degrees QTc Int : 510 ms Sinus rhythm. with premature atrial complexes. with aberrant conduction. Right bundle branch block Abnormal ECG When compared with ECG of 18-NOV-2018 13:35, premature ventricular complexes. are no longer present aberrant conduction. is now present Unconfirmed Result
[2018-11-30 17:47] LABS: CK-MB 40.75 ng/mL (0.0-5.0)
[2018-11-30] MEDS: SYMBICORT 160/4.5 MICROGM INHALER INH SCH (19:30)
[2018-11-30] MEDS ORDERED: CUBICIN IV SCH (19:30)
[2018-11-30] MEDS ORDERED: DUONEB (A & A) INH PRN (19:31)
--- NOTE | 2018-11-30 20:54 | HISTORY AND PHYSICAL ---
CHIEF COMPLAINT: Shortness of breath, weakness. 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 She was recently discharged on 11/23/2018 due to COPD exacerbation, left lower extremity cellulitis, and Enterococcus faecium urinary tract infection. She was discharged with daptomycin, because also apparently her left lower extremity had an infection as well, cellulitis. She has a PICC line, and apparently she will complete treatment on 12/02/2018 and follow up with Infectious Disease Department. As per the patient, she has been having more shortness of breath. She tried to stand up today from her chair and go to the bedside commode, and she could not do it. She basically got stuck between the chair, so she called for help. In the emergency department, she was found to have pulmonary edema and elevated troponins at 0.175 and 0.178. As per the ER personnel, they called Cardiology Department to notify about this patient, and they suggested to keep the patient and keep monitoring the troponin level, so we will do it. Previous echocardiogram showed a normal ejection fraction, but increased pulmonary pressure. So likely, this patient has diastolic heart failure in the setting of COPD as well. This patient will be hospitalized in the CIC unit. We will monitor the troponins. We will repeat an EKG in the morning, telemetry. I will use IV Lasix 40 mg twice a day to start with. I will continue with her home medications as well. Cardiology and Infectious Disease Department will be consulted. PAST MEDICAL HISTORY: 1. COPD with chronic hypoxemic respiratory failure on home oxygen 4 L. 2. Morbid obesity. 3. Status post right [id number]-[id number] amputation due to chronic nonhealing ankle fracture 4 years ago. 4. Hypertension. 5. Hypothyroidism. 6. Dyslipidemia. 7. Fibromyalgia. 8. IBS. 9. Chronic anxiety. 10. GERD with recurrent aspiration. PAST SURGICAL HISTORY: 1. Right [id number] amputation secondary to nonhealing ankle fracture 4 years ago. 2. Left knee surgery. 3. Bronchoscopy performed in 2012. 4. Colonoscopy in 2015 that showed internal and external hemorrhoids. Repeat in October 2015. 5. Cystoscopic exam with bilateral retrograde ureteropyelogram performed by Dr. 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 SOCIAL HISTORY: The patient lives by herself in [place]. She uses a motorized chair. Prior tobacco use; she quit several years ago. No alcohol and no drugs. FAMILY HISTORY: Positive for coronary artery disease and diabetes. ALLERGIES: Abilify, Ultram, codeine, Advair Diskus, PARVIN inhibitors, and penicillin. MEDICATIONS: Recently, she was discharged on the following medications: 1. DuoNeb q.6 hours p.r.n. 2. Allopurinol 100 mg p.o. daily. 3. Aspirin 81 mg p.o. daily. 4. Symbicort 160/4.5 two puffs b.i.d. 5. Tums 5 mg p.o. b.i.d. 6. Vitamin D3, 1000 units p.o. b.i.d. 7. Lasix 20 mg p.o. q.a.m. as needed. 8. Gabapentin 600 mg p.o. t.i.d. 9. Combivent inhaler 1 puff as directed. 10. Icar-C one tablet p.o. daily. 11. Imdur 30 mg p.o. daily. 12. Savella 50 mg p.o. t.i.d. 13. Omeprazole 1 tablet p.o. daily. 14. Potassium chloride 10 mEq daily when using Lasix. 15. Seroquel 400 mg p.o. at bedtime. 16. Topamax 25 mg p.o. b.i.d. 17. Vitamin D complex 1 tablet p.o. daily. REVIEW OF SYSTEMS: She denies nausea, vomiting, diarrhea, constipation. She has some redness at the level of the left lower extremity, but as per the patient it is chronic. All the 14 points of review of systems were reviewed and all of them negative except as per HPI. PHYSICAL EXAMINATION: VITAL SIGNS: Temperature 98.7 degrees, pulse 103, respiratory rate 29, blood pressure 172/99, oxygen saturation 92 on 4 L of nasal cannula. HEENT: Head normocephalic. No trauma. PERRLA. NECK: Supple. She does have some JVD. Central trachea. CHEST: Decreased breath sounds globally with prolonged expiratory phase. Scattered wheezing and rales mostly at the bases. ABDOMEN: Soft, obese, protuberant. Nontender, nondistended. No hepatosplenomegaly. EXTREMITIES: Right nutrk-hqo-kqol amputation. Left lower extremity trace edema with some redness around her leg, but it is not warm or painful to palpation. It looks chronic. NEUROLOGICAL: The patient is completely alert and oriented x3. No focal deficits. LABORATORY: WBC 12.2, hemoglobin 9.8, hematocrit 32.2, platelets 247,000. Sodium 143, potassium 4, chloride 104, bicarbonate 30, BUN 16, creatinine 0.6, glucose 106, calcium 8.8, AST 100, ALT 82, alkaline phosphatase 157. CK 1027, CK-MB 40.75. Troponin 0.175 and 0.178. ProBNP 1043. Albumin 3.2. ASSESSMENT AND PLAN: 1. Likely diastolic heart failure exacerbation. I will put this patient on furosemide twice a day. Kidney function is normal. Her proBNP is elevated at 1043. Her troponins are elevated. We will repeat the echocardiogram, and we will follow the troponins. Cardiology department has been consulted. 2. Elevated troponins, as above. 3. Chronic obstructive pulmonary disease, probably with mild exacerbation. I will put her on breathing treatment. I will continue with oxygen supplementation, and I will continue with her daptomycin. 4. Left lower extremity cellulitis. She was admitted previously because of this condition. I think it s resolved, but she still has some redness, which as per the patient is chronic. 5. Enterococcus urinary tract infection. She was sent home with a PICC line and antibiotics which will be completed on 12/02/2018, and she is supposed to follow up with Infectious Disease Department, which has been consulted. 6. History of fibromyalgia, stable. 7. Anemia. We will monitor her hemoglobin and hematocrit. 8. Gastroesophageal reflux disease. Continue with PPI. 9. History of constipation. Aware. As per the patient, she is not constipated, but I will use MiraLAX once a day. 10. History of hypertension. I will continue with isosorbide mononitrate, but probably she will need more treatment. I will wait for furosemide to start working. cc: Brown Vazquez MD
[2018-11-30] MEDS: LOVENOX SUBQ SCH (21:23)
[2018-11-30] MEDS: LASIX IV SCH (21:26)
[2018-11-30] MEDS: TUMS PO SCH (21:27)
[2018-11-30] MEDS: SEROQUEL PO SCH (21:32)
[2018-11-30] MEDS: VITAMIN D PO SCH (21:33)
[2018-11-30] MEDS: TOPAMAX PO SCH (21:33)
[2018-11-30] MEDS ORDERED: CUBICIN 600 MG in NS 100 ML IV SCH (22:00)
--- NOTE | 2018-11-30 22:29 | CONSULTATION ---
DATE OF CONSULTATION: 11/30/2018 IMPRESSION: 1. Acute on chronic congestive heart failure with preserved left ventricular ejection fraction. 2. Severe calcific aortic stenosis by recent echocardiography. 3. Elevated CPK/MB with somewhat nonspecific elevation in troponin level. I suspect these values may potentially be related to myocardial strain in the setting of severe aortic stenosis and associated congestive heart failure. Underlying coronary atherosclerosis cannot be excluded. She has not had any angina. 4. Obesity. 5. Limited functional status post right zimxa-glv-aimu amputation for nonhealing ankle fracture. 6. Hypertension. 7. Chronic obstructive pulmonary disease. 8. Recent infectious process with enterococcus faecium urinary tract infection and associated bacteremia. Patient has been on antibiotic therapy following recent hospitalization and has continued on daptomycin via peripherally inserted central catheter line as an outpatient. RECOMMENDATIONS: 1. Agree with plans to diurese. 2. Follow up cardiac enzymes further. 3. As patient improves clinically, consider addition of beta jose. 4. Continue aspirin p.o. daily. 5. Ultimately patient may benefit from cardiac catheterization and coronary angiography to further evaluate her severe aortic stenosis. She may be a potential candidate for a TAVR. Given her limited functional status, she is probably not a very suitable candidate for cardiac surgery. HISTORY: This 77-year-old white female with past history of congestive heart failure with preserved left ventricular ejection fraction, COPD, obesity, hypertension, and right below-the- knee amputation for nonhealing ankle fracture was admitted because of progressive dyspnea symptoms and weakness. Troponin was abnormal in a nonspecific range. Cardiology was consulted and patient was admitted for further workup. She was recently hospitalized a few weeks ago with enterococcus faecium urinary tract infection with associated bacteremia. She also had cellulitis of the left lower extremity. She was treated with parental antibiotics and ultimately was discharged with a PICC line taking outpatient antibiotics with daptomycin. She has not yet fully completed this regimen. She has had problems with congestive heart failure and has for some time been on a very low dose of Lasix 20 mg which she takes as needed. She has what sounds like chronic orthopnea and has been sleeping in a recliner for the most part. There has been no angina. She had echocardiography performed during her recent hospitalization at [facility] which demonstrated evidence of severe aortic stenosis and preserved left ventricular ejection fraction. She has had considerable difficulty in last 3 or 4 days in making her usual transfers from her motorized wheelchair to a bedside commode and to her bed. She would get quite weak and short of breath during such. Because of progressive shortness of breath symptoms she came in for evaluation. She has actually been to the emergency room a few times in the last 3-4 days already. She has 1 of her daughters visiting her and they have had some disagreements and strong discussions of late which have caused some emotional stress. She seems to want to ascribe some of her symptoms to this. She has been living independently despite her disability. She uses a motorized wheelchair which has lifting capability. She has bedside commode and ramps in her home and is able to manage to live independently. She does have COPD and uses inhaler on a regular basis. PAST MEDICAL HISTORY: 1. Congestive heart failure with preserved left ventricular ejection fraction. 2. Severe aortic stenosis. 3. Chronic obstructive pulmonary disease with chronic respiratory failure. She has been on home oxygen. It is not clear how much of her home oxygen dependency might be related to chronic congestive heart failure. 4. Morbid obesity. 5. Status post right dlsoa-wpm-ertc amputation for management of chronic nonhealing ankle fracture 4 years ago. 6. Hypertension. 7. Hypothyroidism. 8. Dyslipidemia. 9. Fibromyalgia. 10. Irritable bowel syndrome. 11. Chronic anxiety. 12. Gastroesophageal reflux with recurrent aspiration. PAST SURGICAL HISTORY: Includes right mvvsy-ulj-ykki amputation, left knee surgery, bronchoscopy, colonoscopy and cystoscopic exam with bilateral retrograde ureteral pyelogram. ALLERGIES: She is allergic or intolerant to Abilify, Ultram, codeine, Advair Diskus, PARVIN inhibitors and penicillin. MEDICATIONS PRIOR TO ADMISSION: As listed. SOCIAL HISTORY: She lives independently by herself in [place]. She quit smoking several years ago but has a long history of cigarette use. She does not use alcohol. FAMILY HISTORY: Positive for coronary disease and diabetes mellitus. REVIEW OF SYSTEMS: Pulmonary: Noteworthy for chronic dyspnea and orthopnea. Gastrointestinal: Noteworthy for gastroesophageal reflux disease. Constitutional: Noncontributory beyond history of present illness. Remainder review of systems negative/noncontributory beyond history present illness with 14 total systems reviewed. PHYSICAL EXAMINATION: General: This is a obese white female in no distress on supplemental oxygen. Vital signs: Blood pressure 133/96, heart rate 95, oxygen saturation 98 to 100 percent on nasal cannula oxygen. HEENT: Extraocular movements intact. Mucous membranes moist. Neck: Supple. Jugular distention cannot be appreciated. There are no carotid bruits. Chest: Auscultation chest reveals a few scattered expiratory wheezes. Cardiac Exam: Reveals a regular rate and rhythm with a grade 2-3/6 crescendo/decrescendo systolic murmur at the right upper sternal border also heard at the apex and to the carotids. No gallop could be appreciated. Abdomen: Soft. Bowel sounds are normal. Extremities: Noteworthy for right tfjid-rmk-tffn amputation. There is no evidence of peripheral edema. DATA: Twelve lead EKG demonstrates sinus rhythm with occasional premature ventricular complex and right bundle branch block. LABORATORY DATA: Includes white blood cell count 12.2, hematocrit 32.2, hemoglobin 9.8, platelet count 247,000. Sodium 143, potassium 4.0, chloride 104, carbon dioxide 30, BUN 16, creatinine 0.6, glucose 106, CPK 1027, CPK/MB 40.75, CPK/MB index 4.0, troponin T 0.178. Pro B-natriuretic peptide level 1043. cc: Eric Calvo MD
[2018-11-30] MEDS: DUONEB (A & A) INH SCH (23:30)
[2018-12-01] MEDS: DUONEB (A & A) INH SCH ×6 (03:55→23:14)
[2018-12-01] MEDS: NORCO-5 PO PRN ×3 (06:45→19:05)
[2018-12-01 07:19] LABS: BASO# 0.01 X1000 (0.0-0.2); BASO% 0.1 % (0.0-0.8); EOS# 0.26 X1000 (0.0-0.7); HEMATOCRIT 28.4 % (37.0-47.0); HEMOGLOBIN 8.6 g/dL (12.0-16.0); IMM GRAN# 0.04 X1000 (0.0-0.04); IMM GRAN% 0.5 % (0.0-0.5); LYMPH# 1.53 X1000 (1.2-3.4); LYMPH% 17.6 % (20.5-51.1); MCH 27.7 PG (27-31); MCHC 30.3 g/dL (33-37); MCV 91.3 FL (81-99); MONO# 0.74 X1000 (0.11-0.59); MONO% 8.5 % (1.7-9.3); MPV 11.1 FL (7.4-10.4); NEUT# 6.09 X1000 (1.4-6.5); NEUT% 70.3 % (42.2-75.2); PLT 255 X1000 (130-400); RBC 3.11 XMIL (4.2-5.4); RDW 18.1 % (11.5-14.5); WBC 8.67 X1000 (4.8-10.8)
--- NOTE | 2018-12-01 07:38 | EKG Report ---
Test Performed on : 12/01/2018 06:48:58 AM Test Reason : chest pain Blood Pressure : / mmHG Vent. Rate : 091 BPM Atrial Rate : 091 BPM P-R Int : 130 ms QRS Dur : 148 ms QT Int : 416 ms P-R-T Axes : 049 059 028 degrees QTc Int : 511 ms Normal sinus rhythm. Right bundle branch block Abnormal ECG When compared with ECG of 30-NOV-2018 13:40, (Unconfirmed) aberrant conduction. is no longer present Confirmed by Gerson ALCANTARA, Roger ([id number]) on 12/01/2018 9:06:34 AM
[2018-12-01 07:40] LABS: AGAP 5; ALB/GLOB RATIO 0.9; ALBUMIN 2.8 g/dL (3.5-5.0); ALKALINE PHOSPHATASE 132 U/L (32-104); BUN 12 mg/dL (8-22); CALCIUM 8.8 mg/dL (8.8-10.2); CHLORIDE 98 mmol/L (98-107); COSMO 283; CREATININE 0.7 mg/dL (0.5-0.9); ESTIMATED GFR > 60; GLUCOSE 93 mg/dL (70-104); GOT 77 U/L (10-30); GPT 68 U/L (10-36); POTASSIUM 3.3 mmol/L (3.5-5.1); SODIUM 142 mmol/L (136-145); TCO2 39 mmol/L (25-35); TOTAL BILIRUBIN 0.29 mg/dL (0.20-1.00)
--- NOTE | 2018-12-01 08:29 | CONSULTATION ---
DATE OF CONSULTATION: 12/01/2018 CONCLUSION: I have been consulted to see the patient because of a enterococcal urinary tract infection. She was being treated with daptomycin. When I have discussed thoroughly with the patient her urinary tract infection and as best as I can determine, she was asymptomatic for the enterococcal urinary tract infection. Also, the patient was being treated with daptomycin and her CPK has increased to 1270. Therefore, for two reasons, one, the patient's urinary tract infection was asymptomatic and two, the daptomycin that was used to treat it is most likely the cause of her having a very elevated CPK. Because of these two reasons, I do not think the patient should have any further treatment for the urinary tract infection. She does have cellulitis on the left leg and I think that should be treated and I have taken the liberty of starting her on clindamycin because she has a very severe penicillin allergy for which I would not use penicillin or cephalosporin antibiotic. Finally, the patient is complaining of right hip pain. RECOMMENDATIONS: As mentioned above. I do not think the patient should receive any further treatment for her urinary tract infection and I have discontinued daptomycin. Also I do think the cellulitis in her leg should be treated and because of her severe penicillin allergy, I am going to start treatment with p.o. clindamycin. I have ordered x-ray of the right hip because the patient says she is having pain in it. DISCUSSION: The patient came to the emergency room. She was short of breath and she said she was weak. Her chest x-ray shows pulmonary edema. She is being given Lasix for it and she thinks it has helped her dyspnea because she has been putting out a lot of urine. As mentioned above, the patient had an asymptomatic enterococcal urinary tract infection. 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 She has had a hysterectomy and bilateral salpingo- oophorectomy. MEDICAL HISTORY: 1. COPD. 2. Morbid obesity. 3. Hypertension. 4. Hypothyroidism secondary to surgical removal of the thyroid. 5. Dyslipidemia. 6. Fibromyalgia. 7. Interval bowel syndrome. 8. Chronic anxiety. 9. Gastroesophageal reflux disease with aspiration. 10. Congestive heart failure. PAST SURGICAL HISTORY: 1. Right nltzq-gkn-nyja amputation due to nonhealing of an ankle fracture. 2. Left knee surgery. 3. Bronchoscopy. 4. Colonoscopy. 5. Cystoscopy with bilateral retrograde ureteral pyelogram. INFECTIOUS DISEASE HISTORY: Positive for pneumonia, cellulitis of the leg, and urinary tract infection. FAMILY HISTORY: Positive for diabetes mellitus, myocardial infarction, stroke, and cancer. SOCIAL HISTORY: The patient lives in the [facility]. She lives alone. She has a dog as a pet. She does not smoke cigarettes, drink alcoholic beverages or abuse drugs. HOME MEDICATIONS: Albuterol inhaler, allopurinol, aspirin, Symbicort, Lovenox, Lasix, hydrocodone, Isordil, Savella, Prilosec, MiraLAX, Seroquel, Topamax, and vitamins. DRUG ALLERGIES: Abilify, Ultram, codeine, Advair Diskus, PARVIN inhibitors and penicillin. The penicillin reaction was anaphylaxis. PRESENT ILLNESS: The patient's CBC shows a white count of 12,200, hemoglobin 9.8, platelet count 247,000. Creatinine 0.6, GFR is greater than 60. CPK was 1024. Blood and urine cultures are pending. Chest x-ray shows pulmonary edema. Patient is complaining of pain in the right hip. HEIGHT/WEIGHT: Patient is 5 feet 4 inches tall, weighs 218 pounds. PHYSICAL EXAMINATION: Vital Signs: Temperature is 99 degrees, pulse 90, respirations 20, blood pressure 145/72. General: This is an obese, elderly female. She is slightly dyspneic at rest. Head/eyes/ears/nose/throat: She can hear my spoken words and see near objects. She does not have any white coating on her tongue. Neck: She does not have any pain when she turns her head. Lungs: There were bibasilar rales. Cardiovascular: Heart rate is regular with a systolic murmur. Abdomen: Soft and nontender. Neurologic: Patient is alert. She can move her extremities. There is no tremor. Her sensation is intact to touch. Her memory as regarding her medical history is in intact. Extremities: The patient has a right jgmrp-gob-kqcc amputation. The incision is intact. Since the patient complained of right hip pain, I tried to examine the hip as best I could. I did move her hip passively and it did not seem to cause the patient any pain. Thank you for the consult. cc: Dandre Galarza MD
[2018-12-01] MEDS: VITAMIN D PO SCH ×2 (08:56→20:47)
[2018-12-01] MEDS: ZYLOPRIM PO SCH (08:57)
[2018-12-01] MEDS: TUMS PO SCH ×2 (08:57→20:48)
[2018-12-01] MEDS: TOPAMAX PO SCH ×2 (08:57→20:48)
[2018-12-01] MEDS: VICON-C PO SCH (08:57)
[2018-12-01] MEDS: CLEOCIN PO SCH ×3 (08:57→22:15)
[2018-12-01] MEDS: IMDUR PO SCH (08:57)
[2018-12-01] MEDS: ASPIRIN PO SCH (08:57)
[2018-12-01] MEDS: SAVELLA PO SCH ×3 (08:58→17:18)
[2018-12-01] MEDS: MIRALAX PO SCH (08:58)
[2018-12-01] MEDS: PRILOSEC PO SCH (08:58)
[2018-12-01] MEDS: LASIX IV SCH ×2 (08:59→20:46)
[2018-12-01] MEDS ORDERED: NON-FORMULARY MED (Omeprazole 1 CAP) PO SCH (09:00)
--- NOTE | 2018-12-01 09:37 | Diag Imaging Result Doc PS360 ---
EXAM: CHEST-PORTABLE HISTORY: SOB TECHNIQUE: Chest single view COMPARISON: 11/30/2018 FINDINGS: The lungs are well expanded. No change in the left-sided PICC line. No cardiomegaly. There are increased interstitial markings in the mid and lower lungs fairly similar to the prior study. No consolidation. There appears to be a small left pleural effusion. IMPRESSION: No interval improvement. Electronically signed by Getachew Caro 12/01/2018 9:34 AM
--- NOTE | 2018-12-01 09:37 | Diag Imaging Result Doc PS360 ---
EXAM: HIP 1 VIEW RIGHT 12/01/2018 HISTORY: R hip pain TECHNIQUE: Right hip one view COMMENT: The radiograph is technically suboptimal with grid lines. There is no evidence of acute fracture or dislocation. IMPRESSION: No evidence of acute bony disease. Electronically signed by Dick Neumann 12/01/2018 9:35 AM
[2018-12-01] MEDS: SYMBICORT 160/4.5 MICROGM INHALER INH SCH ×2 (11:32→19:14)
--- NOTE | 2018-12-01 17:01 | PROGRESS NOTE ---
DATE: 12/01/2018 SUBJECTIVE: Patient reports feeling better. She denies shortness of breath, on supplemental oxygen per nasal cannula. She is lying at about 20 degrees elevated with respect to her back. There has been no chest pain. OBJECTIVE: Vital Signs: Blood pressure 122/61, heart rate 96, oxygen saturation 98% to 100%. Neck: Jugular venous distention cannot be appreciated. Chest: Auscultation reveals a few inspiratory crackles in the right base posteriorly. A few faint expiratory wheezes are evident. Cardiac Exam: Reveals a regular rate and rhythm with a grade 2-3/6 crescendo/decrescendo systolic murmur at the right upper sternal border and apex. No diastolic murmur appreciated. Extremities: Without edema. LABORATORY DATA: Includes a white blood cell count of 8.67, hematocrit 28.4, hemoglobin 8.6, platelet count 255. Sodium 142, potassium 3.3, chloride 98, carbon dioxide 39, BUN 12, creatinine 0.7. Troponin 0.153. IMPRESSION: 1. Acute on chronic congestive heart failure with preserved left ventricular ejection fraction. 2. Severe calcific aortic stenosis. 3. Nonspecific elevation of troponin with elevated CPK-MB. Suspected potentially related to myocardial strain in the setting of severe aortic stenosis and associated congestive heart failure. Cannot exclude underlying coronary atherosclerosis. She has not had angina. 4. Obesity. 5. Limited functional status, status post right below the knee amputation for nonhealing ankle fracture. 6. Hypertension. 7. Severe chronic obstructive pulmonary disease. 8. Recent infectious process with Enterococcus faecium urinary tract infection, associated bacteremia. She has also had cellulitis. RECOMMENDATIONS: 1. Continue diuresis. 2. Consider initiation of beta-jose depending on clinical course. 3. Ultimately, the patient would benefit from coronary angiography to further evaluate her severe aortic stenosis. She may potentially be a candidate for TAVR. cc: Eric Calvo MD
--- NOTE | 2018-12-01 17:51 | PROGRESS NOTE ---
DATE: 12/01/2018 SUBJECTIVE: Ms. Orta was admitted yesterday 11/30/2018, came in with shortness of breath and weakness. A 77-year-old female with past medical history of COPD, prior history of tobacco use, obesity, status post right knee amputation due to nonhealing ankle fracture 4 years ago, chronic right extremity cellulitis, hypertension, hypothyroidism, dyslipidemia, fibromyalgia, irritable bowel syndrome, anxiety, gastroesophageal reflux disease, and apparent recurrent aspiration with aspiration pneumonia recently discharged on 11/23/2018 due to COPD exacerbation, left lower extremity cellulitis, and Enterococcus faecium urinary tract infection. Discharged on daptomycin because apparently left lower extremity had infection as well with cellulitis. She had a PICC line. Apparently, she will complete treatment on 12/02/2018. Follow up with Infectious Disease Department. She has been having some shortness of breath. She tried to stand up from her chair to go to the bedside commode, but she could not do it, basically got stuck between the chairs, so she called for help. In emergency department she was found to have pulmonary edema. Elevated troponins 0.175 and 0.178. They called Cardiology Department. They suggested to keep the patient, keep monitoring troponin level. Previous echocardiogram showed normal ejection fraction, but increased pulmonary artery pressure. The patient has diastolic congestive heart failure in the setting of COPD so was put up into the CIC unit. The patient reports that she is breathing a little better. I saw her about 5 o'clock p.m. on 12/01/2018. OBJECTIVE: Vital Signs: Remains afebrile, pulse 88, respirations 14, blood pressure 122/60. HEENT: Pupils are equal and round. Lungs: Clear in all lung wright. Cardiovascular: Regular rhythm and rate without murmur or S3. LABORATORY STUDIES: Urine output today was 7600 mL. Reviewed lab from yesterday white count 8670, hematocrit 28, platelet count 255,000. Sodium 142, potassium 3.3, chloride 98, BUN 12, creatinine 0.7. AST was 77, ALT was 68 which is down from yesterday. Her AST was 110, ALT was 882. Troponin 0.178, then 0.164, then 0.153 sequentially. CPK was 1000. Chest x-ray on admission, some pulmonary edema appreciated. Follow-up chest x-ray the following on 11/30/2018 was very little improvement. Lungs are well expanded. No change in left-sided PICC line. No cardiomegaly. There are increased interstitial markings in the mid lower lungs fairly similar to prior study. No consolidation. Appears to be small left pleural effusion. ASSESSMENT AND PLAN: 1. History of enterococcal urinary tract infection, treated with daptomycin. She is asymptomatic of her urinary tract infection, being treated with daptomycin and CPK increased to 1200. Daptomycin is most likely the cause of this elevated CPK, so that will be stopped and does not appear she has any symptoms which would justify treating the urinary sediment. 2. Does have cellulitis in the left leg, so started on clindamycin. She has a severe penicillin allergy so Dr. Galarza does not want to use penicillin or cephalosporin antibiotic. 3. Chronic obstructive pulmonary disease with chronic obstructive pulmonary disease exacerbation. 4. Morbid obesity. 5. Hypertension. 6. History of hypothyroidism secondary to surgical removal of the thyroid gland. 7. Dyslipidemia. 8. Fibromyalgia. 9. Irritable bowel syndrome. 10. Chronic anxiety. 11. Gastroesophageal reflux disease. 12. Congestive heart failure. REVIEW OF ORDERS: She is on albuterol ipratropium 3 mL q.2 h. p.r.n. and she getting q.4 h. while awake I believe, allopurinol 100 mg p.o. daily, aspirin 81 mg a day, budesonide formoterol 2 puffs inhaled b.i.d., calcium carbonate 500 mg b.i.d., vitamin D 3000 units b.i.d., Cleocin 300 mg q.8 h., Lovenox 40 mg subcutaneous q.24 h., Lasix 40 mg IV q.12 h., isosorbide mononitrate 30 mg p.o. daily, Savella 50 mg p.o. t.i.d., Prilosec 40 mg daily, MiraLAX 17 g daily, Seroquel 400 mg at bedtime, Topamax 25 mg b.i.d. Reviewed all of her lab. Hematocrit 28, hemoglobin 8.6, which is stable. Sodium was 142, potassium 3.3, chloride 98, BUN 12, creatinine 0.7. AST was 77, ALT was 68, and that is down from her admission AST of 100, ALT of 82. cc: Kenneth Weiner MD
[2018-12-01] MEDS ORDERED: CARDIZEM 125/NS 125 MG/125 ML IVPB IV SCH (18:00)
[2018-12-01] MEDS: SEROQUEL PO SCH (20:40)
[2018-12-01] MEDS: LOVENOX SUBQ SCH (20:42)
--- NOTE | 2018-12-01 23:37 | ECHO REPORT ---
ORDER DATE: 12/01/2018 MEASUREMENTS: Septal thickness 1.3. Left ventricular internal diameter in diastole 4.9. Posterior wall thickness 1.2. Left ventricular internal diameter in systole 3.3. Left atrium 4.0. Aortic root 3.4. SUMMARY: 1. Fair quality study. 2. Fibrocalcific changes of aortic valve demonstrated, with reduced aortic valve leaflet mobility demonstrated. Peak gradient across the aortic valve is 80 mmHg, with a mean gradient of 44 mmHg. Calculated aortic valve area by Doppler is 1.0 cm2. Severe aortic stenosis is suggested. There is trace aortic regurgitation. Mild to moderate thickening of mitral valve leaflets demonstrated, with adequate mitral valve opening evident. Mitral valve area by pressure half-time is 3.2 cm2. There is trace mitral regurgitation. Tricuspid valve is without evidence of structural abnormality, with trace tricuspid regurgitation. Pulmonic valve is without evidence of structural abnormality with trace pulmonic insufficiency. The aortic root is normal size. 3. Normal left ventricular chamber size with mild concentric left ventricular hypertrophy is demonstrated. Estimated left ventricular ejection fraction appears to be at least 60%. No regional wall motion abnormalities are evident. Doppler suggests grade 1 left ventricular diastolic dysfunction. The left atrium is borderline enlarged. The right atrium and right ventricle are grossly normal in size. 4. No pericardial effusion. 5. Inferior vena cava not well demonstrated. cc: Eric Calvo MD
[2018-12-02] MEDS: NORCO-5 PO PRN ×4 (01:39→20:53)
[2018-12-02] MEDS: DUONEB (A & A) INH SCH ×6 (04:03→23:37)
[2018-12-02] MEDS ORDERED: CALMOSEPTINE OINTMENT TOP PRN (05:57)
[2018-12-02] MEDS: CLEOCIN PO SCH ×3 (06:00→20:53)
[2018-12-02] MEDS: PRILOSEC PO SCH (06:00)
--- NOTE | 2018-12-02 06:49 | EKG Report ---
Test Performed on : 12/01/2018 5:22:24 PM Test Reason : conversion to A fib Blood Pressure : / mmHG Vent. Rate : 128 BPM Atrial Rate : 125 BPM P-R Int : 000 ms QRS Dur : 142 ms QT Int : 376 ms P-R-T Axes : 000 073 -27 degrees QTc Int : 548 ms Atrial fibrillation. with rapid ventricular response. Right bundle branch block T wave abnormality, consider inferior ischemia Abnormal ECG When compared with ECG of 01-DEC-2018 06:48, Atrial fibrillation. has replaced Sinus rhythm. T wave inversion more evident in Inferior leads Confirmed by Gerson ALCANTARA, Roger ([id number]) on 12/02/2018 8:51:53 AM
--- NOTE | 2018-12-02 06:50 | EKG Report ---
Test Performed on : 12/01/2018 5:54:11 PM Test Reason : conversion to sinus rhythm Blood Pressure : / mmHG Vent. Rate : 105 BPM Atrial Rate : 105 BPM P-R Int : 134 ms QRS Dur : 146 ms QT Int : 400 ms P-R-T Axes : 093 072 067 degrees QTc Int : 528 ms Sinus tachycardia. with premature atrial complexes. Right bundle branch block Abnormal ECG When compared with ECG of 01-DEC-2018 17:22, (Unconfirmed) Sinus rhythm. has replaced Atrial fibrillation. T wave inversion no longer evident in Inferior leads Confirmed by Gerson ALCANTARA, Roger ([id number]) on 12/02/2018 8:52:20 AM
--- NOTE | 2018-12-02 06:59 | INFECTIOUS DISEASE PROGRESS NO ---
DATE: 12/02/2018 PRESENT ILLNESS: The patient was initially seen because of an enterococcal urinary tract infection. The patient had no symptoms of urinary tract infection and the most recent urine culture is sterile. The patient also has cellulitis involving the left leg and that is improved. The patient also complained of severe right hip pain and on x-ray there was no acute disease seen and the pain is dramatically better than it was yesterday and when she moved her hip she did not have pain almost at all. Finally, the patient had an elevated CPK which I think might well have been due to the fact that she was on daptomycin. MEDICATIONS: The only medication I have started on the patient is clindamycin which seems to be helping her left leg cellulitis. PHYSICAL EXAMINATION: Vital Signs: Temperature is 98.4 degrees, pulse 94, respirations 20, blood pressure 105/55. General: This is a chronically ill-appearing, obese, elderly female. She is in no acute distress this morning. HEENT: She can hear my spoken words and see near objects. She does not have any white coating on her tongue. Neck: There is no pain in the neck when I move her head. Lungs: Clear to auscultation. Cardiovascular: Regular heart rate with a systolic murmur. Abdomen: Soft and nontender. Extremities: The patient does not have hardly any pain at all when her right hip is being moved at this time. This was a marked improvement over what it was yesterday. The patient has a right qnqjj-zgw-bqab amputation. The incision is intact. Neurologic: The patient is awake. She can move her extremities. There is no tremor. LAB AND X-RAY: CBC today shows a white count of 8670, hemoglobin 8.6, platelet count 255,000. Creatinine 0.7. GFR is greater than 60. Her liver function tests are improving. They are almost completely normal now. Urine cultures negative. Blood and sputum cultures are pending. Right hip x-ray showed no acute disease. ASSESSMENT AND PLAN: 1. The patient has an asymptomatic urinary tract infection. No further treatment is indicated. 2. The patient's CPK was very high. I think it was due to being on daptomycin, but I am going to go ahead and repeat the CK tomorrow. Daptomycin has been stopped. 3. Patient has cellulitis of the left leg and that is improving. I plan to continue clindamycin. 4. Patient had hip pain but it is almost completely gone and I am not planning on doing any further tests on the hip. 5. The patient's comorbidities include COPD, morbid obesity, chronic anxiety, gastroesophageal reflux disease with aspiration, and congestive heart failure. cc: Dandre Galarza MD MTDD
[2018-12-02] MEDS: SYMBICORT 160/4.5 MICROGM INHALER INH SCH ×2 (07:39→18:38)
[2018-12-02] MEDS: LASIX IV SCH ×2 (08:42→18:45)
[2018-12-02] MEDS: VICON-C PO SCH (08:42)
[2018-12-02] MEDS: TUMS PO SCH ×2 (08:43→20:53)
[2018-12-02] MEDS: TOPAMAX PO SCH ×2 (08:43→20:53)
[2018-12-02] MEDS: VITAMIN D PO SCH ×2 (08:43→20:53)
[2018-12-02] MEDS: MIRALAX PO SCH (08:43)
[2018-12-02] MEDS: ASPIRIN PO SCH (08:43)
[2018-12-02] MEDS: IMDUR PO SCH (08:43)
[2018-12-02] MEDS: ZYLOPRIM PO SCH (08:43)
--- NOTE | 2018-12-02 09:36 | PROGRESS NOTE ---
DATE: 12/02/2018 SUBJECTIVE: Ms. Orta is hurting in her right hip and her lower back. Breathing is doing pretty good, but just uncomfortable. She is getting [place] every 6 hours and I hesitate to go up on that much. We will see if we can get her out of bed, sit her up. 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 OBJECTIVE: Vitals: Temperature 97.9 degrees, pulse 94, respirations 15, blood pressure 218/73. Eyes: Pupils are equal and round. Lungs: Clear in all lung wright. Cardiovascular: Regular rhythm and rate without murmur or S3. Abdomen: Soft. Skin: Warm and dry. Blood pressures look good. ASSESSMENT: 1. She was initially seen for enterococcal urinary tract infection. No symptoms of urinary tract infection and most recent urine was sterile. 2. Cellulitis of the left leg, which is improved. She complains of severe right hip pain. X-ray did not show any acute disease, but still quite a bit of pain, which I think is mainly arthritic. We have stopped the daptomycin because of an elevation of CPK and the patient started on clindamycin which seems to be helping the cellulitis. 3. CPK was high and I stopped the daptomycin. We will check her CPK level again tomorrow. Renal function looks good. 4. Chronic obstructive pulmonary disease with pulmonary disease with mild exacerbation. 5. Morbid obesity. 6. Hypertension. 7. History of hypothyroidism from a surgically removed thyroid gland. 8. Dyslipidemia. 9. Fibromyalgia. 10. Irritable bowel syndrome. 11. Chronic anxiety. 12. Gastroesophageal reflux disease. 13. Congestive heart failure history. Her chest x-ray from yesterday, lungs were well expanded. No change in left-sided PICC line. There were increased interstitial markings in the mid and lower lungs fairly similar to the prior study. No consolidation. Appears to have a small left pleural effusion. PLAN: We will recheck another chest x-ray. We will check her CKs again tomorrow. Make sure Physical Therapy is involved. We need to see about getting her a new prosthesis or getting that one fixed and then make plans for discharge, determine whether she needs to go to rehab. She lives by herself in a trailer. cc: Kenneth Weiner MD
[2018-12-02] MEDS: SAVELLA PO SCH ×3 (10:31→20:53)
[2018-12-02] MEDS: LOVENOX SUBQ SCH (18:45)
--- NOTE | 2018-12-02 19:10 | Diag Imaging Result Doc PS360 ---
CT ANGIOGRM PULMONARY ARTERIES - 12/02/2018 INDICATION: rule out pulmonay embolus TECHNIQUE: Axial CT images were obtained after administering intravenous contrast. Coronal MIP images were generated. COMPARISON: 11/16/2018 FINDINGS: There is no pulmonary embolism. There is cardiomegaly. There is a hiatal hernia. There is no adenopathy. There are some stable minimal bilateral upper lobe airspace infiltrate suggesting edema or pneumonia. Stable areas of atelectasis in the lingula and right lower lobe. No pneumothorax or large pleural effusion. Upper abdominal images are unremarkable. There are moderate degenerative changes of the spine. No acute or suspicious bony lesion. IMPRESSION: Negative for pulmonary embolism. Cardiomegaly. Mild pulmonary edema versus upper lobe pneumonia stable from prior. Stable bibasilar atelectasis. This exam was performed using automated exposure control, adjustment of mA or kV according to patient size, and/or use of iterative reconstruction technique Electronically signed by Tylor Hou 12/02/2018 7:08 PM
--- NOTE | 2018-12-02 19:34 | PROGRESS NOTE ---
DATE: 12/02/2018 SUBJECTIVE: The patient continues without chest discomfort or dyspnea. She complains primarily of right hip discomfort. OBJECTIVE: Blood pressure 108/63, heart rate 99 and regular, with ECG monitor showing sinus rhythm. She did have transient atrial fibrillation with rapid ventricular rate last night. Oxygen saturation 99% on supplemental oxygen per nasal cannula. Jugular venous distention cannot be appreciated. Chest is clear to auscultation. Cardiac exam reveals a regular rate and rhythm with a grade 2/6 to 3/6 crescendo-decrescendo systolic murmur at the right upper sternal border and apex. Extremities are without edema. DIAGNOSTIC DATA: Echocardiography demonstrates calcific aortic stenosis with calculated aortic valve area 1.0 cm2. Left ventricular ejection fraction is normal with mild concentric left ventricular hypertrophy demonstrated. IMPRESSION: 1. Ngwfg-on-jhcumeq congestive heart failure with preserved left ventricular ejection fraction. The patient appears to be clinically improved. 2. Severe calcific aortic stenosis. 3. Nonspecific elevation in troponin with elevated CPK-MB. Suspect potentially related to myocardial strain in the setting of severe stenosis and associated congestive heart failure. Cannot exclude underlying coronary atherosclerosis, although she has not had any angina. Consider also the possibility of pulmonary thromboembolism, given her immobility. 4. Obesity. 5. Limited functional status. The patient is status post right mgjgc-dbg-[id number] amputation for nonhealing ankle fracture. 6. Hypertension. 7. Severe chronic obstructive pulmonary disease. 8. Recent infectious process with Enterococcus faecium urinary tract infection with associated bacteremia. She also had cellulitis. RECOMMENDATIONS: 1. Reduce Lasix. 2. Screen for pulmonary embolus with CT angiography. 3. Ultimately the patient would benefit from cardiac catheterization/coronary angiography to further evaluate her severe aortic stenosis, as she may potentially be a candidate for TAVR. cc: Eric Calvo MD
[2018-12-02] MEDS: SEROQUEL PO SCH (20:53)
[2018-12-02] MEDS: LOPRESSOR PO SCH (20:55)
[2018-12-03] MEDS: NORCO-5 PO PRN ×4 (01:06→18:17)
[2018-12-03] MEDS: DUONEB (A & A) INH SCH ×6 (03:24→23:30)
[2018-12-03] MEDS: LOVENOX SUBQ SCH ×2 (05:03→17:41)
[2018-12-03] MEDS: PRILOSEC PO SCH ×2 (05:04→06:38)
[2018-12-03] MEDS: CLEOCIN PO SCH ×3 (05:04→21:26)
[2018-12-03 06:14] LABS: AGAP 13; ALB/GLOB RATIO 0.8; ALKALINE PHOSPHATASE 147 U/L (32-104); BUN 17 mg/dL (8-22); CALCIUM 9.3 mg/dL (8.8-10.2); CHLORIDE 92 mmol/L (98-107); COSMO 280; CREATININE 0.9 mg/dL (0.5-0.9); ESTIMATED GFR > 60; GLUCOSE 119 mg/dL (70-104); GOT 51 U/L (10-30); GPT 58 U/L (10-36); MAGNESIUM 1.6 mg/dL (1.5-2.7); SODIUM 139 mmol/L (136-145); TCO2 34 mmol/L (25-35); TOTAL BILIRUBIN 0.48 mg/dL (0.20-1.00); TOTAL PROTEIN 6.7 g/dL (6.3-8.3)
[2018-12-03 06:17] LABS: BASO# 0.02 X1000 (0.0-0.2); BASO% 0.2 % (0.0-0.8); EOS# 0.25 X1000 (0.0-0.7); EOS% 2.5 % (0.0-10.0); HEMATOCRIT 30.2 % (37.0-47.0); HEMOGLOBIN 9.3 g/dL (12.0-16.0); IMM GRAN# 0.03 X1000 (0.0-0.04); IMM GRAN% 0.3 % (0.0-0.5); LYMPH# 1.08 X1000 (1.2-3.4); LYMPH% 10.9 % (20.5-51.1); MCH 27.7 PG (27-31); MCHC 30.8 g/dL (33-37); MCV 89.9 FL (81-99); MONO# 0.79 X1000 (0.11-0.59); MONO% 7.9 % (1.7-9.3); MPV 11.3 FL (7.4-10.4); NEUT# 7.78 X1000 (1.4-6.5); NEUT% 78.2 % (42.2-75.2); PLT 246 X1000 (130-400); RBC 3.36 XMIL (4.2-5.4); RDW 18.3 % (11.5-14.5); WBC 9.95 X1000 (4.8-10.8)
[2018-12-03 06:19] LABS: CK PROFILE 248 U/L (24-173)
[2018-12-03 06:42] LABS: CK INDEX 1.7 (0.0-2.5); CK-MB 4.25 ng/mL (0.0-5.0)
--- NOTE | 2018-12-03 07:37 | Diag Imaging Result Doc PS360 ---
CHEST-PORTABLE - 12/03/2018 INDICATION: copd COMPARISON: 12/01/2018 FINDINGS: Stable left PICC line in good position. There is worsening in the right basilar infiltrate. Stable patchy infiltrates in the lingula and left midlung. Stable cardiomegaly and pulmonary vascular congestion. No pneumothorax or significant pleural effusion. IMPRESSION: Slight worsening in right basilar infiltrate, compatible with pneumonia and/or pulmonary edema. Electronically signed by Tylor Hou 12/03/2018 7:34 AM
--- NOTE | 2018-12-03 07:40 | INFECTIOUS DISEASE PROGRESS NO ---
DATE: 12/03/2018 PRESENT ILLNESS: The patient currently is being treated for cellulitis of the left leg. Also, the patient had an elevated CPK when she came in the hospital but now it is down to 248 and finally, the patient continues to have severe right hip pain when there has been movement of the hip. MEDICATIONS: The patient is on oral clindamycin to treat the left leg cellulitis. PHYSICAL EXAMINATION: Vital Signs: Temperature is 98 degrees, pulse 86, respirations 16, blood pressure 137/57. General: This is a chronically ill appearing, obese, elderly female. She is in no acute distress except when I had the foot of her bed elevated and then she complained of having a lot of pain in her right hip area. Head/eyes/ears/nose/throat: She can hear my spoken words and see near objects. She does not have any white patches on her tongue. Neck: She did not complain of any pain when she moved her head. Lungs: Clear to auscultation. Cardiovascular: Heart rate is regular with a systolic murmur. Abdomen: Soft and nontender. Right hip: There was no erythema. When we did move her leg as mentioned above, it seemed to cause her a lot of pain. Neurologic: The patient is awake. She can move her arms. She does not have any tremor. LAB AND X-RAY: The patient had a pulmonary angiogram. The patient did not have a pulmonary embolus. She did have pulmonary edema versus upper lobe pneumonia. She also had bibasilar atelectasis. Blood and urine cultures are negative. CBC shows a white count of 9950, hemoglobin 9.3, and platelet count 246,000. Creatinine is 0.9. GFR is greater than 60. CPK is 248. ASSESSMENT AND PLAN: The patient has left leg cellulitis. I plan to continue clindamycin. I have also ordered that the foot of the bed is to be elevated by the manual Gatch continuously. I have also ordered a CT scan without contrast of the right hip. COMORBIDITIES: Include COPD, morbid obesity, chronic anxiety, gastroesophageal reflux disease with aspiration, and congestive heart failure. cc: Dandre Galarza MD
[2018-12-03] MEDS: SYMBICORT 160/4.5 MICROGM INHALER INH SCH ×2 (07:46→18:45)
--- NOTE | 2018-12-03 07:54 | Diag Imaging Result Doc PS360 ---
EXAM: CT PELVIS W/O CONTRAST 12/03/2018 HISTORY: right hip pain TECHNIQUE: This exam was performed using automated exposure control, adjustment of mA or kV according to patient size, and/or use of iterative reconstruction technique. COMMENT: The current examination is compared with the previous study of 11/25/2018. 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 There is a large amount of stool present in the colon. There is some diverticulosis in the sigmoid colon without evidence of active diverticulitis. There is a Ba catheter in the bladder. The bladder is not distended. There is skin thickening and subcutaneous edema present in the medial inferior right gluteal region. No discrete fluid collection is demonstrated. There is a similar but less dense more extensive finding on the left side. There is a calcified nodule present on the left which is probably an injection granuloma. Compared to the previous examination these findings were also present previously. There is joint space narrowing in both hips particularly posteriorly. There is no evidence of acute fracture or bony erosion. There are degenerative disc changes with vacuum phenomenon at L3-4 L4-5 and L5-S1. There is facet arthropathy as well with spinal stenosis at the L4-5 and L3-4 levels. IMPRESSION: 1. Constipation. Diverticulosis coli. 2. Edema/cellulitis in the subcutaneous gluteal fat on the right more than the left. 3. Osteoarthritis and degenerative disc and facet disease with spinal stenosis at L4-5 and L3-4. Electronically signed by Dick Neumann 12/03/2018 7:51 AM
[2018-12-03] MEDS ORDERED: LASIX IV SCH (09:00)
--- NOTE | 2018-12-03 09:36 | PROGRESS NOTE ---
DATE: 12/03/2018 SUBJECTIVE: Ms. Orta is awake and eating breakfast. She is having some spasm in her back. Her breathing seems to be a little better. OBJECTIVE: Vital signs: Temperature 98.2 degrees, pulse 90, respirations 18, blood pressure 96/67. HEENT: Pupils are equal and round. Lungs: Clear in all lung wright anterolaterally. Cardiovascular: Regular rhythm and rate without murmur or S3. Abdomen: Soft. Skin: Warm and dry. Genitourinary: Urine output is 4100 mL. LABORATORY DATA: Reviewed lab from yesterday. IMAGING: Chest x-ray from this morning. Slight worsening in right basilar infiltrate compatible with pneumonia, pulmonary edema. Pelvic CT done this morning shows some constipation, diverticulosis coli, edema, cellulitis, subcutaneous gluteal fat on the right more than the left, osteoarthritis, degenerative disk and facet disease, spinal stenosis L4-5, L3-4. ASSESSMENT AND PLAN: 1. Being treated for cellulitis of the left leg. The patient presented with elevation of CPK and this has come down. [place] the CPK elevation was related to her antibiotic and so was switched. Dr. Galarza has switched her to clindamycin, ordered that the foot of the bed be elevated and see if we can get some movement in that hip as well. 2. She has significant lumbosacral arthritis. 3. Acute on chronic congestive heart failure, preserved left ventricular ejection fraction. This appears to be improving. 4. Obesity. 5. Limited functional status. She lives alone, having Social Service look and see about her options for rehab. 6. Hypertension. 7. Severe chronic obstructive pulmonary disease. 8. Urinary tract infection suspected with Enterococcus faecium associated with bacteremia. Continue present treatment. I do not see any change. cc: Kenneth Weiner MD
[2018-12-03] MEDS: SAVELLA PO SCH ×3 (09:50→17:41)
[2018-12-03] MEDS: VICON-C PO SCH (09:50)
[2018-12-03] MEDS: LOPRESSOR PO SCH ×2 (09:51→21:26)
[2018-12-03] MEDS: ASPIRIN PO SCH (09:51)
[2018-12-03] MEDS: VITAMIN D PO SCH ×2 (09:51→21:26)
[2018-12-03] MEDS: TOPAMAX PO SCH ×2 (09:51→21:26)
[2018-12-03] MEDS: IMDUR PO SCH (09:51)
[2018-12-03] MEDS: TUMS PO SCH ×2 (09:51→21:26)
[2018-12-03] MEDS: ZYLOPRIM PO SCH (09:51)
[2018-12-03] MEDS: MIRALAX PO SCH (09:56)
[2018-12-03] MEDS ORDERED: KLOR-CON PO ONE ×3 (18:02→22:00)
--- NOTE | 2018-12-03 18:09 | PROGRESS NOTE ---
DATE: 12/03/2018 SUBJECTIVE: The patient continues without chest discomfort or dyspnea, on supplemental oxygen per nasal cannula. OBJECTIVE: Blood pressure 133/78, heart rate 85 and regular, oxygen saturation 100% on nasal cannula oxygen. There is no significant jugular venous distention. Chest is clear to auscultation bilaterally. Cardiac exam reveals a regular rate and rhythm with a grade 2/6 to 3/6 crescendo-decrescendo systolic murmur at the right upper sternal border. No gallop could be appreciated. Abdomen is soft. Bowel sounds normal. Extremities are without edema. LABORATORY DATA: Includes a white blood cell count of 9.95, hematocrit 30.2, hemoglobin 9.3, platelet count 246,000. Sodium 139, potassium 3.0, chloride 92, carbon dioxide 34, BUN 17, creatinine 0.9. CPK 248, CK-MB 4.25, MB index 1.2. IMPRESSION: 1. Recent zvhrx-wp-[id number] congestive heart failure with preserved left ventricular ejection fraction. The patient has improved clinically with diuresis. 2. Severe calcific aortic stenosis. 3. Nonspecific elevation in troponin with elevated CPK and CK-MB. Suspect potentially related to myocardial strain in the setting of severe aortic stenosis and associated congestive heart failure. Daptomycin may also be contributing to elevated CPK, but CK-MB index was abnormal, suggesting potentially related to cardiac etiology. Cannot exclude underlying coronary atherosclerosis, although she has not had any angina. No evidence of pulmonary thromboembolism. 4. Obesity. 5. Limited functional status. The patient is status post right rfauz-whk-vlfx amputation for nonhealing ankle fracture. 6. Hypertension. 7. Severe chronic obstructive pulmonary disease. 8. Recent infectious process with Enterococcus faecium urinary tract infection with associated bacteremia. She has also had cellulitis. RECOMMENDATIONS: 1. Change Lasix to oral. 2. The patient needs definitive evaluation with cardiac catheterization and coronary angiography. This was discussed with the patient and she very much wishes to go ahead and get this done during her hospitalization. Indication and potential hazards were reviewed, and she wishes to proceed. We will schedule cardiac catheterization for tomorrow a.m. cc: Eric Calvo MD
[2018-12-03] MEDS: SEROQUEL PO SCH (21:26)
[2018-12-04] MEDS: NORCO-5 PO PRN ×3 (00:20→09:28)
[2018-12-04] MEDS: DUONEB (A & A) INH SCH ×6 (03:39→23:30)
[2018-12-04] MEDS: PRILOSEC PO SCH ×2 (05:41→06:05)
[2018-12-04] MEDS: CLEOCIN PO SCH ×3 (05:42→20:48)
[2018-12-04 06:10] LABS: AGAP 10; BUN 18 mg/dL (8-22); CALCIUM 9.4 mg/dL (8.8-10.2); CHLORIDE 96 mmol/L (98-107); COSMO 282; CREATININE 0.8 mg/dL (0.5-0.9); ESTIMATED GFR > 60; GLUCOSE 103 mg/dL (70-104); POTASSIUM 4.1 mmol/L (3.5-5.1); SODIUM 140 mmol/L (136-145); TCO2 34 mmol/L (25-35)
[2018-12-04] MEDS: SYMBICORT 160/4.5 MICROGM INHALER INH SCH ×2 (07:29→19:35)
[2018-12-04] MEDS ORDERED: [UNRECOGNIZED DRUG - OTHER] ONE (07:46)
[2018-12-04] MEDS ORDERED: HEPARIN ONE (07:46)
[2018-12-04 07:52] LABS: PTT 43.1 Seconds (22.3-41.8)
--- NOTE | 2018-12-04 08:11 | EKG Report ---
Test Performed on : 12/04/2018 07:02:19 AM Test Reason : cardiac cath Blood Pressure : / mmHG Vent. Rate : 085 BPM Atrial Rate : 085 BPM P-R Int : 138 ms QRS Dur : 150 ms QT Int : 418 ms P-R-T Axes : 052 053 025 degrees QTc Int : 497 ms Normal sinus rhythm. Right bundle branch block Abnormal ECG When compared with ECG of 01-DEC-2018 17:54, premature atrial complexes. are no longer present Confirmed by Gerson ALCANTARA, Roger ([id number]) on 12/04/2018 8:43:32 AM
[2018-12-04] MEDS ORDERED: NS 100 ML ONE (08:18)
[2018-12-04] MEDS ORDERED: DEMEROL ONE (08:18)
[2018-12-04] MEDS ORDERED: NITROGLYCERIN ONE (08:18)
[2018-12-04] MEDS ORDERED: VERSED ONE (08:18)
[2018-12-04] MEDS ORDERED: CLAVE PUMP SET NO FILTER 12260 ONE (08:19)
[2018-12-04] MEDS ORDERED: CLAVE TWINSITE 32 IN 11959 ONE (08:19)
[2018-12-04] MEDS ORDERED: NS 1,000 ML ONE (08:19)
[2018-12-04 08:20] LABS: INR 1.01; PROTIME 14.1 Seconds (11.0-16.0)
--- NOTE | 2018-12-04 08:38 | Extremity Venous Study ---
PROCEDURE NAME: Venous U/S Bilateral Legs - 12/02/2018 REQUESTING PHYSICIAN: DR. Calvo/Dr. Weiner. INSEAMER: Thuy. INDICATION: Rule out DVT. EQUIPMENT: [employer] Vivid E9 ultrasound system with a 9 L-D transducer. FINDINGS: Images of bilateral lower extremity venous systems were obtained in both sagittal and transverse planes. Doppler was used to evaluate veins for spontaneity, phasicity, respiratory excursion, and digital augmentation. RESULTS: Right leg is amputated below the knee but no obvious superficial or deep venous thrombosis noted on this study. INTERPRETATION: Right lower extremity amputated below the knee, but no obvious superficial or deep venous thrombosis noted. cc: MD Eric Barboza MD
--- NOTE | 2018-12-04 09:05 | CARDIAC CATH REPORT ---
DATE: 12/04/2018 REQUESTING PHYSICIAN: Dr. Calvo The patient was brought to the cardiac semiconductor lab technician for a right and left heart catheterization for presumptive severe coronary heart disease and aortic stenosis. DESCRIPTION OF PROCEDURE: The patient was prepped and draped in sterile fashion. We gave her 1 dose of Versed 1 mg plus 1 dose of Demerol 25 mg for sedation. This appeared to be insufficient. She required more sedation, so we gave her a second dose of Versed 1 mg and a second dose of Demerol 25 mg. After that, she became almost unresponsive, and her oxygen saturation dropped. At that point, we chose to give her Narcan to counteract the effects of meperidine. After that, the patient became really agitated, and she was not able to cooperate with the procedure. I attempted to anesthetize the right femoral site, and I believe we only gave her 2 mL of subcutaneous lidocaine, and after that, the patient was really unable to withstand lying on the table. We had to cancel the procedure. She has been taken back to her room in a stable hemodynamic condition. RECOMMENDATIONS: Ms. Orta may not be a good candidate for invasive procedures at this point. We may have to focus on dealing with her other medical issues and perhaps at a subsequent date reconsider heart catheterization. cc: Manuel Evans MD
[2018-12-04] MEDS ORDERED: NARCAN ONE (09:21)
--- NOTE | 2018-12-04 09:21 | INFECTIOUS DISEASE PROGRESS NO ---
DATE: 12/04/2018 HISTORY OF PRESENT ILLNESS: The patient has cellulitis of the left leg. She also is complaining of right hip pain and on CT scan, it does indicate that she has cellulitis involving the gluteal fat on the right side more than the left side. This may be the cause of her pain. On chest x- ray, there is a possibility that there is a right lower lobe pneumonia and/or pulmonary edema. MEDICATIONS: The patient is receiving clindamycin orally for the third day in a row. PHYSICAL EXAMINATION: Vital Signs: Temperature is 98.3 degrees, pulse 83, respirations 17, blood pressure 129/81. General: This is an obese ill-appearing elderly female. She is in no acute distress currently. HEENT: She can hear my spoken words and see near objects. She does not have any white coating of her tongue. Neck: It does not hurt her to move her neck. Lungs: Clear to auscultation. Cardiovascular: Heart rate is regular with a systolic murmur. Abdomen: Soft and nontender. Extremities: The right hip area is not erythematous and is not tender. The patient's left leg is less erythematous than it had been previously. Neurologic: The patient is alert. She can move her extremities. There is no tremor. LAB AND RADIOLOGY: Creatinine-0.8. GFR->60. No CBC or radiology studies today. ASSESSMENT AND PLAN: The patient has left leg cellulitis. My plan is to continue clindamycin and to keep the foot of the patient's bed elevated by the manual catch. As far as her pain that she has in her right hip, it looks like this may be due to cellulitis in the gluteal fat. For now, I am going to continue clindamycin to treat both the cellulitis in the left leg and in the gluteal fat. COMORBIDITIES: The patient has chronic obstructive pulmonary disease, morbid obesity, chronic anxiety, gastroesophageal reflux disease with a history of aspiration, and congestive heart failure. cc: Dandre Galarza MD MTDD
[2018-12-04] MEDS: VICON-C PO SCH (09:26)
[2018-12-04] MEDS: SAVELLA PO SCH ×3 (09:26→20:48)
[2018-12-04] MEDS: TOPAMAX PO SCH ×2 (09:27→20:47)
[2018-12-04] MEDS: VITAMIN D PO SCH ×2 (09:27→20:47)
[2018-12-04] MEDS: LASIX PO SCH (09:27)
[2018-12-04] MEDS: ZYLOPRIM PO SCH (09:27)
[2018-12-04] MEDS: ASPIRIN PO SCH (09:27)
[2018-12-04] MEDS: LOPRESSOR PO SCH ×2 (09:27→20:47)
[2018-12-04] MEDS: MIRALAX PO SCH (09:27)
[2018-12-04] MEDS: TUMS PO SCH ×2 (09:27→20:47)
[2018-12-04] MEDS: IMDUR PO SCH (09:27)
[2018-12-04] MEDS ORDERED: NS 1,000 ML IV SCH (10:00)
--- NOTE | 2018-12-04 17:43 | PROGRESS NOTE ---
DATE: 12/04/2018 SUBJECTIVE: Ms. Orta was not able to go to the labor [employer] business representative. She was on the table and I had to give her Narcan. She passed out, had syncopal episode, pressure dropped, so they put her back, so she did not get her left after heart catheterization. OBJECTIVE: Vital Signs: Temperature is 97.9 degrees, pulse 79, respirations 17, blood pressure 137/71. HEENT: Pupils are equal and round. Lungs: Clear in all lung wright. Cardiovascular: Regular rhythm and rate without murmur or S3. Abdomen: Soft. Skin: Warm and dry. Urine output was 1500 mL from yesterday. So heart catheterization, taken back to the room. Stable hemodynamic condition. She was brought to the labor union business representative for presumptive severe coronary heart disease and aortic stenosis. The patient prepped and draped, gave her 1 dose of Versed, 1 mg +1 dose of Demerol 25 for sedation. It appeared insufficient, required more sedation. She had another mg of Versed and 2nd dose of Demerol 25 mg. At that time, she became almost unresponsive. Oxygen saturation dropped. Gave her Narcan to counteract the effects of meperidine. After that, the patient became really agitated and eventually moved her back here to the floor. She was resting comfortably when I saw her. Temperature 97.9 degrees, pulse 79, respirations 17, blood pressure 137/71. Lungs were clear. Breathing comfortably. Abdomen was soft. Skin was warm and dry. ASSESSMENT AND PLAN: 1. The patient with cellulitis of the leg. Complaining of right hip pain. CT scan seemed to indicate cellulitis involving the gluteal fat on the right side more than the left. So, continue clindamycin. This is the third day. 2. Acute on chronic congestive heart failure with well-preserved left ventricular ejection fraction. There is a question of whether it is coronary artery disease. Unable to get a heart catheterization and look at her coronaries. 3. Severe calcific aortic stenosis. 4. Elevated troponin, elevated CPK. Suspect could be related to myocardial strain in the setting of severe aortic stenosis associated with congestive heart failure. We stopped the daptomycin because the CK levels were high and those levels have come down. 5. Obesity. 6. Limited functional status. We are trying to think of her placement options. Continue physical therapy. 7. Hypertension. 8. Chronic obstructive pulmonary disease. 9. She had infectious process with Enterococcus faecium urinary tract infection associated with bacteremia which has been treated. REVIEW OF ORDERS: I do not see any change. Medications, I do not see any change. Labs unremarkable. cc: Kenneth Weiner MD
--- NOTE | 2018-12-04 20:20 | PROGRESS NOTE ---
DATE: 12/04/2018 SUBJECTIVE: The patient had difficulty tolerating sedation earlier today when cardiac catheterization procedure was pursued. Procedure was aborted. She denies chest discomfort or dyspnea. OBJECTIVE: Vital Signs: Blood pressure 125/54, heart rate 78, oxygen saturation 100% on nasal cannula oxygen at 4 L/minute. Neck: There is no significant jugular distention. Chest: Clear to auscultation. Cardiac: Reveals a regular rate and rhythm with grade 2-3/6 crescendo/decrescendo systolic murmur at the right upper sternal border and apex. No gallop could be appreciated. Extremities: Are without edema. LABORATORY DATA: Includes sodium 140, potassium 4.1, chloride 96, carbon dioxide 34, BUN 18, creatinine 0.8, glucose 103. IMPRESSION: 1. Recent acute on chronic congestive heart failure with preserved left ventricular ejection fraction. Patient is improved clinically with diuresis. 2. Severe calcific aortic stenosis. 3. Nonspecific elevation in troponin along with elevated CPK/CPK-MB on presentation. Suspect this potentially may be related to myocardial strain in the setting of severe aortic stenosis and associated congestive heart failure. Daptomycin may also be contributing to elevated CPK, but MB index was 4 which is mildly elevated, suggesting potentially related to cardiac etiology. She did not tolerate pursuit of cardiac catheterization today. 4. Obesity. 5. Limited functional status. 6. Hypertension. 7. Severe chronic obstructive pulmonary disease. 8. Recent infectious process with enterococcus faecium, urinary tract infection and associated bacteremia. She also had cellulitis. RECOMMENDATIONS: 1. At this point, continue medical management. 2. Conservative care overall for right now. May reconsider cardiac catheterization later as an outpatient after she improves overall. She still may potentially be a candidate for a TAVR procedure. This was discussed with her and she is very comfortable deferring cardiac catheterization for right now. cc: Eric Calvo MD
[2018-12-04] MEDS: SEROQUEL PO SCH (20:47)
[2018-12-05] MEDS: DUONEB (A & A) INH SCH ×5 (04:20→20:16)
[2018-12-05] MEDS: PRILOSEC PO SCH (06:17)
[2018-12-05] MEDS: CLEOCIN PO SCH ×3 (06:17→20:35)
[2018-12-05] MEDS: SYMBICORT 160/4.5 MICROGM INHALER INH SCH ×2 (08:00→20:16)
[2018-12-05] MEDS: MIRALAX PO SCH (08:57)
[2018-12-05] MEDS: TUMS PO SCH ×2 (08:58→20:35)
[2018-12-05] MEDS: LASIX PO SCH (08:58)
[2018-12-05] MEDS: LOPRESSOR PO SCH ×2 (08:58→20:36)
[2018-12-05] MEDS: TOPAMAX PO SCH ×2 (08:58→20:35)
[2018-12-05] MEDS: ASPIRIN PO SCH (08:58)
[2018-12-05] MEDS: SAVELLA PO SCH ×3 (08:59→20:36)
[2018-12-05] MEDS: VICON-C PO SCH (08:59)
[2018-12-05] MEDS: IMDUR PO SCH (08:59)
[2018-12-05] MEDS: ZYLOPRIM PO SCH (08:59)
[2018-12-05] MEDS: VITAMIN D PO SCH ×2 (08:59→20:35)
--- NOTE | 2018-12-05 09:42 | PROGRESS NOTE ---
DATE: 12/05/2018 SUBJECTIVE: Ms. Orta is feeling better today, eating her breakfast, breathing comfortably. Still very weak. They were not able to do the heart catheterization yesterday. She was on the table ready to go and got hypotensive and they had to give her some Narcan. OBJECTIVE: Vital signs: Temperature 98 degrees, pulse 89, respirations 15, blood pressure 132/67. HEENT: Pupils are equal round. Lungs: Clear in all lung wright. Cardiovascular: Regular rhythm and rate without murmur or S3. Abdomen: Soft. Skin: Warm and dry. Urine output 2800 mL. ASSESSMENT AND PLAN: 1. Recent acute on chronic congestive heart failure, preserved left ventricular ejection fraction. Has responded to diuresis and doing better. 2. Severe calcific aortic stenosis. 3. Nonspecific elevation of troponin, elevated CK on presentation, potentially related to myocardial strain in setting of severe aortic stenosis. Unable to do a heart catheterization. She was on daptomycin which we felt was contributing to the elevation in CK, and that has been changed. 4. Obesity. 5. Limited functional status. 6. Hypertension. 7. Severe chronic obstructive pulmonary disease. 8. Recent infectious process with Enterococcus faecium urinary tract infection associated with bacteremia. Continue current orders. CURRENT ORDERS: Patient on Cleocin 300 mg q.8 hours, aspirin 81 mg a day, budesonide formoterol 2 puffs b.i.d., Lasix 40 mg a day, hydrocodone 5 mg 1 q.4 hours p.r.n., isosorbide mononitrate 30 mg daily, Prilosec 40 mg a day, MiraLAX 17 g daily, Seroquel 400 mg at bedtime, Topamax 25 mg b.i.d. We will look for rehab as far as discharge planning. Continue physical therapy while she is here. cc: Kenneth Weiner MD
[2018-12-05] MEDS: NORCO-5 PO PRN (13:18)
[2018-12-05] MEDS: SEROQUEL PO SCH (20:35)
[2018-12-06] MEDS: DUONEB (A & A) INH SCH ×7 (00:30→23:15)
[2018-12-06] MEDS: NORCO-5 PO PRN ×5 (01:56→21:13)
[2018-12-06] MEDS: PRILOSEC PO SCH (07:02)
[2018-12-06] MEDS: CLEOCIN PO SCH ×3 (07:02→21:13)
[2018-12-06] MEDS: SYMBICORT 160/4.5 MICROGM INHALER INH SCH ×2 (07:37→19:15)
[2018-12-06] MEDS: ASPIRIN PO SCH (08:24)
[2018-12-06] MEDS: LASIX PO SCH (08:24)
[2018-12-06] MEDS: SAVELLA PO SCH ×3 (08:24→21:13)
[2018-12-06] MEDS: IMDUR PO SCH (08:24)
[2018-12-06] MEDS: TOPAMAX PO SCH ×2 (08:24→21:13)
[2018-12-06] MEDS: TUMS PO SCH ×2 (08:24→21:13)
[2018-12-06] MEDS: ZYLOPRIM PO SCH (08:24)
[2018-12-06] MEDS: VITAMIN D PO SCH ×2 (08:24→21:13)
[2018-12-06] MEDS: LOPRESSOR PO SCH ×2 (08:24→21:13)
[2018-12-06] MEDS: MIRALAX PO SCH (08:25)
[2018-12-06] MEDS: VICON-C PO SCH (10:00)
--- NOTE | 2018-12-06 15:42 | PROGRESS NOTE ---
DATE: 12/06/2018 SUBJECTIVE: Ms. Orta is doing much better. Breathing comfortably. Still uncomfortable in her back and still very weak. OBJECTIVE: Temperature 97.9 degrees, pulse 76, respirations 16, blood pressure 118/57. Pupils are equal and round. Lungs are clear in all lung wright. Cardiovascular Examination: Regular rhythm and rate without murmur or S3. Abdomen is soft. Skin is warm and dry. Urine output 900 mL. ASSESSMENT AND PLAN: 1. Recent acute on chronic congestive heart failure, preserved left ventricular ejection fraction that has responded to diuresis. 2. Severe calcific aortic stenosis. 3. Elevation of troponin, elevated CK on presentation. Unable to go through with heart catheterization. Suspect some underlying coronary artery disease. 4. Obesity. 5. Limited functional status because of her size. 6. Hypertension. 7. Severe chronic obstructive pulmonary disease. 8. General weakness, deconditioning. Continue physical therapy. 9. Infectious process. She had Enterococcus faecium urinary tract infection associated with bacteremia. We are looking for rehab positioning. 10. Looking over her orders, I do not see any change. Lab unremarkable. cc: Kenneth Weiner MD
[2018-12-06] MEDS: SEROQUEL PO SCH (21:13)
[2018-12-07] MEDS: DUONEB (A & A) INH SCH ×6 (03:17→23:30)
[2018-12-07] MEDS: PRILOSEC PO SCH (06:16)
[2018-12-07] MEDS: NORCO-5 PO PRN (06:17)
[2018-12-07] MEDS: CLEOCIN PO SCH ×3 (06:17→20:30)
[2018-12-07] MEDS: SYMBICORT 160/4.5 MICROGM INHALER INH SCH ×2 (07:25→19:30)
[2018-12-07] MEDS: VITAMIN D PO SCH ×2 (10:02→20:30)
[2018-12-07] MEDS: VICON-C PO SCH (10:02)
[2018-12-07] MEDS: ASPIRIN PO SCH (10:02)
[2018-12-07] MEDS: ZYLOPRIM PO SCH (10:02)
[2018-12-07] MEDS: TOPAMAX PO SCH ×2 (10:02→20:30)
[2018-12-07] MEDS: LASIX PO SCH (10:02)
[2018-12-07] MEDS: IMDUR PO SCH (10:02)
[2018-12-07] MEDS: TUMS PO SCH ×2 (10:02→20:30)
[2018-12-07] MEDS: MIRALAX PO SCH (10:02)
[2018-12-07] MEDS: SAVELLA PO SCH ×3 (10:02→20:37)
[2018-12-07] MEDS: LOPRESSOR PO SCH ×2 (10:05→20:30)
--- NOTE | 2018-12-07 11:44 | PROGRESS NOTE ---
DATE: 12/07/2018 SUBJECTIVE: Ms. Orta states she is feeling somewhat better today. She is breathing comfortably. She still states that she has pain with movement. She states she has not been out of bed. OBJECTIVE: Vital Signs: Blood pressure is 111/48, with a heart rate of 77, respirations 16, temperature 98.1 degrees oral, with O2 saturations of 94-96% on 3 L nasal cannula. Cardiovascular: Regular rate and rhythm. No murmur. S1 and S2 are appreciated. She has no lower extremity edema. Peripheral pulses are palpable x4 extremities. Calves are nontender. Pulmonary: Breath sounds are clear with no increased work of breathing noted. Chest wall rises and falls symmetrically with respiration. Gastrointestinal: Abdomen is soft, nontender, nondistended, with bowel sounds in all 4 quadrants. : Ba is patent to bedside bag with clear yellow urine draining. ASSESSMENT AND PLAN: 1. Acute on chronic congestive heart failure with preserved left ventricular ejection fraction that has responded to diuresis. 2. Severe calcific aortic stenosis. 3. Elevation of troponin with elevated CK at presentation but she is unable to undergo heart catheterization at this time. Cardiology is following. 4. Limited functional status due to size. 5. Hypertension. 6. Severe chronic obstructive pulmonary disease. 7. Generalized weakness and deconditioning. Will continue physical therapy. 8. Infectious process. She has Enterococcus faecium urinary tract infection associated with bacteremia. 9. Disposition. Rehabilitation is pending. Dictated by SAMUEL Fung for Kenneth Weiner MD cc: SAMUEL Fung MD
--- NOTE | 2018-12-07 14:22 | DISCHARGE SUMMARY ---
ADMISSION DATE: 11/30/2018 DISCHARGE DATE: 12/07/2018 CONSULTATIONS: 1. Dr. Dandre Galarza, Infectious Disease. 2. Dr. Eric Calvo, Cardiology. DIAGNOSTICS: 1. Chest x-ray revealed lungs well expanded. No change in left-sided PICC line. No cardiomegaly. There are increased interstitial markings in the mid and lower lungs similar to prior studies. No consolidation. 2. Right hip x-ray revealed no evidence of acute bony disease. No fracture or dislocation. 3. Echocardiogram limited revealed normal LV chamber with mild concentric left ventricular hypertrophy. Estimated left ventricular ejection fraction appears to be at least 60% with no regional wall motion abnormalities. Doppler suggests grade 1 left ventricular diastolic dysfunction. No pericardial effusion. 4. Pulmonary arteriogram revealed negative pulmonary embolism, cardiomegaly, mild pulmonary edema versus upper lobe pneumonia, stable compared to 11/16/2018. 5. Bilateral lower extremity Doppler revealed right lower extremity amputated below the knee. No obvious superficial or deep vein thrombosis noted. 6. CT of the pelvis without contrast revealed edema or cellulitis in the subcutaneous gluteal fat on the right more than left. 7. 12/04/2018 cardiac cath. 8. Microbiology: Blood cultures revealed no growth after 5 days. 9. Urine culture revealed no growth. 10. Sputum culture revealed normal winter. HOSPITAL COURSE: Ms. Orta presented to the emergency room complaining of shortness of breath and weakness. She was found to be in diastolic heart failure exacerbation with resolution after diuresis. Troponin's and CPK were elevated. Dr Galarza felt the CPK was elevated secondary to having been on Cubicin which he discontinued and changed to clindamycin. CPK has decreased. She was evaluated by Cardiology,who attempted a heart catheterization on 12/04. The patient became almost unresponsive secondary to sedation. O2 sats dropped. She was given Narcan, and became agitated and could not cooperate with the procedure. Therefore, the procedure was canceled. After cardiology discussed with the patient, they have recommended that she continue medical management and reconsider cardiac cath on an outpatient basis. Physical Therapy felt that she would benefit from inpatient rehab. DISCHARGE VITAL SIGNS: Blood pressure is 137/70, heart rate of 83, respirations 15, temperature 98.1 degrees oral with O2 saturation 100% on 3 L nasal cannula. DISCHARGE PHYSICAL EXAMINATION: Cardiovascular: Regular rate and rhythm. S1 and S2 are appreciated. She does have 2-3/6 systolic murmur at the right upper sternal border. Extremities: She has no lower extremity edema. Bilateral calves are nontender to palpation. Pulmonary: Breath sounds are clear with no increased work of breathing noted. Gastrointestinal: Abdomen is soft, nontender, and nondistended. Bowel sounds in all 4 quadrants. DISCHARGE MEDICATIONS: 1. DuoNeb q.4 hours p.r.n. wheezing. 2. Allopurinol 100 mg p.o. daily. 3. Aspirin 81 mg p.o. daily. 4. Symbicort 160/4.5 two puffs b.i.d. 5. Tums 500 mg p.o. b.i.d. 6. Vitamin D 1000 units p.o. b.i.d. 7. Clindamycin 300 mg p.o. q.8 hours for 8 days with her last dose being 12/16. 8. Lasix 40 mg p.o. daily. 9. Revloc 5 q.4 hours p.r.n. 10. Imdur 30 mg p.o. daily. 11. Lopressor 25 mg p.o. q.12 hours. 12. Savella 50 mg p.o. at 9:00, 3:00 and 9:00. 13. Prilosec 40 mg p.o. daily. 14. MiraLAX 17 g p.o. daily p.r.n. constipation. 15. Seroquel 400 mg p.o. at bedtime. 16. Topamax 25 mg p.o. b.i.d. 17. Icar-C 1 p.o. daily. DISCHARGE INSTRUCTIONS: 1. She needs to follow up with Dr. Juanito Calvo in Cardiology on discharge from rehab. 2. She is being discharged in transfer to rehab in stable condition. TIME SPENT: This is a greater than 30 minute discharge. Dictated by SAMUEL Fung for Kenneth Weiner MD cc: SAMUEL Fung MD [facility]
[2018-12-07] MEDS ORDERED: FLEET MINERAL OIL ENEMA PR ONE (15:28)
[2018-12-07] MEDS ORDERED: [UNRECOGNIZED DRUG - OTHER] PR ONE (15:28)
[2018-12-07] MEDS ORDERED: FLEET ENEMA PR ONE (16:00)
[2018-12-07] MEDS: SEROQUEL PO SCH (20:30)
[2018-12-08 00:15] VITALS: BP 101/56
== END 2018-12-08 01:23 | DRG 292 ==
LOC: ED 12:24 → SUATTDRO 21:03 → EDIPHOLD 21:03 → 3S 12-01 13:54 → 3N 12-05 17:49
PROVIDERS: ATTEND Emergency Medicine
CPT/HCPCS: 51702; 71010; 71045; 71275; 72192; 73500; 73501; 80048; 80053; 82550; 82553; 83605; 83735; 83880; 84145; 84443; 84484; 85025; 85610; 85730; 87040; 87070; 87088; 87205; 93005; 93010; 93306; 93308; 93460; 93970; 94640; 94761; 96365; 96372; 96375; 96376; 97110; 97162; 97167; 97530; 99284; 99285; A9270; J0878; J1644; J1650; J1940; J2175; J2250; J2310; J7030; J7040; Q9967

== ENCOUNTER 2018-12-29 13:00 | Inpatient (IN) ==
--- NOTE | 2018-12-29 13:49 | Diag Imaging Result Doc PS360 ---
EXAM: CHEST-1 VIEW 12/29/2018 HISTORY: sepsis protocol TECHNIQUE: Erect AP portable at 1344 COMMENT: There is improvement in the interstitial pulmonary edema present on 12/03/2018. The heart size also appears smaller. IMPRESSION: Improved pulmonary edema and cardiomegaly. Electronically signed by Dick Neumann 12/29/2018 1:47 PM
[2018-12-29 14:38] LABS: URINE SOURCE CLEAN CATCH
[2018-12-29 14:43] LABS: HEMATOCRIT 35.8 % (37.0-47.0); MCH 28.2 PG (27-31); MCHC 30.7 g/dL (33-37); MCV 91.8 FL (81-99); MPV 11.6 FL (7.4-10.4); PLT 294 X1000 (130-400); RDW 18.1 % (11.5-14.5); WBC 15.12 X1000 (4.8-10.8)
[2018-12-29 14:44] LABS: BASO# 0.03 X1000 (0.0-0.2); BASO% 0.2 % (0.0-0.8); EOS# 0.07 X1000 (0.0-0.7); EOS% 0.5 % (0.0-10.0); IMM GRAN# 0.06 X1000 (0.0-0.04); IMM GRAN% 0.4 % (0.0-0.5); LYMPH# 1.75 X1000 (1.2-3.4); LYMPH% 11.6 % (20.5-51.1); MONO# 0.92 X1000 (0.11-0.59); MONO% 6.1 % (1.7-9.3); NEUT# 12.29 X1000 (1.4-6.5); NEUT% 81.2 % (42.2-75.2)
--- NOTE | 2018-12-29 14:50 | Diag Imaging Result Doc PS360 ---
EXAM: CT HEAD/C-SPINE W/O CONTRAST 12/29/2018 HISTORY: fall TECHNIQUE: This exam was performed using automated exposure control, adjustment of mA or kV according to patient size, and/or use of iterative reconstruction technique. COMMENT: There is no evidence of mass effect, bleed, or abnormal extra-axial fluid collection. There is a small lacune in the subcortical white matter of the right frontal lobe just anterior to the sylvian fissure. The calvarium is intact. The visualized paranasal sinuses are clear. Cervical spine: There is severe degenerative disc disease at the C3-4, C4-5, C5-6, C6-C7, and C7-T1 levels. The latter levels appear to be fused. There is posterior osteophyte formation at C3-4 and C5-6 which may be associated with spinal stenosis. This may also be present at C6-7. The appearance has not changed appreciably since the previous examination of 11/17/2018. IMPRESSION: No evidence of acute intracranial disease. Severe degenerative disc disease with multilevel spinal stenosis. No evidence of acute bony abnormality. Electronically signed by Dick Neumann 12/29/2018 2:48 PM
[2018-12-29 14:54] LABS: INR 0.99; PROTIME 13.9 Seconds (11.0-16.0); PTT 27.4 Seconds (22.3-41.8)
--- NOTE | 2018-12-29 15:00 | Diag Imaging Result Doc PS360 ---
EXAM: THORACIC SPINE HISTORY: fall TECHNIQUE: AP and lateral, three views COMPARISON: 11/16/2018 FINDINGS: Mild scoliosis with degenerative changes throughout the thoracic spine. No compression fracture. No subluxation. The appearance is similar to the prior study. IMPRESSION: No acute fracture. Electronically signed by Getachew Caro 12/29/2018 2:57 PM
[2018-12-29 15:01] LABS: BILIRUBIN URINE NEGATIVE (NEGATIVE); BLOOD URINE MODERATE (NEGATIVE); COLOR YELLOW; GLUCOSE URINE NEGATIVE (NEGATIVE); KETONE URINE NEGATIVE (NEGATIVE); LEUKOCYTES URINE MODERATE (NEGATIVE); NITRITE URINE NEGATIVE (NEGATIVE); PH URINE 5.5; PROTEIN URINE TRACE mg/dL (NEGATIVE); SP GRAVITY URINE 1.015; TURBIDITY URINE HAZY (CLEAR); UROBILINOGEN URINE NORMAL (NORMAL)
[2018-12-29 15:02] LABS: UR EPITHELIAL CELLS <10 /HPF (<10); URINE BACTERIA 4+ /HPF; URINE RBC <10 /HPF (<10)
--- NOTE | 2018-12-29 15:04 | Diag Imaging Result Doc PS360 ---
EXAM: LUMBAR SPINE 2-VIEWS HISTORY: fall TECHNIQUE: AP and lateral, two views COMPARISON: 11/16/2018 FINDINGS: Mild scoliosis. The bones are osteopenic. Prominent degenerative changes. Subluxation of L5 on S1. Questionable minimal compression to the L2 and L3 vertebra. IMPRESSION: Questionable minimal new compression deformities to the L2 and L3 vertebra. This appearance may be due to the angulation of the films. A follow-up MRI or nuclear medicine bone scan as an outpatient may be beneficial if clinical concern persists. Electronically signed by Getachew Caro 12/29/2018 3:01 PM
[2018-12-29 15:10] LABS: AGAP 15; ALB/GLOB RATIO 0.9; ALBUMIN 3.4 g/dL (3.5-5.0); ALKALINE PHOSPHATASE 208 U/L (32-104); BUN 25 mg/dL (8-22); CALCIUM 9.3 mg/dL (8.8-10.2); CHLORIDE 97 mmol/L (98-107); COSMO 285; CREATININE 0.8 mg/dL (0.5-0.9); ESTIMATED GFR > 60; GLUCOSE 84 mg/dL (70-104); GOT 47 U/L (10-30); GPT 27 U/L (10-36); POTASSIUM 4.2 mmol/L (3.5-5.1); SODIUM 141 mmol/L (136-145); TCO2 29 mmol/L (25-35); TOTAL BILIRUBIN 0.46 mg/dL (0.20-1.00); TOTAL PROTEIN 7.2 g/dL (6.3-8.3)
[2018-12-29 15:14] LABS: CK PROFILE 494 U/L (24-173)
[2018-12-29 15:16] LABS: URINE CRYSTALS CA OXALATE PRESENT
[2018-12-29 15:32] LABS: CK INDEX 2.7 (0.0-2.5); CK-MB 13.38 ng/mL (0.0-5.0)
[2018-12-29] MEDS ORDERED: LEVAQUIN 500 MG/D5W 500 MG/100 ML IVPB IV ONE (15:58)
[2018-12-29] MEDS ORDERED: AZACTAM 1 GM in NS 50 ML IV ONE (17:00)
--- NOTE | 2018-12-29 18:36 | HISTORY AND PHYSICAL ---
PRIMARY CARE PHYSICIAN: Dr. Crawford. CHIEF COMPLAINT: Recurrent falls and urinary tract infection. HISTORY OF PRESENT ILLNESS: This is a 78-year-old female with past medical history of COPD, morbid obesity, hypertension, hypothyroidism who was brought to the emergency department because she was complaining of bilateral shoulder pain, neck pain, and back pain post fall from wheelchair. Patient uses motorized wheelchair for last 4 years. She reports that she went to transfer out and a blanket was there and wheelchair caused her to fall on the floor so the patient hit her back and has pain in the shoulder, neck, and back. Evaluated in the ER. She was found to have an elevated white cell count with urinalysis and indicated urinary tract infection. So far, head and cervical spine CT and thorax spine x-ray and lumbar spine x-ray apparently unremarkable except in the lumbar spine, questionable minimal new compression deformity in the left L2 and L3 vertebra. The patient is going to be admitted for further evaluation and treatment. PAST MEDICAL HISTORY: 1. COPD with chronic hypoxemic respiratory failure. Patient used oxygen at home 4 L/minute. 2. Morbid obesity. 3. Hypertension. 4. Hypothyroidism. 5. Dyslipidemia. 6. Fibromyalgia. 7. Irritable bowel syndrome. 8. Chronic anxiety. 9. GERD with recurrent aspiration. PAST SURGICAL HISTORY: 1. 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 2. Left knee surgery. 3. Bronchoscopy performed 2012. 4. Colonoscopy in 2016 that showed internal and external hemorrhoids. 5. Cystoscopy with bilateral retrograde ureteropyelogram performed by Dr. Chiu secondary to hematuria. SOCIAL HISTORY: Patient lives alone. She uses a motorized chair for last 4 years. She does not smoke but she used to but she quit several years ago. No alcohol. No drugs. FAMILY HISTORY: Positive for coronary artery disease. ALLERGIES: Patient is allergic to Abilify, Ultram, codeine, Advair, PARVIN inhibitor, penicillin. REVIEW OF SYSTEMS: Eleven systems were reviewed and all symptoms are related to H and P. PHYSICAL EXAMINATION: VITAL SIGNS: Temperature 97.7 degrees, heart rate 107, respiratory 22, blood pressure 175/103, O2 saturation 97% on 2 L nasal cannula. GENERAL: This is a chronically ill-appearing, 78-year-old female lying in bed in no acute distress. HEENT: Head is normocephalic, atraumatic. Pupils equal, round, reactive to light and accommodation. Anicteric sclerae and pale conjunctivae. NECK: No JVD noted. No carotid bruits. No lymphadenopathy. No thyromegaly. CARDIOVASCULAR: S1, S2 heard. No murmurs, gallops, or rubs. Regular rate and rhythm. RESPIRATORY: Decreased breath sounds globally. Mild prolonged expiratory phase. The patient is not using any accessory muscles or having work of breathing. ABDOMEN: Soft, nontender to palpation. Bowel sounds present. No organomegaly. EXTREMITIES: Right [id number]-[id number] amputation. Left lower extremity with trace edema with some redness around the leg back but there is no warmth or painful to palpation. It looks like a chronic venous stasis. NEUROLOGICAL: Patient alert and oriented x3. Moves 4 extremities. LABORATORY DATA: White cell count 15.4, hemoglobin 11.0, hematocrit 35.8, platelets 294,000. BMP is unremarkable. Alkaline phosphatase 208. Troponin 0.028. The urine shows moderate blood with moderate leukocytes, 10 to 20 white cell count. ASSESSMENT AND PLAN: 1. Urinary tract infection. Patient has elevated white cell count and she also noticed some burning on urination so, she had a urinary tract infection. In that regard, considering her history of allergy to penicillin, we are going to start this patient on Azactam 1 g IV q.8 h. We will continue to check CBC daily to make sure that leukocytosis is resolving. 2. Chronic obstructive pulmonary disease. The patient is not on any exacerbation. We will provide breathing treatments as needed only. 3. Recurrent falls. We are going to consult physical therapy. The patient definitely will need to go back to rehab facility or she may need to stay in the detention considering that she lives alone and she is having multiple falls according to the patient. 4. History of fibromyalgia. Will continue home medications. 5. Anemia of chronic disease. We will continue checking CBC daily. 6. Gastroesophageal reflux disease. We will continue with Protonix. 7. History of hypertension. At this point we are going to restart home medications and see how this patient does. cc: Vivek Marie MD MTDD
[2018-12-29] MEDS: DUONEB (A & A) INH PRN (19:20)
[2018-12-29] MEDS: SYMBICORT 160/4.5 MICROGM INHALER INH SCH (19:30)
[2018-12-29] MEDS ORDERED: ZOFRAN IV PRN (19:51)
[2018-12-29] MEDS ORDERED: MIRALAX PO PRN (19:51)
[2018-12-29] MEDS ORDERED: MICRO-K PO PRN (19:51)
[2018-12-29] MEDS: TUMS PO SCH (23:46)
[2018-12-29] MEDS: NORCO-5 PO PRN (23:46)
[2018-12-29] MEDS: VITAMIN D PO SCH (23:46)
[2018-12-29] MEDS: NEURONTIN PO SCH (23:47)
[2018-12-29] MEDS: LOPRESSOR PO SCH (23:47)
[2018-12-29] MEDS: TOPAMAX PO SCH (23:47)
[2018-12-29] MEDS: LOVENOX SUBQ SCH (23:48)
[2018-12-29] MEDS: NS 1,000 ML IV SCH (23:48)
[2018-12-29] MEDS: SEROQUEL PO SCH (23:53)
[2018-12-30] MEDS: SYMBICORT 160/4.5 MICROGM INHALER INH SCH ×2 (03:57→20:08)
[2018-12-30] MEDS: AZACTAM 1 GM in NS 50 ML IV SCH ×3 (05:04→20:13)
[2018-12-30 06:57] LABS: BASO# 0.02 X1000 (0.0-0.2); BASO% 0.2 % (0.0-0.8); EOS# 0.36 X1000 (0.0-0.7); EOS% 4.5 % (0.0-10.0); HEMATOCRIT 31.1 % (37.0-47.0); HEMOGLOBIN 9.4 g/dL (12.0-16.0); IMM GRAN# 0.03 X1000 (0.0-0.04); IMM GRAN% 0.4 % (0.0-0.5); LYMPH# 1.92 X1000 (1.2-3.4); LYMPH% 23.9 % (20.5-51.1); MCHC 30.2 g/dL (33-37); MCV 92.6 FL (81-99); MONO% 6.2 % (1.7-9.3); MPV 10.9 FL (7.4-10.4); NEUT% 64.8 % (42.2-75.2); PLT 263 X1000 (130-400); RBC 3.36 XMIL (4.2-5.4); RDW 18.4 % (11.5-14.5); WBC 8.03 X1000 (4.8-10.8)
[2018-12-30 07:16] LABS: AGAP 8; BUN 19 mg/dL (8-22); CALCIUM 8.6 mg/dL (8.8-10.2); CHLORIDE 103 mmol/L (98-107); COSMO 285; CREATININE 0.7 mg/dL (0.5-0.9); ESTIMATED GFR > 60; GLUCOSE 91 mg/dL (70-104); POTASSIUM 3.6 mmol/L (3.5-5.1); SODIUM 142 mmol/L (136-145); TCO2 31 mmol/L (25-35)
[2018-12-30] MEDS ORDERED: PRILOSEC PO SCH (09:00)
[2018-12-30] MEDS: ICAR-C PO SCH (09:08)
[2018-12-30] MEDS: IMDUR PO SCH (09:08)
[2018-12-30] MEDS: TOPAMAX PO SCH ×2 (09:08→20:14)
[2018-12-30] MEDS: ASPIRIN PO SCH (09:08)
[2018-12-30] MEDS: VITAMIN D PO SCH ×2 (09:08→20:15)
[2018-12-30] MEDS: LASIX PO SCH (09:08)
[2018-12-30] MEDS: TUMS PO SCH ×2 (09:09→20:15)
[2018-12-30] MEDS: NEURONTIN PO SCH ×3 (09:09→20:15)
[2018-12-30] MEDS: ZYLOPRIM PO SCH (09:09)
[2018-12-30] MEDS: LOPRESSOR PO SCH ×3 (09:09→20:19)
[2018-12-30] MEDS: PRILOSEC PO SCH (09:15)
[2018-12-30] MEDS: NS 1,000 ML IV SCH ×2 (09:16→15:06)
--- NOTE | 2018-12-30 09:23 | EKG Report ---
Test Performed on : 12/29/2018 1:15:11 PM Test Reason : FALL Blood Pressure : / mmHG Vent. Rate : 106 BPM Atrial Rate : 107 BPM P-R Int : 144 ms QRS Dur : 134 ms QT Int : 368 ms P-R-T Axes : 068 064 023 degrees QTc Int : 488 ms Undetermined rhythm Right bundle branch block Abnormal ECG When compared with ECG of 04-DEC-2018 07:02, Current undetermined rhythm precludes rhythm comparison, needs review Unconfirmed Result
--- NOTE | 2018-12-30 13:13 | PROGRESS NOTE ---
DATE: 12/30/2018 SUBJECTIVE: The patient reports feeling fine. Denies any fever or chills. OBJECTIVE: Vital Signs: Temperature 98.0 degrees, heart rate 75, respiratory rate 12, blood pressure 126/63, O2 saturation 100% on 5 L nasal cannula. General: This is a chronically ill- appearing, 78-year-old, female, lying in bed in no acute distress. Cardiovascular: S1, S2 heard. No murmurs, gallops, or rubs. Regular rate and rhythm. Respiratory: Decreased breath sounds globally. Mild prolonged expiratory phase. The patient is not using any accessory muscles or having work of breathing. Abdomen: Soft. Nontender to palpation. Bowel sounds present. No organomegaly. Extremities: Right [id number]-ptm-jpik amputation noted. Left lower extremity with trace edema with some redness around the leg that looks like chronic venous stasis. Neurological: The patient is alert and oriented x3. Moves all 4 extremities. LABORATORY DATA: White cell count 8.08, hemoglobin 9.4, hematocrit 31.1, platelets 263,000. Normal BMP. ASSESSMENT AND PLAN: 1. Urinary tract infection. Clinically, the patient feels better, and also white cell count is back to normal. The patient is on Azactam 1 gram intravenously every 8 hours. Will continue with the same management. Will continue checking CBC daily. 2. Chronic obstructive pulmonary disease exacerbation. I will provide breathing treatment as needed only. She is not in any exacerbation. 3. Recurrent falls. Physical Therapy has been consulted. Will need to send this patient to rehab facility. 4. History of fibromyalgia. Will continue home medications. 5. Anemia of chronic disease. Hemoglobin is stable. Will check CBC daily. 6. Gastroesophageal reflux disease. Will continue Protonix. 7. Hypertension. Blood pressure is under control. Will continue with the same management. 8. Disposition. At this point, I think this patient is getting better. Probably in 1 to 2 days, she will be medically stable to be sent to rehab facility whenever we get a bed for her. cc: Vivek Marie MD
[2018-12-30] MEDS: SEROQUEL PO SCH (20:14)
[2018-12-30] MEDS: NORCO-5 PO PRN (20:15)
[2018-12-30] MEDS: LOVENOX SUBQ SCH (20:15)
[2018-12-30] MEDS: DUONEB (A & A) INH PRN (22:29)
[2018-12-31] MEDS: AZACTAM 1 GM in NS 50 ML IV SCH ×3 (03:22→22:34)
[2018-12-31] MEDS: NS 1,000 ML IV SCH ×3 (03:24→11:57)
[2018-12-31] MEDS: SYMBICORT 160/4.5 MICROGM INHALER INH SCH ×3 (06:32→19:40)
[2018-12-31 07:27] LABS: BASO# 0.01 X1000 (0.0-0.2); BASO% 0.2 % (0.0-0.8); EOS# 0.34 X1000 (0.0-0.7); EOS% 6.2 % (0.0-10.0); HEMATOCRIT 27.8 % (37.0-47.0); HEMOGLOBIN 8.2 g/dL (12.0-16.0); IMM GRAN# 0.02 X1000 (0.0-0.04); IMM GRAN% 0.4 % (0.0-0.5); LYMPH% 27.2 % (20.5-51.1); MCH 27.8 PG (27-31); MCHC 29.5 g/dL (33-37); MCV 94.2 FL (81-99); MONO# 0.42 X1000 (0.11-0.59); MONO% 7.6 % (1.7-9.3); MPV 11.1 FL (7.4-10.4); NEUT# 3.22 X1000 (1.4-6.5); NEUT% 58.4 % (42.2-75.2); PLT 244 X1000 (130-400); RBC 2.95 XMIL (4.2-5.4); RDW 18.6 % (11.5-14.5); WBC 5.51 X1000 (4.8-10.8)
[2018-12-31] MEDS: DUONEB (A & A) INH PRN ×4 (07:37→19:39)
[2018-12-31 07:48] LABS: AGAP 8; BUN 16 mg/dL (8-22); CALCIUM 7.6 mg/dL (8.8-10.2); CHLORIDE 104 mmol/L (98-107); COSMO 289; CREATININE 0.7 mg/dL (0.5-0.9); ESTIMATED GFR > 60; GLUCOSE 88 mg/dL (70-104); POTASSIUM 3.5 mmol/L (3.5-5.1); SODIUM 145 mmol/L (136-145); TCO2 33 mmol/L (25-35)
--- NOTE | 2018-12-31 08:07 | PROVIDER DOCUMENTATION ---
This chart was entered by Cecilia Huff Scribe, acting as scribe for Randy Osuna MD. HPI-Musculoskeletal Pain/Inj - GENERAL Chief Complaint: Fall Stated Complaint: FALL Time Seen by Provider: 12/29/18 13:54 Source: patient, EMS - HX OF PRESENT ILLNESS-MUSKULOSKELTAL Nature of Presenting Problem: 78 yowf presents to the ed with c/o bilateral shoulder pain, neck pain and back pain post fall from wheelchair. pt sts went to transfer and the blanket was in her wheelcahir and caused her to fall to the floor. pt sts hit back and head and now has pain in shoulder neck and back. pt is a BKRA Severity in ED: moderate Onset/Duration: just prior to arrival Timing: still present, intermittent Any recent injury?: Yes Locality of Occurance: Home Similar Symptoms Previously?: Yes Recently seen or treated by another doctor?: No - FALL INJURY Location of Pain/Injury: reports: neck, back, other (bilateral shoulders) Reason for Fall: reports: slipped Symptoms prior to fall:: reports: none Loss of Consciousness: no loss of consciousness Injury Associated Symptoms: reports: back/neck pain. denies: chest pain, dizziness, nausea, shortness of breath, snap/crack/pop sensation - BACK & NECK PAIN/INJURY Back/Neck Pain Location: reports: C-spine, paraspinous muscles Back/Neck Pain Radiation: reports: shoulders Context / Method of Injury: reports: fall (slid out of wheelchair due to a blanket) History of Chronic Neck or Back Pain?: No Review of Systems - Adult - REVIEW OF SYSTEMS - ADULT Constitutional: denies: chills, fever Eyes: reports: no symptoms reported Ears, Nose, Mouth & Throat: reports: no symptoms reported Cardiovascular: reports: edema. denies: chest pain, palpitations, syncope Respiratory: reports: see HPI, cough, wheezing. denies: shortness of breath Gastrointestinal: denies: diarrhea, nausea, vomiting Genitourinary: reports: no symptoms reported Musculoskeletal: reports: see HPI, back pain, joint pain (bilateral shoulders), muscle aches, neck pain Integumentary: reports: no symptoms reported Neurological: denies: dizziness/vertigo, headache/migraines Psychiatric: reports: no symptoms reported Endocrine: reports: no symptoms reported Hematologic/Lymphatic: reports: no symptoms reported Allergic/Immunologic: reports: no symptoms reported All Other Systems: Reviewed and Negative Past History - Adult - PAST MEDICAL HISTORY-ADULT Review of Records: reports: Nursing Assessment Review, Medications Reviewed Major Childhood Illnesses: reports: denies history Cardiovascular: reports: CHF, HTN Respiratory: reports: asthma, COPD, sleep apnea, other (orthopnea) Gastrointestinal: reports: GERD Obstetrical/Gynecological: reports: denies history Genitourinary: reports: other (renal disease) Musculoskeletal: reports: denies history Neurological: reports: TIA Psychiatric: reports: depression Endocrine/Immune: reports: thyroid disorder Other Conditions: reports: denies history - PRIOR SURGERIES/PROCEDURES Surgical/Procedure History: reports: appendectomy (right BKA, thyroid, mastoid sx), hysterectomy, other (Right BKA) - PRIOR HOSPITALIZATIONS Prior Hospitalizations: reports: for similar symptoms - IMMUNIZATION STATUS Childhood Immunizations: See Nurse Assessment Flu Vaccine: See Nurse Assessment - FAMILY HISTORY Family History: reviewed, not pertinent - SOCIAL HISTORY Smoking: denies Substance Use: denies Alcohol Use Frequency: never Living Situation: family Physical Exam-Injury Related - Physical Exam-Injury Related General Appearance: alert, mild distress, obese Eyes: PERRL/EOMI, pink conjunctivae Head, Ears, Nose, Mouth & Throat: moist mucous membranes Neck: normal inspection, C-spine tenderness Respiratory: chest non-tender, wheezing Cardiovascular: normal peripheral pulses, tachycardia (107) Chest/Breast: deferred Abdominal Exam: normal bowel sounds, non tender, soft Female Genitalia/Pelvic Exam: deferred Rectal Exam: deferred Hemoccult Exam: deferred Lymphatic: no adenopathy Back Exam: other (lateral rt neck, c-spine tenderness with palpation and bilateral shoulder). negative: ecchymosis Extremity: swelling (BLE edema), other (RBKA). negative: normal gait Integumentary: normal color, warm/dry Neurologic: grossly normal Psych/Mental Status: normal mood/affect, normal thought content, normal thought process, oriented x 3 - Glascow Coma Score Best Eye Response (Christy): (4) open spontaneously Best Verbal Response (Christy): (5) oriented Best Motor Response (Christy): (6) obeys commands [place] Total: 15 Progress - PLAN OF CARE/RESULTS Progress/Plan/Lab Results: Orders Category Date Time Status Admit - [facility] Routine AdmDCTranf 12/29/18 16:05 Active Activity - Up with Assistance ORDERED Care 12/29/18 19:51 Active Cardiac Monitoring DIRECTED Care 12/29/18 13:36 Completed DVT/PE Risk Assess/Protocol [QM] ORDERED Care 12/29/18 19:51 Active IV Insertion ORDERED Care 12/29/18 13:36 Completed Intake and Output-Strict ORDERED Care 12/29/18 19:51 Active Vital Signs Order Q 6-HR ASSESS Care 12/29/18 19:51 Active Z-Document. for Tele Applied ORDERED Care 12/29/18 19:51 Completed Social Service Consult Routine Cons 12/29/18 19:51 Active Heart Healthy Diet Diet 12/29/18 19:52 Active CHEST-1 VIEW [RAD] Stat Exams 12/29/18 13:[address] HEAD/C-SPINE W/O CONTRAST [CT] Stat Exams 12/29/18 14:00 Completed LUMBAR SPINE 2-VIEWS [RAD] Stat Exams 12/29/18 13:58 Completed THORACIC SPINE [RAD] Stat Exams 12/29/18 13:58 Completed BASIC METABOLIC PANEL [CHEM] DAILY Lab 12/30/18 06:30 Completed BASIC METABOLIC PANEL [CHEM] DAILY Lab 12/31/18 06:30 Completed BASIC METABOLIC PANEL [CHEM] DAILY Lab 01/01/19 06:00 Ordered BASIC METABOLIC PANEL [CHEM] DAILY Lab 01/02/19 06:00 Ordered BASIC METABOLIC PANEL [CHEM] DAILY Lab 01/03/19 06:00 Ordered BASIC METABOLIC PANEL [CHEM] DAILY Lab 01/04/19 06:00 Ordered BLOOD CULTURE [BLDCUL] Stat Lab 12/29/18 15:00 Results CBC WITH DIFF [HEME] DAILY Lab 12/30/18 06:30 Completed CBC WITH DIFF [HEME] DAILY Lab 12/31/18 06:30 Completed CBC WITH DIFF [HEME] DAILY Lab 01/01/19 06:00 Ordered CBC WITH DIFF [HEME] DAILY Lab 01/02/19 06:00 Ordered CBC WITH DIFF [HEME] DAILY Lab 01/03/19 06:00 Ordered CBC WITH DIFF [HEME] DAILY Lab 01/04/19 06:00 Ordered CBC WITH DIFF [HEME] Stat Lab 12/29/18 14:15 Completed CK PROFILE [SP CHEM] Stat Lab 12/29/18 14:15 Completed COMPREHENSIVE METABOLIC PANEL [CHEM] Stat Lab 12/29/18 14:15 Completed LACTATE, PLASMA [CHEM] Q3H Lab 12/29/18 14:15 Completed LACTATE, PLASMA [CHEM] Q3H Lab 12/29/18 16:35 Completed LACTATE, PLASMA [CHEM] Q3H Lab 12/29/18 20:02 Completed PROTIME WITH INR [COAG] Stat Lab 12/29/18 14:15 Completed PTT [COAG] Stat Lab 12/29/18 14:15 Completed TROPONIN T Stat Lab 12/29/18 14:15 Completed URINALYSIS W/POSS RFLX CULT [URINALYSIS] Stat Lab 12/29/18 14:27 Completed URINE CULTURE [RM] Routine Lab 12/29/18 15:05 Results URINE MANUAL MICROSCOPIC [URINALYSIS] Stat Lab 12/29/18 14:27 Completed 0.9% Sodium Chloride Inj [Ns] 1,000 ml Med 12/29/18 19:51 Active IV 75 mls/hr Albuterol 2.5MG/Ipratrop 0.5MG [Duoneb (A & A)] Med 12/29/18 16:50 Active 3 ml INH Q4H PRN PRN Allopurinol [Zyloprim] Med 12/30/18 09:00 Active 100 mg PO DAILY Aspirin Med 12/30/18 09:00 Active 81 mg PO DAILY Aztreonam [Azactam] 1 gm Med 12/30/18 04:00 Active 0.9% Sodium Chloride Inj [Ns] 50 ml IV Q8H Budesonide/Formoterol Inhaler [Symbicort 160/4.5 Med 12/29/18 07:30 Active Microgm Inhaler] 2 puff INH RTBID Calcium Carbonate Chew [Tums] Med 12/29/18 21:00 Active 500 mg PO BID Cholecalciferol (Vit D3) [Vitamin D] Med 12/29/18 21:00 Active 1,000 unit PO BID Enoxaparin [Lovenox] Med 12/29/18 21:00 Active 40 mg SUBQ Q24H Furosemide [Lasix] Med 12/30/18 09:00 Active 40 mg PO DAILY Gabapentin [Neurontin] Med 12/29/18 19:51 Discontinued 600 mg PO TID Hydrocodone/APAP 5 mg/325 mg [[place]-5] Med 12/29/18 19:51 Active 1 each PO Q6H PRN PRN Iron Carbonyl/Ascorbic Acid [Icar-C] Med 12/30/18 09:00 Active 1 each PO DAILY Isosorbide Mononitrate E.r. [Imdur] Med 12/30/18 09:00 Active 30 mg PO DAILY Levofloxacin 500 mg/D5w [Levaquin 500 mg/D5w] Med 12/29/18 15:58 Discontinued 500 mg in 100 ml IV NOW Metoprolol [Lopressor] Med 12/29/18 21:00 Active 25 mg PO Q12HR Omeprazole [Prilosec] Med 12/30/18 09:00 Discontinued 1 mg PO QAM Ondansetron [Zofran] Med 12/29/18 19:51 Active 4 mg IV Q4H PRN PRN Polyethylene Glycol 3350 [Miralax] Med 12/29/18 19:51 Active 17 gm PO Q24H PRN PRN Potassium Chloride E.r. [Micro-K] Med 12/29/18 19:51 Active 10 meq PO QAM PRN PRN Quetiapine [Seroquel] Med 12/29/18 21:00 Active 400 mg PO HS Topiramate [Topamax] Med 12/29/18 21:00 Active 25 mg PO BID Aerosol Treatments Routine Oth 12/29/18 19:51 Completed Aerosol Treatments Stat Oth 12/29/18 19:51 Completed MDI Treatments Stat Oth 12/29/18 19:51 Completed Oxygen Device Stat Oth 12/29/18 13:36 Completed Telemetry [OM.EQ] Routine Oth 12/29/18 19:51 Active Physical Therapy Eval/Treatment [OM.PT] Routine Ther 12/29/18 19:51 Active Transfer/Admit Order [TRANSFER] Routine Transfer 12/29/18 16:42 Completed Result Diagrams: 12/31/18 06:30 12/31/18 06:30 - REASSESSMENT Reassessment #1 Time Reassessed: 14:17 Status: unchanged - EKG 1 Time of EKG reading by physician:: 13:15 EKG Read and Signed by:: Randy Osuna EKG Interpretation (*Must complete 3 of following elements*): Abnormal Rate: 106 Rhythm: undetermined rhythm Frederic: normal QRS: RBB WI Interval: normal ST Wave: normal - XRAY 1 XRAY: Bilateral XRAY Study: Chest Impression: See EMR Report (EXAM: CHEST-1 VIEW 12/29/2018 HISTORY: sepsis protocol TECHNIQUE: Erect AP portable at 1344 COMMENT: There is improvement in the interstitial pulmonary edema present on 12/03/2018. The heart size also appears smaller. IMPRESSION: Improved pulmonary edema and cardiomegaly. Electronically signed by Dick Neumann 12/29/2018 1:47 PM 12/29/18 1347 Interpreting Physician: Dick Neumann MD Dictated Date/Time: 12/29/18 1346 cc: Randy Osuna MD; Rebecca Crawford MD) 2 XRAY Study: Thoracic Spine Impression: See EMR Report (EXAM: THORACIC SPINE HISTORY: fall TECHNIQUE: AP and lateral, three views COMPARISON: 11/16/2018 FINDINGS: Mild scoliosis with degenerative changes throughout the thoracic spine. No compression fracture. No subluxation. The appearance is similar to the prior study. IMPRESSION: No acute fracture. Electronically signed by Getachew Caro 12/29/2018 2:57 PM 12/29/18 1457 Interpreting Physician: Getachew Caro MD Dictated Date/Time: 12/29/18 1457 cc: Randy Osuna MD; Rebecca Crawford MD) 3 XRAY: Bilateral XRAY Study: Lumbar Spine Impression: See EMR Report (EXAM: LUMBAR SPINE 2-VIEWS HISTORY: fall TECHNIQUE: AP and lateral, two views COMPARISON: 11/16/2018 FINDINGS: Mild scoliosis. The bones are osteopenic. Prominent degenerative changes. Subluxation of L5 on S1. Questionable minimal compression to the L2 and L3 vertebra. IMPRESSION: Questionable minimal new compression deformities to the L2 and L3 vertebra. This appearance may be due to the angulation of the films. A follow-up MRI or nuclear medicine bone scan as an outpatient may be beneficial if clinical concern persists. Electronically signed by Getachew Caro 12/29/2018 3:01 PM 12/29/18 1501 Interpreting Physician: Getachew Caro MD Dictated Date/Time: 12/29/18 1459 cc: Randy Osuna MD; Rebecca Crawford MD) - CT/MRI 1 CT Study: Cervical Spine, Head Impression: See EMR Report (EXAM: CT HEAD/C-SPINE W/O CONTRAST 12/29/2018 HISTORY: fall TECHNIQUE: This exam was performed using automated exposure control, adjustment of mA or kV according to patient size, and/or use of iterative reconstruction technique. COMMENT: There is no evidence of mass e ffect, bleed, or abnormal extra-axial fluid collection. There is a small lacune in the subcortical white matter of the right frontal lobe just anterior to the sylvian fissure. The calvarium is intact. The visualized paranasal sinuses are clear. Cervical spine: There is severe degenerative disc disease at the C3-4, C4-5, C5-6, C6-C7, and C7-T1 levels. The latter levels appear to be fused. There is posterior osteophyte formation at C3-4 and C5-6 which may be associated with spinal stenosis. This may also be present at C6-7. The appearance has not changed appreciably since the previous examination of 11/17/2018. IMPRESSION: No evidence of acute intracranial disease. Severe degenerative disc disease with multilevel spinal stenosis. No evidence of acute bony abnormality. Electronically signed by Dick Neumann 12/29/2018 2:48 PM 12/29/18 1448 Interpreting Physician: Dick Neumann MD Dictated Date/Time: 12/29/18 1445 cc: Randy Osuna MD; Rebecca Crawford MD) - CONSULTS/PCP/HOSPITALIST Notification #1 *Consult/PCP/Hospitalist*: dr davis hospitalist Time Discussed: 16:02 Consult Disposition: Admit Departure - Departure Date of Disposition Decision: 12/29/18 Time of Disposition Decision: 16:00 DIAGNOSIS: UTI (urinary tract infection) Qualifiers: Urinary tract infection type: site unspecified Hematuria presence: without hematuria Qualified Code(s): N39.0 - Urinary tract infection, site not specified Fall from motorized mobility scooter Qualifiers: Encounter type: initial encounter Qualified Code(s): V00.831A - Fall from motorized mobility scooter, initial encounter Disposition: ADMITTED INPATIENT 09 Certified Medical Emergency: Emergent Condition: Serious - Critical Care Note This patient required my direct & personal management of CC.: No Attestation - Physician/ JERILYN Attestation Patient care was provided by Advanced Practice Provider:: No The physician spent face to face time with patient:: Yes Advanced Practice Provider documentation review:: Supervising physician onsite and consulted in the evaluation and care of this patient. The physician did have a face to face encounter with the patient. This chart was documented by the indicated scribe, (Cecilia Huff Scribe) and accurately reflects the services I performed and decisions made by me, Randy Osuna MD, as attested by the provider's signature.
[2018-12-31] MEDS: VITAMIN D PO SCH ×2 (08:11→22:36)
[2018-12-31] MEDS: TUMS PO SCH ×2 (08:11→22:36)
[2018-12-31] MEDS: ICAR-C PO SCH (08:11)
[2018-12-31] MEDS: PRILOSEC PO SCH (08:11)
[2018-12-31] MEDS: NEURONTIN PO SCH ×3 (08:11→22:36)
[2018-12-31] MEDS: ZYLOPRIM PO SCH (08:11)
[2018-12-31] MEDS: LOPRESSOR PO SCH ×2 (08:11→22:37)
[2018-12-31] MEDS: IMDUR PO SCH (08:11)
[2018-12-31] MEDS: ASPIRIN PO SCH (08:11)
[2018-12-31] MEDS: LASIX PO SCH (08:11)
[2018-12-31] MEDS: TOPAMAX PO SCH ×2 (08:11→22:39)
--- NOTE | 2018-12-31 12:47 | PROGRESS NOTE ---
DATE: 12/31/2018 SUBJECTIVE: Patient reports feeling okay. Denies any fever or chills. OBJECTIVE: Vital Signs: Temperature 97.9 degrees, heart rate 82, respiratory rate 18, blood pressure 116/55, and O2 saturation 97% on 4 L nasal cannula. General: This is a chronically ill- appearing 78-year-old female lying in bed in no acute distress. Cardiovascular: S1, S2 heard. No murmurs, gallops, or rubs. Regular rate and rhythm. Respiratory: Decreased breath sounds globally. Mildly prolonged respiratory phase. Patient not using any accessory muscles or having work of breathing. Abdomen: Soft. Nontender to palpation. Bowel sounds present. No organomegaly. Extremities: Right bjrgo-qot-fgjr amputation noted. Left lower extremity with trace edema with some redness around the leg that looks like chronic venous stasis. Neurological: Patient is alert and oriented x3. Moves all 4 extremities. LABORATORY DATA: Reviewed. ASSESSMENT AND PLAN: 1. Urinary tract infection secondary to Escherichia coli, that bacteria is resistant to Levaquin and sulfa. At this point, we will continue with Azactam 1 g IV 8 hours. White cell count is back to normal. Patient is not feeling symptomatic anymore. We will continue with the same management. 2. Chronic obstructive pulmonary disease exacerbation. We will provide breathing treatments as needed only. 3. Recurrent falls. Physical Therapy is working with this patient, but she needs to go to rehab facility. 4. History of fibromyalgia. We will continue with home medications. 5. Anemia of chronic disease. Hemoglobin is stable. We will continue to check BMP and CBC daily. 6. Hypertension. Blood pressure is under control. We will continue with same management. 7. Disposition. At this point, the patient is getting better. We are awaiting social media director to find a bed for her in rehab facility. cc: Vivek Marie MD
[2018-12-31] MEDS: NORCO-5 PO PRN (22:31)
[2018-12-31] MEDS: LOVENOX SUBQ SCH (22:36)
[2018-12-31] MEDS: SEROQUEL PO SCH (22:36)
[2019-01-01] MEDS: AZACTAM 1 GM in NS 50 ML IV SCH ×3 (03:25→22:08)
[2019-01-01] MEDS: NS 1,000 ML IV SCH ×2 (04:14→18:16)
[2019-01-01 07:31] LABS: BASO# 0.02 X1000 (0.0-0.2); BASO% 0.3 % (0.0-0.8); EOS# 0.39 X1000 (0.0-0.7); EOS% 6.1 % (0.0-10.0); HEMATOCRIT 27.3 % (37.0-47.0); HEMOGLOBIN 8.2 g/dL (12.0-16.0); IMM GRAN# 0.04 X1000 (0.0-0.04); IMM GRAN% 0.6 % (0.0-0.5); LYMPH# 1.83 X1000 (1.2-3.4); LYMPH% 28.5 % (20.5-51.1); MCH 28.1 PG (27-31); MCV 93.5 FL (81-99); MONO# 0.52 X1000 (0.11-0.59); MONO% 8.1 % (1.7-9.3); MPV 10.6 FL (7.4-10.4); NEUT# 3.62 X1000 (1.4-6.5); NEUT% 56.4 % (42.2-75.2); PLT 246 X1000 (130-400); RBC 2.92 XMIL (4.2-5.4); RDW 18.5 % (11.5-14.5); WBC 6.42 X1000 (4.8-10.8)
[2019-01-01 07:37] LABS: AGAP 4; BUN 16 mg/dL (8-22); CALCIUM 8.2 mg/dL (8.8-10.2); CHLORIDE 103 mmol/L (98-107); COSMO 286; CREATININE 0.6 mg/dL (0.5-0.9); ESTIMATED GFR > 60; GLUCOSE 88 mg/dL (70-104); POTASSIUM 3.1 mmol/L (3.5-5.1); SODIUM 143 mmol/L (136-145); TCO2 36 mmol/L (25-35)
[2019-01-01] MEDS: VITAMIN D PO SCH ×2 (09:16→22:10)
[2019-01-01] MEDS: ZYLOPRIM PO SCH (09:16)
[2019-01-01] MEDS: LASIX PO SCH (09:16)
[2019-01-01] MEDS: PRILOSEC PO SCH (09:16)
[2019-01-01] MEDS: LOPRESSOR PO SCH ×2 (09:16→22:10)
[2019-01-01] MEDS: TOPAMAX PO SCH ×2 (09:16→22:10)
[2019-01-01] MEDS: IMDUR PO SCH (09:16)
[2019-01-01] MEDS: NEURONTIN PO SCH ×3 (09:16→22:10)
[2019-01-01] MEDS: TUMS PO SCH ×2 (09:16→22:10)
[2019-01-01] MEDS: ICAR-C PO SCH (09:16)
[2019-01-01] MEDS: ASPIRIN PO SCH (09:16)
[2019-01-01] MEDS: SYMBICORT 160/4.5 MICROGM INHALER INH SCH ×2 (10:01→20:43)
[2019-01-01] MEDS ORDERED: KLOR-CON PO ONE (10:51)
--- NOTE | 2019-01-01 14:08 | PROGRESS NOTE ---
DATE: 01/03/2019 SUBJECTIVE: Patient reports feeling okay. No more episodes of chills or pain upon urination. OBJECTIVE: Vital Signs: Temperature 97.9 degrees, heart rate 80, respiratory rate 22, blood pressure 133/81, O2 saturation 100% on 4 L nasal cannula. General: The this is a this is a chronically ill-appearing, 78-year-old female lying in bed, in no acute distress. Cardiovascular: S1, S2 heard. No murmurs, gallops, or rubs. Regular rate and rhythm. Respiratory: Decreased breath sounds globally with mild prolonged expiatory phase but patient is not using any accessory muscles or having work of breathing. Abdomen: Soft, nontender to palpation. Bowel sounds present. No organomegaly. Extremities: Right qydyx-tms-szdc amputation noted with left lower extremity with trace edema and some redness around the leg that looks like chronic venous stasis. Neurological: Patient is alert and oriented x3. Moves 4 extremities. LABORATORY DATA: Reviewed. ASSESSMENT AND PLAN: 1. Urinary tract infection secondary to Escherichia coli. We will continue with Azactam. White cell count is back to normal and she is not symptomatic anymore. We will continue with the same management. 2. Chronic obstructive pulmonary disease exacerbation. We will provide breathing treatments as needed only. 3. Recurrent falls. Physical therapy working with this patient and that is basically reason why she is going to rehab facility. 4. History of fibromyalgia. Will continue home medications. 5. Anemia of chronic disease. Hemoglobin is stable. We will continue to check complete blood count daily. 6. Hypertension blood pressure is under control. We will continue with the same medications. DISPOSITION: At this point, this patient is medically stable. We will continue with IV medications for this infection until we get a bed for her in rehab facility. cc: Vivek Marie MD
[2019-01-01] MEDS: DUONEB (A & A) INH PRN (20:43)
[2019-01-01] MEDS: SEROQUEL PO SCH (22:10)
[2019-01-01] MEDS: LOVENOX SUBQ SCH (22:10)
[2019-01-01] MEDS: NORCO-5 PO PRN (22:15)
[2019-01-02 02:35] LABS: MAGNESIUM 1.6 mg/dL (1.5-2.7); POTASSIUM 3.7 mmol/L (3.5-5.1)
[2019-01-02] MEDS: AZACTAM 1 GM in NS 50 ML IV SCH ×3 (04:26→21:43)
[2019-01-02 07:53] LABS: BASO# 0.02 X1000 (0.0-0.2); BASO% 0.3 % (0.0-0.8); EOS# 0.49 X1000 (0.0-0.7); EOS% 7.5 % (0.0-10.0); HEMATOCRIT 27.2 % (37.0-47.0); HEMOGLOBIN 8.2 g/dL (12.0-16.0); IMM GRAN# 0.02 X1000 (0.0-0.04); IMM GRAN% 0.3 % (0.0-0.5); LYMPH# 1.73 X1000 (1.2-3.4); LYMPH% 26.6 % (20.5-51.1); MCH 28.1 PG (27-31); MCHC 30.1 g/dL (33-37); MCV 93.2 FL (81-99); MONO# 0.52 X1000 (0.11-0.59); MPV 11.3 FL (7.4-10.4); NEUT# 3.73 X1000 (1.4-6.5); NEUT% 57.3 % (42.2-75.2); PLT 261 X1000 (130-400); RBC 2.92 XMIL (4.2-5.4); RDW 18.4 % (11.5-14.5); WBC 6.51 X1000 (4.8-10.8)
[2019-01-02 08:04] LABS: AGAP 7; BUN 17 mg/dL (8-22); CALCIUM 8.4 mg/dL (8.8-10.2); CHLORIDE 103 mmol/L (98-107); COSMO 285; CREATININE 0.6 mg/dL (0.5-0.9); ESTIMATED GFR > 60; GLUCOSE 96 mg/dL (70-104); POTASSIUM 3.8 mmol/L (3.5-5.1); SODIUM 142 mmol/L (136-145); TCO2 32 mmol/L (25-35)
[2019-01-02] MEDS: DUONEB (A & A) INH PRN ×3 (08:31→19:36)
[2019-01-02] MEDS: SYMBICORT 160/4.5 MICROGM INHALER INH SCH ×2 (08:31→19:36)
[2019-01-02] MEDS: IMDUR PO SCH (11:12)
[2019-01-02] MEDS: NEURONTIN PO SCH ×3 (11:13→21:44)
[2019-01-02] MEDS: ASPIRIN PO SCH (11:13)
[2019-01-02] MEDS: TOPAMAX PO SCH ×2 (11:13→21:44)
[2019-01-02] MEDS: ICAR-C PO SCH (11:13)
[2019-01-02] MEDS: ZYLOPRIM PO SCH (11:13)
[2019-01-02] MEDS: PRILOSEC PO SCH (11:13)
[2019-01-02] MEDS: LASIX PO SCH (11:13)
[2019-01-02] MEDS: TUMS PO SCH ×2 (11:13→21:43)
[2019-01-02] MEDS: VITAMIN D PO SCH ×2 (11:13→21:43)
[2019-01-02] MEDS: LOPRESSOR PO SCH ×2 (11:13→21:43)
[2019-01-02] MEDS: NS 1,000 ML IV SCH (14:17)
--- NOTE | 2019-01-02 18:44 | PROGRESS NOTE ---
DATE: 01/02/2019 SUBJECTIVE: The patient reports feeling fine. No chest pain. No sensation of palpitation. As per nursing staff, there was some episodes of trigeminy noted in the telemetry but the EKG was normal. As we mentioned before, patient is not symptomatic. OBJECTIVE: Vital Signs: Temperature 97.9, heart rate 78, respiratory rate 16, blood pressure 143/60, O2 saturation 100% on 5 L nasal cannula. General: On examination, this is a 78-year- old, chronically ill-appearing, female lying in bed, in no acute distress. Cardiovascular: S1, S2 heard. No murmurs, gallops or rubs. Regular rate and rhythm. Respiratory: Breath sounds globally with mild prolonged expiratory phase. The patient is not using any accessory muscles or having work of breathing. Abdomen: Soft, nontender to palpation. Bowel sounds present. No organomegaly. Extremities: Right lzfzm-dmd-ibrm amputation noted. Left lower extremity with trace edema and redness. Neurological: Patient alert and oriented x3. Moves 4 extremities. LABORATORY DATA: Reviewed. ASSESSMENT AND PLAN: 1. Urinary tract infection secondary to E coli. We will continue with Azactam. White cell count is back to normal. We will continue with same management. 2. Chronic obstructive pulmonary disease. Not in any exacerbation. We will provide breathing treatments as needed only. 3. Recurrent falls patient working with physical therapy and waiting for rehab bed. 4. History of fibromyalgia. Will continue with home medications. 5. Anemia of chronic disease. Hemoglobin is stable. We will continue to check CBC daily. 6. Hypertension. Blood pressure is under control. We will continue with the same medications. 7. Disposition. The patient is medically stable. Will send this patient to rehab whenever we have for her. cc: Vivek Marie MD
[2019-01-02] MEDS: SEROQUEL PO SCH (21:43)
[2019-01-02] MEDS: LOVENOX SUBQ SCH (21:44)
[2019-01-03] MEDS: NS 1,000 ML IV SCH ×2 (04:35→19:45)
[2019-01-03] MEDS: AZACTAM 1 GM in NS 50 ML IV SCH ×3 (04:35→21:04)
[2019-01-03 07:20] LABS: BASO# 0.02 X1000 (0.0-0.2); BASO% 0.3 % (0.0-0.8); EOS% 6.6 % (0.0-10.0); HEMATOCRIT 29.2 % (37.0-47.0); HEMOGLOBIN 8.9 g/dL (12.0-16.0); IMM GRAN# 0.04 X1000 (0.0-0.04); IMM GRAN% 0.5 % (0.0-0.5); LYMPH# 1.71 X1000 (1.2-3.4); LYMPH% 22.6 % (20.5-51.1); MCH 28.1 PG (27-31); MCHC 30.5 g/dL (33-37); MCV 92.1 FL (81-99); MONO# 0.53 X1000 (0.11-0.59); NEUT# 4.76 X1000 (1.4-6.5); PLT 269 X1000 (130-400); RBC 3.17 XMIL (4.2-5.4); RDW 18.4 % (11.5-14.5); WBC 7.56 X1000 (4.8-10.8)
[2019-01-03 07:45] LABS: AGAP 8; BUN 18 mg/dL (8-22); CALCIUM 8.8 mg/dL (8.8-10.2); CHLORIDE 103 mmol/L (98-107); COSMO 287; CREATININE 0.6 mg/dL (0.5-0.9); ESTIMATED GFR > 60; GLUCOSE 98 mg/dL (70-104); POTASSIUM 3.9 mmol/L (3.5-5.1); SODIUM 143 mmol/L (136-145); TCO2 32 mmol/L (25-35)
[2019-01-03] MEDS: TOPAMAX PO SCH ×2 (09:28→21:05)
[2019-01-03] MEDS: LOPRESSOR PO SCH ×2 (09:28→21:05)
[2019-01-03] MEDS: NEURONTIN PO SCH ×3 (09:28→21:05)
[2019-01-03] MEDS: ZYLOPRIM PO SCH (09:28)
[2019-01-03] MEDS: PRILOSEC PO SCH (09:28)
[2019-01-03] MEDS: TUMS PO SCH ×2 (09:28→21:05)
[2019-01-03] MEDS: ASPIRIN PO SCH (09:28)
[2019-01-03] MEDS: VITAMIN D PO SCH ×2 (09:28→21:05)
[2019-01-03] MEDS: ICAR-C PO SCH (09:28)
[2019-01-03] MEDS: IMDUR PO SCH (09:28)
[2019-01-03] MEDS: LASIX PO SCH (09:28)
[2019-01-03] MEDS: SYMBICORT 160/4.5 MICROGM INHALER INH SCH ×2 (11:36→19:15)
[2019-01-03] MEDS: DUONEB (A & A) INH PRN ×2 (11:37→15:18)
--- NOTE | 2019-01-03 12:54 | PROGRESS NOTE ---
DATE: 01/03/2019 SUBJECTIVE: The patient reports feeling fine. Denies any complaint at this time. OBJECTIVE: Vital Signs: Temperature 98.2 degrees, heart rate 80, respiratory rate 19, blood pressure 105/50, O2 saturation 98% on 4 L nasal cannula. General Examination: This is a chronically ill-appearing, 78-year-old, female lying in bed, in no acute distress. Cardiovascular Examination: S1 and S2 heard. No murmurs, gallops, or rubs. Regular rate and rhythm. Respiratory Examination: Decreased breath sounds globally. Mildly prolonged expiratory phase. The patient is not using any accessory muscles or having work of breathing. Abdomen: Soft. Nontender to palpation. Bowel sounds present. No organomegaly. Extremities: No clubbing, cyanosis, or edema. There is a right qjpax-iso-jjan amputation noted. Left lower extremity with trace edema. Neurological Examination: The patient is alert and oriented x3. Moves 4 extremities. Laboratory Data: Reviewed. ASSESSMENT AND PLAN: 1. Urinary tract infection secondary to Escherichia coli. We will continue with Azactam. Today is number #5 of treatment. We will continue with this medication to complete at least 7 to 10 days of antibiotics. 2. Chronic obstructive pulmonary disease, not in any exacerbation. We will provide breathing treatments as needed only. 3. Recurrent falls. Patient is working with physical therapy and awaiting for a rehab bed. 4. History of fibromyalgia. Aware. We will continue home medications. 5. Anemia of chronic disease. Hemoglobin is stable. We will continue to check CBC daily. 6. Hypertension. Blood pressure is under control. We will continue with the same medications. 7. Disposition. The patient is medically stable. At this point, awaiting for a rehab bed whenever it is available. cc: Vivek Marie MD
[2019-01-03] MEDS: SEROQUEL PO SCH (21:05)
[2019-01-03] MEDS: LOVENOX SUBQ SCH (21:05)
[2019-01-04] MEDS: AZACTAM 1 GM in NS 50 ML IV SCH ×3 (04:50→20:30)
[2019-01-04 06:59] LABS: AGAP 7; BUN 19 mg/dL (8-22); CALCIUM 8.7 mg/dL (8.8-10.2); CHLORIDE 103 mmol/L (98-107); COSMO 287; CREATININE 0.7 mg/dL (0.5-0.9); ESTIMATED GFR > 60; GLUCOSE 102 mg/dL (70-104); POTASSIUM 3.6 mmol/L (3.5-5.1); SODIUM 143 mmol/L (136-145); TCO2 33 mmol/L (25-35)
[2019-01-04 07:04] LABS: BASO# 0.03 X1000 (0.0-0.2); BASO% 0.4 % (0.0-0.8); EOS# 0.53 X1000 (0.0-0.7); EOS% 7.8 % (0.0-10.0); HEMATOCRIT 27.7 % (37.0-47.0); HEMOGLOBIN 8.3 g/dL (12.0-16.0); IMM GRAN# 0.03 X1000 (0.0-0.04); IMM GRAN% 0.4 % (0.0-0.5); LYMPH# 1.81 X1000 (1.2-3.4); LYMPH% 26.6 % (20.5-51.1); MCH 27.9 PG (27-31); MONO# 0.53 X1000 (0.11-0.59); MONO% 7.8 % (1.7-9.3); NEUT# 3.87 X1000 (1.4-6.5); PLT 265 X1000 (130-400); RBC 2.98 XMIL (4.2-5.4); RDW 18.4 % (11.5-14.5)
[2019-01-04] MEDS: SYMBICORT 160/4.5 MICROGM INHALER INH SCH ×2 (08:41→19:53)
[2019-01-04] MEDS: DUONEB (A & A) INH PRN ×5 (08:42→23:21)
[2019-01-04] MEDS: TOPAMAX PO SCH ×2 (10:20→20:30)
[2019-01-04] MEDS: LOPRESSOR PO SCH ×2 (10:20→20:30)
[2019-01-04] MEDS: VITAMIN D PO SCH ×2 (10:21→20:30)
[2019-01-04] MEDS: PRILOSEC PO SCH (10:21)
[2019-01-04] MEDS: LASIX PO SCH (10:21)
[2019-01-04] MEDS: ASPIRIN PO SCH (10:21)
[2019-01-04] MEDS: TUMS PO SCH ×2 (10:21→20:30)
[2019-01-04] MEDS: NEURONTIN PO SCH ×3 (10:21→20:30)
[2019-01-04] MEDS: ICAR-C PO SCH (10:21)
[2019-01-04] MEDS: IMDUR PO SCH (10:21)
[2019-01-04] MEDS: ZYLOPRIM PO SCH (10:21)
[2019-01-04] MEDS: NS 1,000 ML IV SCH ×3 (10:25→23:28)
--- NOTE | 2019-01-04 12:00 | PROGRESS NOTE ---
DATE: 01/04/2019 SUBJECTIVE: Patient reports feeling fine. Denies any burning on urination, fever, or chills. OBJECTIVE: Vital Signs: Temperature now 97.9, heart rate 81, respiratory rate 19, blood pressure 130/54, O2 saturation 100% on 4 L nasal cannula. General Examination: This is a chronically ill- appearing, 78-year-old, female lying in bed, in no acute distress. Cardiovascular Examination: S1 and S2 heard. No murmurs, gallops, or rubs. Regular rate and rhythm. Respiratory Examination: Decreased breath sounds globally. Patient is not using any accessory muscles or having work of breathing. Abdomen: Soft. Nontender to palpation. Bowel sounds present. No organomegaly. No suprapubic tenderness noted. Extremities: No clubbing, cyanosis, or edema. There is a right uevpb-rco-kzmm amputation noted. Left lower extremity with trace edema and erythema. Neurological Examination: The patient is alert and oriented x3. Moves 4 extremities. Laboratory Data: Reviewed. ASSESSMENT AND PLAN: 1. Urinary tract infection. The patient clinically is doing fine. The patient is on Azactam, today will be #6 of treatment. We will continue with antibiotics until completes 7 to 10 days of those. 2. Chronic obstructive pulmonary disease, not in exacerbation. We will provide DuoNeb as needed only. 3. Recurrent falls. The patient is working with physical therapy and awaiting for a rehab bed. 4. History of fibromyalgia. Aware. We will continue home medications. 5. Anemia of chronic disease. Hemoglobin is stable. We will continue to check CBC daily. 6. Hypertension. Blood pressure is under control. We will continue with the same medications. 7. Disposition. At this point, the patient is medically stable and awaiting a rehab bed. cc: Vivek Marie MD
[2019-01-04] MEDS: TESSALON PO SCH ×2 (15:16→20:30)
[2019-01-04] MEDS ORDERED: TESSALON PO SCH (17:00)
[2019-01-04] MEDS: LOVENOX SUBQ SCH (20:30)
[2019-01-04] MEDS: SEROQUEL PO SCH (20:30)
[2019-01-05] MEDS: AZACTAM 1 GM in NS 50 ML IV SCH ×3 (04:53→21:24)
[2019-01-05] MEDS: DUONEB (A & A) INH PRN ×4 (07:33→19:05)
[2019-01-05] MEDS: SYMBICORT 160/4.5 MICROGM INHALER INH SCH ×2 (07:33→19:05)
[2019-01-05] MEDS: LOPRESSOR PO SCH ×2 (10:01→21:25)
[2019-01-05] MEDS: ICAR-C PO SCH (10:01)
[2019-01-05] MEDS: TUMS PO SCH ×2 (10:01→21:25)
[2019-01-05] MEDS: LASIX PO SCH (10:01)
[2019-01-05] MEDS: IMDUR PO SCH (10:01)
[2019-01-05] MEDS: PRILOSEC PO SCH (10:01)
[2019-01-05] MEDS: ASPIRIN PO SCH (10:02)
[2019-01-05] MEDS: TOPAMAX PO SCH ×2 (10:02→21:25)
[2019-01-05] MEDS: ZYLOPRIM PO SCH (10:02)
[2019-01-05] MEDS: NEURONTIN PO SCH ×3 (10:02→21:25)
[2019-01-05] MEDS: TESSALON PO SCH ×3 (10:02→16:29)
[2019-01-05] MEDS: NORCO-5 PO PRN (10:05)
[2019-01-05] MEDS: NS 1,000 ML IV SCH ×2 (10:06→16:25)
[2019-01-05] MEDS: VITAMIN D PO SCH ×2 (10:08→21:25)
--- NOTE | 2019-01-05 14:27 | PROGRESS NOTE ---
DATE: 01/05/2019 SUBJECTIVE: Patient reports feeling fine. No burning on urination. No fever or chills. OBJECTIVE: Vital Signs: Temperature 97.8 degrees, heart rate 86, respiratory rate 18, blood pressure 132/77, O2 saturation 100% on 4 L nasal cannula. General: This is a chronically ill- appearing 78-year-old female, lying in bed, in no acute distress. Cardiovascular: S1, S2 heard. No murmurs, gallops, or rubs. Regular rate and rhythm. Respiratory: Decreased breath sounds globally. Patient is not using any accessory muscles or having work of breathing. Abdomen: Soft, nontender to palpation. Bowel sounds present. No organomegaly. No suprapubic tenderness noted. Extremities: No clubbing, cyanosis, or edema. There is a right [id number] amputation noted with left lower extremity with trace edema and erythema. Neurological: Patient alert and oriented x3. Moves 4 extremities. ASSESSMENT AND PLAN: 1. Urinary tract infection. The patient clinically is doing fine. Patient is on Azactam, today is day #7 of treatment. Will continue with antibiotics for 10 days. 2. Chronic obstructive pulmonary disease, not in exacerbation. We will provide DuoNeb as needed. 3. Recurrent falls. That is the reason why this patient is working with Physical Therapy. 4. History of fibromyalgia, aware. Will continue home medications. 5. Anemia of chronic disease. Hemoglobin is stable. We will continue to check CBC. 6. Hypertension. Blood pressure is under control, will continue with the same medication. 7. Disposition. At this point, it is going to be very difficult to place this patient. She has been using her rehab days and now apparently, as per secondary social studies teacher, she ran out of those and in case we wanted to send her to rehab, she has to pay approximately 175 dollars per day. Because she cannot afford it and because most likely she will need long-term placement, it looks like she is going to be in the hospital for at least a few days or few weeks to figure out what we can do for this patient. Apparently, she has a daughter who is not helping her and she has granddaughter who is trying to help her. In any case, as we mentioned before, it is going to take a few days or weeks to place this patient. Ideally, she needs to go to a intermediate. cc: Vivek Marie MD
[2019-01-05] MEDS: CALMOSEPTINE OINTMENT TOP PRN (17:28)
[2019-01-05] MEDS: SEROQUEL PO SCH (21:25)
[2019-01-05] MEDS: LOVENOX SUBQ SCH (21:25)
[2019-01-06] MEDS: NS 1,000 ML IV SCH ×3 (02:31→18:19)
[2019-01-06] MEDS: AZACTAM 1 GM in NS 50 ML IV SCH ×3 (04:06→20:05)
[2019-01-06] MEDS: DUONEB (A & A) INH PRN ×3 (07:49→15:08)
[2019-01-06] MEDS: SYMBICORT 160/4.5 MICROGM INHALER INH SCH ×2 (07:49→20:15)
[2019-01-06] MEDS: VITAMIN D PO SCH ×2 (08:12→20:05)
[2019-01-06] MEDS: NORCO-5 PO PRN ×2 (08:12→16:17)
[2019-01-06] MEDS: PRILOSEC PO SCH (08:12)
[2019-01-06] MEDS: TUMS PO SCH ×2 (08:13→20:05)
[2019-01-06] MEDS: ZYLOPRIM PO SCH (08:13)
[2019-01-06] MEDS: LASIX PO SCH (08:13)
[2019-01-06] MEDS: TESSALON PO SCH ×3 (08:13→16:18)
[2019-01-06] MEDS: TOPAMAX PO SCH ×2 (08:13→20:05)
[2019-01-06] MEDS: LOPRESSOR PO SCH ×2 (08:13→20:05)
[2019-01-06] MEDS: IMDUR PO SCH (08:13)
[2019-01-06] MEDS: ASPIRIN PO SCH (08:13)
[2019-01-06] MEDS: ICAR-C PO SCH (08:13)
[2019-01-06] MEDS: NEURONTIN PO SCH ×3 (08:13→20:05)
--- NOTE | 2019-01-06 11:39 | PROGRESS NOTE ---
DATE: 01/06/2019 SUBJECTIVE: The patient reports feeling fine. No complaints at this time. No burning on urination noted. OBJECTIVE: Vital Signs: Temperature 97.7 degrees, heart rate 61, respiratory rate 12, blood pressure 124/79, O2 saturation 96% on 4 L nasal cannula. General Examination: This is a chronically ill-appearing, 70-year-old female, lying in bed in no acute distress. Cardiovascular exam: S1, S2 heard. No murmurs, gallops, or rubs. Regular rate and rhythm. Respiratory exam: Decreased breath sounds globally. Patient is not using any accessory muscles or having work of breathing. Abdomen: Soft. Nontender to palpation. Bowel sounds present. No organomegaly. No suprapubic tenderness noted. Extremities: No clubbing, cyanosis, or edema. There is a right ucexm-[id number]-[id number] amputation noted with left lower extremity with trace edema and erythema. Neurological exam: Patient alert and oriented x3. Moves 4 extremities. ASSESSMENT AND PLAN: 1. Urinary tract infection secondary to Escherichia coli. Clinically, this patient is fine, symptomatic. Patient is on Azactam. Today is day #8 of treatment. We will complete antibiotics for 10 days total. 2. Chronic obstructive pulmonary disease. The patient is not on any exacerbation. We will continue to provide DuoNeb as needed only. 3. History of fibromyalgia, aware. Will continue with home medications. 4. Anemia of chronic disease. Hemoglobin is stable. We will continue to check complete blood count daily. 5. Hypertension. Blood pressure is under control. We will continue with the same medication. 6. Recurrent fall. That is the reason why this patient is working with physical therapy. 7. Disposition: At this point, it is going to be very difficult to place this patient. dental laboratory worker has been involved in her care, as well as the case packer and sealer. We are working to have a bed for her in a rehabilitation facility. We will see if we can do that. cc: Vivek Marie MD
[2019-01-06] MEDS: SEROQUEL PO SCH (20:05)
[2019-01-06] MEDS: LOVENOX SUBQ SCH (20:06)
[2019-01-07] MEDS: AZACTAM 1 GM in NS 50 ML IV SCH ×3 (04:25→21:33)
[2019-01-07] MEDS: NS 1,000 ML IV SCH (04:26)
[2019-01-07] MEDS: SYMBICORT 160/4.5 MICROGM INHALER INH SCH ×2 (07:30→19:50)
[2019-01-07] MEDS: DUONEB (A & A) INH SCH ×5 (08:00→23:35)
[2019-01-07] MEDS: TUMS PO SCH ×2 (08:06→21:34)
[2019-01-07] MEDS: TOPAMAX PO SCH ×2 (08:06→21:34)
[2019-01-07] MEDS: LOPRESSOR PO SCH ×2 (08:06→21:34)
[2019-01-07] MEDS: NEURONTIN PO SCH ×3 (08:06→22:25)
[2019-01-07] MEDS: IMDUR PO SCH (08:06)
[2019-01-07] MEDS: ICAR-C PO SCH (08:06)
[2019-01-07] MEDS: ASPIRIN PO SCH (08:06)
[2019-01-07] MEDS: LASIX PO SCH (08:06)
[2019-01-07] MEDS: TESSALON PO SCH ×3 (08:06→18:12)
[2019-01-07] MEDS: VITAMIN D PO SCH ×2 (08:06→21:34)
[2019-01-07] MEDS: PRILOSEC PO SCH (08:06)
[2019-01-07] MEDS: ZYLOPRIM PO SCH (08:06)
--- NOTE | 2019-01-07 10:52 | EKG Report ---
Test Performed on : 01/02/2019 00:06:06 AM Test Reason : rhythm change Blood Pressure : / mmHG Vent. Rate : 090 BPM Atrial Rate : 090 BPM P-R Int : 142 ms QRS Dur : 146 ms QT Int : 428 ms P-R-T Axes : 060 068 052 degrees QTc Int : 523 ms Sinus rhythm. with frequent premature ventricular complexes. Right bundle branch block Abnormal ECG When compared with ECG of 29-DEC-2018 13:15, (Unconfirmed) Previous ECG has undetermined rhythm, needs review Confirmed by Freedom ALCANTARA, Salvatore Tucker ([id number]) on 01/07/2019 6:33:56 PM
--- NOTE | 2019-01-07 11:08 | Diag Imaging Result Doc PS360 ---
EXAM: CHEST-PORTABLE 01/07/2019 HISTORY: dyspnea. Rule out pneumonia TECHNIQUE: AP portable semiupright at 1057 COMMENT: There is cardiomegaly. The inspiration is slightly less optimal than on 12/29/2018. Otherwise are has been no significant change in the appearance of the chest. There may be atelectasis or pneumonia in the lung bases particularly in the medial right lower lobe. IMPRESSION: Atelectasis versus pneumonia. Cardiomegaly. Electronically signed by Dick Neumann 01/07/2019 11:05 AM
--- NOTE | 2019-01-07 11:15 | PROGRESS NOTE ---
DATE: 01/07/2019 INTERVAL HISTORY: I was informed that the patient was having shortness of breath, and I was asked to evaluate the patient at bedside. On my evaluation, patient does appear short of breath and she is wheezing. She denies any chest pain. She states that she is feeling short of breath. She is denying any undue cough. She is denying any abdominal pain. VITAL SIGNS: Temperature 98 degrees, pulse 81, respiratory rate 18, and blood pressure 112/49. She is saturating 100% on 4 L nasal cannula. PHYSICAL EXAMINATION: Oral cavity is moist, and decreased air entry with prolonged expiratory phase and bilateral wheezes. No rhonchi. Mild infrascapular crackles. S1, S2 normal. Severe crescendo decrescendo murmur affecting base of the heart, likely aortic stenosis. No rub or gallop.Abdomen: Obese. Soft. Nontender. She has a right below-knee amputation and left lower extremity mild edema. Neurologic: She is alert and oriented x3. LABORATORY: She does not have any CBC or BMP today, which I will order for tomorrow. I discussed with the patient about giving her additional Lasix based on her response. I also discussed with her about COPD exacerbation, and I answered all of her questions. ASSESSMENT AND PLAN: 1. Acute chronic obstructive pulmonary disease exacerbation with acute on chronic hypoxic respiratory failure. Start patient on BiPAP. Continue albuterol ipratropium nebulization, and make it scheduled. I will start her intravenous steroids. She did receive p.o. Lasix. I will continue her. I will stop intravenous fluids and consider giving her additional IV Lasix based on chest x-ray report. 2. E. Coli urinary tract infection, which is pansensitive. The patient has had multiple drug allergies, and she is on aztreonam. Day 1 of antibiotics seems like it was 12/30. Today is day 9 of antibiotic, and plan is to give 2 additional days of antibiotics. 3. History of fibromyalgia. I will continue her home medications of gabapentin, [place], topiramate and quetiapine. 4. Others: Continue Symbicort for history of COPD, iron carbonyl and ascorbic acid for history of chronic anemia, isosorbide mononitrate and aspirin with Lasix for history of coronary artery disease requiring CABG in 1998. 5. Disposition: The patient remains inside the hospital. I will continue physical therapy and will anticipate discharge to rehab in future. Plan of care discussed with her. All of her questions have been answered. cc: Shakeel Milan MD
[2019-01-07] MEDS: SOLU-MEDROL IV SCH (12:30)
[2019-01-07] MEDS: LOVENOX SUBQ SCH (21:33)
[2019-01-07] MEDS: SEROQUEL PO SCH (21:34)
[2019-01-08] MEDS: DUONEB (A & A) INH SCH ×6 (03:00→23:19)
[2019-01-08] MEDS: AZACTAM 1 GM in NS 50 ML IV SCH ×2 (03:58→12:15)
[2019-01-08 07:37] LABS: BASO# 0.01 X1000 (0.0-0.2); BASO% 0.2 % (0.0-0.8); EOS# 0.55 X1000 (0.0-0.7); EOS% 9.9 % (0.0-10.0); HEMATOCRIT 26.9 % (37.0-47.0); HEMOGLOBIN 7.9 g/dL (12.0-16.0); LYMPH% 26.9 % (20.5-51.1); MCH 27.3 PG (27-31); MCHC 29.4 g/dL (33-37); MCV 93.1 FL (81-99); MONO# 0.35 X1000 (0.11-0.59); MONO% 6.3 % (1.7-9.3); MPV 10.7 FL (7.4-10.4); NEUT# 3.17 X1000 (1.4-6.5); NEUT% 56.7 % (42.2-75.2); PLT 310 X1000 (130-400); RBC 2.89 XMIL (4.2-5.4); WBC 5.58 X1000 (4.8-10.8)
[2019-01-08] MEDS: SYMBICORT 160/4.5 MICROGM INHALER INH SCH ×2 (07:41→20:37)
[2019-01-08 07:47] LABS: AGAP 6; BUN 20 mg/dL (8-22); CALCIUM 8.7 mg/dL (8.8-10.2); CHLORIDE 103 mmol/L (98-107); COSMO 285; CREATININE 0.5 mg/dL (0.5-0.9); ESTIMATED GFR > 60; GLUCOSE 92 mg/dL (70-104); MAGNESIUM 1.9 mg/dL (1.5-2.7); POTASSIUM 3.3 mmol/L (3.5-5.1); SODIUM 142 mmol/L (136-145); TCO2 33 mmol/L (25-35)
[2019-01-08] MEDS: LASIX PO SCH (10:09)
[2019-01-08] MEDS: LOPRESSOR PO SCH ×2 (10:09→22:40)
[2019-01-08] MEDS: ZYLOPRIM PO SCH (10:09)
[2019-01-08] MEDS: IMDUR PO SCH (10:09)
[2019-01-08] MEDS: VITAMIN D PO SCH ×2 (10:09→22:40)
[2019-01-08] MEDS: ICAR-C PO SCH (10:09)
[2019-01-08] MEDS: TUMS PO SCH ×2 (10:09→22:39)
[2019-01-08] MEDS: ASPIRIN PO SCH (10:09)
[2019-01-08] MEDS: TOPAMAX PO SCH ×2 (10:09→22:40)
[2019-01-08] MEDS: TESSALON PO SCH ×3 (10:09→22:40)
[2019-01-08] MEDS: NEURONTIN PO SCH ×3 (10:09→22:40)
[2019-01-08] MEDS: SOLU-MEDROL IV SCH (10:10)
[2019-01-08] MEDS: PRILOSEC PO SCH (10:12)
--- NOTE | 2019-01-08 21:24 | PROGRESS NOTE ---
DATE: 01/08/2019 INTERVAL HISTORY: No acute events. Patient was tolerating BiPAP well. She states she is feeling much better today than she did yesterday. We discussed about clinical exam findings. We also discussed that she needs medication for constipation, and we are awaiting senior care availability in [place]. SUBJECTIVE: Patient denies any new complaints. No chest pain. She states her shortness of breath is better today than it has been. OBJECTIVE: Vital Signs: Temperature 98.7 degrees, pulse 76, respiratory rate 18, blood pressure 120/64. She is saturating 99% on 3 L nasal cannula. General: Does not appear in acute distress. HEENT: Oral cavity is moist. Lungs: Air entry bilaterally equal with prolonged expiratory phase and bilateral wheezes, which is improved but still present. She has mild infrascapular crackles. Cardiovascular: S1, S2 normal. Crescendo decrescendo murmur affecting base of the heart, likely aortic stenosis. No rub or gallop. Abdomen: Obese, soft, nontender. Extremities: She has a right-sided below-knee amputation. Left lower extremity with mild edema. Neurologic: She is alert and oriented x3. LABORATORY DATA: Suggestive of normocytic anemia, normal platelet count, hypokalemia, which is being repleted. Normal kidney function. Magnesium is 1.9. Microbiology: No new data. IMAGING: Chest x-ray performed yesterday had suggested atelectasis versus pneumonia and cardiomegaly. I was reviewing previous EKG. She did have elevated prolonged QTc of 523, and I am decreasing her Seroquel dose because of that. ASSESSMENT AND PLAN: 1. Acute chronic obstructive pulmonary disease exacerbation with acute on chronic hypoxic respiratory failure. Continue to cycle BiPAP and nasal cannula as tolerated. Continue albuterol ipratropium nebulization, intravenous steroids and p.o. Lasix. She is improving. 2. Escherichia coli urinary tract infection status post 10 days of intravenous aztreonam. I stopped her antibiotics today. 3. History of fibromyalgia. Continue home gabapentin, [place], topiramate, and I will decrease the dose of quetiapine considering her prolonged QTc. 4. Continue Symbicort for history of chronic obstructive pulmonary disease, iron carbonyl and ascorbic acid for history of chronic anemia, isosorbide mononitrate and aspirin with Lasix for history of coronary artery bypass graft in 1998. DISPOSITION: We are awaiting senior care availability in [place]. Based on that, the plan is to discharge her sometime next week I presume. Plan of care discussed with her. All of her questions have been satisfactorily answered. I will start her on MiraLAX and bisacodyl for constipation. cc: Shakeel Milan MD
[2019-01-08] MEDS: LOVENOX SUBQ SCH (22:40)
[2019-01-08] MEDS: SEROQUEL PO SCH (22:40)
[2019-01-08] MEDS: DULCOLAX PR SCH (22:40)
[2019-01-08] MEDS: MIRALAX PO SCH (22:45)
[2019-01-08] MEDS: KLOR-CON PO SCH (22:45)
[2019-01-09] MEDS: DUONEB (A & A) INH SCH ×6 (03:48→23:07)
[2019-01-09] MEDS: SYMBICORT 160/4.5 MICROGM INHALER INH SCH ×2 (08:08→19:27)
[2019-01-09] MEDS: MIRALAX PO SCH ×2 (10:08→20:37)
[2019-01-09] MEDS: TOPAMAX PO SCH ×2 (10:11→20:38)
[2019-01-09] MEDS: VITAMIN D PO SCH ×2 (10:11→20:38)
[2019-01-09] MEDS: IMDUR PO SCH (10:12)
[2019-01-09] MEDS: ASPIRIN PO SCH (10:12)
[2019-01-09] MEDS: LOPRESSOR PO SCH ×2 (10:12→20:38)
[2019-01-09] MEDS: TUMS PO SCH ×2 (10:12→20:38)
[2019-01-09] MEDS: ZYLOPRIM PO SCH (10:12)
[2019-01-09] MEDS: TESSALON PO SCH ×3 (10:13→18:18)
[2019-01-09] MEDS: NEURONTIN PO SCH ×3 (10:13→20:38)
[2019-01-09] MEDS: PRILOSEC PO SCH (10:13)
[2019-01-09] MEDS: ICAR-C PO SCH (10:13)
[2019-01-09] MEDS: LASIX PO SCH (10:13)
[2019-01-09] MEDS: SOLU-MEDROL IV SCH (10:13)
--- NOTE | 2019-01-09 17:26 | PROGRESS NOTE ---
DATE: 01/09/2019 INTERVAL HISTORY: No acute events. SUBJECTIVE: Ms. Orta is denying any new complaints. Her shortness of breath is better. She states she would rather go to [facility] than be in [place] because she has all her family members over there. VITAL SIGNS: Temperature 97.9 degrees, pulse 90, respiratory rate 18, blood pressure 127/67 and saturating 97% 2 L nasal cannula. PHYSICAL EXAMINATION: General: Does not appear in any acute distress. HEENT: Oral cavity is moist. Mild conjunctival pallor. No cyanosis, clubbing, or icterus. Lungs: Air entry bilaterally equal with prolonged expiratory phase and bilateral wheezes, which is improved. She has mild bilateral infrascapular crackles. Cardiovascular: S1, S2 normal. Crescendo decrescendo murmur affecting base of the heart, likely severe aortic stenosis. No rub or gallop. Abdomen: Obese. Soft. Nontender. Extremities: She has a right-sided below-knee amputation. The stump of which appears to have well healed. Left lower extremity mild edema. Neurologic: She is alert and oriented x3. Input and output is not charted appropriately. LABORATORY: No new labs today. MICROBIOLOGY: No new data. IMAGING: No new imaging. ASSESSMENT AND PLAN: 1. Acute chronic obstructive pulmonary disease exacerbation with acute on chronic hypoxic respiratory failure. Continue to cycle BiPAP and nasal cannula as tolerated. Continue albuterol ipratropium nebulization, intravenous steroids, and p.o. Lasix. Her shortness of breath is gradually improving. 2. E. Coli acute cystitis and sepsis status post 10 days of intravenous aztreonam which have been stopped on 01/08/2019. 3. History of fibromyalgia. Continue home gabapentin, [place], topiramate and lower dose of quetiapine considering her prolonged QTc. I will continue Symbicort for history of COPD, iron carbonyl and ascorbic acid for history of chronic anemia, isosorbide mononitrate, aspirin, and Lasix for history of coronary artery disease with bypass graft in 1998. 4. Disposition: We are awaiting senior care availability in [place]. Based on that, I plan on resuming to discharge her next week. I called the patient's daughter and other relationship as listed in the chart, and there was no voice message option on daughter's phone number, and other relationship on Ms. I left a voice message. cc: Shakeel Milan MD MTDD
[2019-01-09] MEDS: KLOR-CON PO SCH (18:19)
[2019-01-09] MEDS: DULCOLAX PR SCH (20:37)
[2019-01-09] MEDS: SEROQUEL PO SCH (20:38)
[2019-01-09] MEDS: NORCO-5 PO PRN (20:38)
[2019-01-09] MEDS: CALMOSEPTINE OINTMENT TOP PRN (20:39)
[2019-01-09] MEDS: LOVENOX SUBQ SCH (20:39)
[2019-01-10] MEDS: DUONEB (A & A) INH SCH ×6 (03:03→23:21)
[2019-01-10] MEDS: SYMBICORT 160/4.5 MICROGM INHALER INH SCH ×2 (07:39→19:26)
[2019-01-10 07:46] LABS: BASO# 0.02 X1000 (0.0-0.2); BASO% 0.3 % (0.0-0.8); EOS# 0.09 X1000 (0.0-0.7); EOS% 1.2 % (0.0-10.0); HEMATOCRIT 28.1 % (37.0-47.0); HEMOGLOBIN 8.1 g/dL (12.0-16.0); IMM GRAN# 0.05 X1000 (0.0-0.04); IMM GRAN% 0.7 % (0.0-0.5); LYMPH# 2.19 X1000 (1.2-3.4); LYMPH% 28.5 % (20.5-51.1); MCH 27.1 PG (27-31); MCHC 28.8 g/dL (33-37); MONO# 0.52 X1000 (0.11-0.59); MONO% 6.8 % (1.7-9.3); MPV 10.9 FL (7.4-10.4); NEUT# 4.82 X1000 (1.4-6.5); NEUT% 62.5 % (42.2-75.2); PLT 345 X1000 (130-400); RBC 2.99 XMIL (4.2-5.4); RDW 18.6 % (11.5-14.5); WBC 7.69 X1000 (4.8-10.8)
[2019-01-10 08:06] LABS: AGAP 8; BUN 26 mg/dL (8-22); CALCIUM 8.8 mg/dL (8.8-10.2); CHLORIDE 103 mmol/L (98-107); COSMO 289; CREATININE 0.6 mg/dL (0.5-0.9); ESTIMATED GFR > 60; GLUCOSE 90 mg/dL (70-104); MAGNESIUM 2.1 mg/dL (1.5-2.7); SODIUM 143 mmol/L (136-145); TCO2 32 mmol/L (25-35)
[2019-01-10] MEDS: VITAMIN D PO SCH ×2 (10:19→21:30)
[2019-01-10] MEDS: NORCO-5 PO PRN (10:19)
[2019-01-10] MEDS: TESSALON PO SCH ×3 (10:19→18:41)
[2019-01-10] MEDS: PRILOSEC PO SCH (10:19)
[2019-01-10] MEDS: NEURONTIN PO SCH ×3 (10:20→21:30)
[2019-01-10] MEDS: LASIX PO SCH (10:20)
[2019-01-10] MEDS: IMDUR PO SCH (10:20)
[2019-01-10] MEDS: ICAR-C PO SCH (10:20)
[2019-01-10] MEDS: LOPRESSOR PO SCH ×2 (10:20→21:29)
[2019-01-10] MEDS: TUMS PO SCH ×2 (10:20→21:30)
[2019-01-10] MEDS: ZYLOPRIM PO SCH (10:20)
[2019-01-10] MEDS: TOPAMAX PO SCH ×2 (10:20→21:30)
[2019-01-10] MEDS: ASPIRIN PO SCH (10:20)
[2019-01-10] MEDS: MIRALAX PO SCH ×2 (10:21→21:30)
[2019-01-10] MEDS: SOLU-MEDROL IV SCH (10:22)
--- NOTE | 2019-01-10 18:49 | PROGRESS NOTE ---
DATE: 01/10/2019 INTERVAL HISTORY: No acute events overnight. SUBJECTIVE: Patient is feeling fine. Denies any new complaints. We discussed about exam findings, finding custodial in [place], answered all of her questions. VITALS: Temperature 98.7 degrees, pulse 75, respiratory rate 20, blood pressure 128/82, saturating 99% on 3 L nasal cannula. PHYSICAL EXAMINATION: General: She does not appear in any acute distress. Oral cavity is moist. Air entry bilaterally equal. Her wheezes have significantly decreased and there are only occasional wheezes. Mild bilateral infrascapular crackles. S1, S2 normal. Crescendo decrescendo murmur affecting base of the heart likely severe aortic stenosis. No rub or gallop. Abdomen is obese, soft, nontender. She has right-sided below-knee amputation which has well-healed stump, left lower extremity edema. She is alert and oriented x3. LAB DATA: Suggestive of normocytic anemia, normal platelet count, resolution of hypokalemia, normal magnesium. No new microbiological data. No new imaging. ASSESSMENT AND PLAN: 1. Acute chronic obstructive pulmonary disease exacerbation with acute on chronic hypoxic respiratory failure. Continue to cycle BiPAP and nasal cannula as tolerated. Continue albuterol ipratropium nebulization, intravenous steroids and p.o. Lasix. Her exacerbation is significantly improved . 2. Escherichia coli sepsis and acute cystitis status post 10 days of aztreonam completed on January 08. 3. Continue patient on home budesonide, formoterol inhaler for COPD. 4. History of fibromyalgia. Continue home gabapentin, [place], topiramate and quetiapine, continue iron carbonyl ascorbic acid for history of chronic anemia, isosorbide mononitrate, aspirin and Lasix for history of coronary artery disease with bypass in 1998. 5. Disposition, awaiting custodial availability in [place]. Patient is medically ready to be discharged. I called patient's daughter and other relationship as listed in the chart and there was no voice message option on daughter's phone number and other relationship I have left a voice message on January 09. Plan of care discussed with the patient. All of her questions have been answered. cc: Shakeel Milan MD
[2019-01-10] MEDS: LOVENOX SUBQ SCH (21:30)
[2019-01-10] MEDS: DULCOLAX PR SCH (21:30)
[2019-01-10] MEDS: SEROQUEL PO SCH (21:30)
[2019-01-11] MEDS: DUONEB (A & A) INH SCH ×6 (03:43→22:34)
[2019-01-11] MEDS: SYMBICORT 160/4.5 MICROGM INHALER INH SCH ×2 (07:30→19:36)
[2019-01-11] MEDS: ICAR-C PO SCH (08:41)
[2019-01-11] MEDS: ASPIRIN PO SCH (08:41)
[2019-01-11] MEDS: MIRALAX PO SCH ×2 (08:41→21:11)
[2019-01-11] MEDS: TESSALON PO SCH ×3 (08:41→16:50)
[2019-01-11] MEDS: LOPRESSOR PO SCH ×2 (08:41→21:12)
[2019-01-11] MEDS: ZYLOPRIM PO SCH (08:41)
[2019-01-11] MEDS: NEURONTIN PO SCH ×3 (08:41→21:12)
[2019-01-11] MEDS: TUMS PO SCH ×2 (08:41→21:12)
[2019-01-11] MEDS: IMDUR PO SCH (08:42)
[2019-01-11] MEDS: LASIX PO SCH (08:42)
[2019-01-11] MEDS: PRILOSEC PO SCH (08:42)
[2019-01-11] MEDS: VITAMIN D PO SCH ×2 (08:42→21:12)
[2019-01-11] MEDS: TOPAMAX PO SCH ×2 (08:42→21:12)
[2019-01-11] MEDS: SOLU-MEDROL IV SCH (08:42)
--- NOTE | 2019-01-11 14:55 | PROGRESS NOTE ---
DATE: 01/11/2019 INTERVAL HISTORY: No acute overnight events. The patient denies any new complaints. Denies any chest pain or shortness of breath. She has been playing [employer] and word puzzles. VITAL SIGNS: Temperature 98.3 degrees, pulse 76, respiratory rate 19, blood pressure 120/70, saturating 98% on 3 L nasal cannula. PHYSICAL EXAMINATION: General: Does not appear in any acute distress. Oral cavity is moist. Air entry bilaterally equal. No wheeze, rhonchi, or crackles. Mild bilateral inframammary crackles. S1, S2 normal. Crescendo-decrescendo murmur affecting second intercostal space suggestive of severe aortic stenosis. No rub or gallop. Abdomen: Obese, soft, nontender. She has a right-sided below-knee amputation with well-healed stump. Left lower extremity edema. She is alert and oriented x3. LABS: Suggestive of normocytic anemia, normal platelet count, and normal electrolytes yesterday. ASSESSMENT AND PLAN: 1. Acute chronic obstructive pulmonary disease exacerbation with acute on chronic hypoxic respiratory failure. Continue oxygenation through nasal cannula. Continue albuterol- ipratropium nebulization. She is status post intravenous steroids now. I will continue her on oral Lasix, Symbicort inhaler, and benzonatate for cough which has significantly improved. 2. Escherichia coli sepsis and acute cystitis, status post 10 days of intravenous aztreonam, completed on January 08. 3. History of fibromyalgia. Continue home gabapentin, [place], topiramate, quetiapine; continue iron carbonyl with ascorbic acid for history of chronic anemia; aspirin, isosorbide mononitrate for history of coronary artery disease with severe aortic stenosis and coronary artery bypass graft in 1998. 4. Disposition. We are currently awaiting bed availability in [place] where the patient's granddaughter and great-granddaughter live, and patient wants to go to a longterm facility over there. I had discussed this with aids social worker team and they are working on finding a place. Plan of care discussed with the patient. All of her questions have been answered. cc: Shakeel Milan MD MTDD
[2019-01-11] MEDS: SEROQUEL PO SCH (21:12)
[2019-01-11] MEDS: DULCOLAX PR SCH (21:12)
[2019-01-11] MEDS: LOVENOX SUBQ SCH (21:12)
[2019-01-12] MEDS: DUONEB (A & A) INH SCH ×6 (03:55→23:06)
[2019-01-12] MEDS: SYMBICORT 160/4.5 MICROGM INHALER INH SCH ×2 (07:47→19:00)
[2019-01-12 07:58] LABS: BASO# 0.03 X1000 (0.0-0.2); BASO% 0.4 % (0.0-0.8); EOS% 1.2 % (0.0-10.0); HEMATOCRIT 31.2 % (37.0-47.0); HEMOGLOBIN 9.2 g/dL (12.0-16.0); IMM GRAN# 0.08 X1000 (0.0-0.04); IMM GRAN% 0.9 % (0.0-0.5); LYMPH# 2.47 X1000 (1.2-3.4); LYMPH% 28.9 % (20.5-51.1); MCH 27.9 PG (27-31); MCHC 29.5 g/dL (33-37); MCV 94.5 FL (81-99); NEUT# 5.27 X1000 (1.4-6.5); NEUT% 61.6 % (42.2-75.2); PLT 366 X1000 (130-400); RDW 18.4 % (11.5-14.5); WBC 8.55 X1000 (4.8-10.8)
[2019-01-12 08:21] LABS: AGAP 8; BUN 31 mg/dL (8-22); CHLORIDE 99 mmol/L (98-107); COSMO 289; CREATININE 0.7 mg/dL (0.5-0.9); ESTIMATED GFR > 60; GLUCOSE 82 mg/dL (70-104); MAGNESIUM 2.1 mg/dL (1.5-2.7); POTASSIUM 3.5 mmol/L (3.5-5.1); SODIUM 142 mmol/L (136-145); TCO2 35 mmol/L (25-35)
[2019-01-12] MEDS: VITAMIN D PO SCH ×2 (08:47→21:40)
[2019-01-12] MEDS: ZYLOPRIM PO SCH (08:47)
[2019-01-12] MEDS: NEURONTIN PO SCH ×3 (08:47→21:30)
[2019-01-12] MEDS: TOPAMAX PO SCH ×2 (08:47→21:40)
[2019-01-12] MEDS: TESSALON PO SCH ×3 (08:47→16:48)
[2019-01-12] MEDS: ICAR-C PO SCH (08:48)
[2019-01-12] MEDS: ASPIRIN PO SCH (08:48)
[2019-01-12] MEDS: LOPRESSOR PO SCH ×2 (08:48→21:40)
[2019-01-12] MEDS: PRILOSEC PO SCH (08:48)
[2019-01-12] MEDS: LASIX PO SCH (08:48)
[2019-01-12] MEDS: TUMS PO SCH ×2 (08:48→21:40)
[2019-01-12] MEDS: IMDUR PO SCH (08:48)
[2019-01-12] MEDS: MIRALAX PO SCH (08:49)
[2019-01-12] MEDS ORDERED: KLOR-CON PO SCH (14:45)
[2019-01-12] MEDS: NORCO-5 PO PRN ×2 (16:53→23:00)
--- NOTE | 2019-01-12 17:01 | PROGRESS NOTE ---
DATE: 01/12/2019 INTERVAL HISTORY: No acute events overnight. SUBJECTIVE: Patient denies any new complaints. VITALS: Currently, temperature of 98 degrees, pulse 71, respiratory rate 20, blood pressure 120/68, saturating 100% on 3 L nasal cannula. PHYSICAL EXAMINATION: General: Morbidly obese. She remains in the bed all the time. Oral cavity is moist. No pallor, cyanosis, clubbing, icterus. Air entry bilaterally equal. No wheeze, rhonchi. Mild bilateral inframammary crackles. S1, S2 normal. Crescendo/decrescendo murmur affecting second intercostal space on the right, suggestive of severe aortic stenosis. No rub or gallop. Abdomen is obese, soft, nontender. She has a right-sided below-knee amputation with well-healed stump. Left lower extremity edema is minimal. She is alert, oriented x3. LABORATORIES: Suggestive of normocytic anemia, normal platelet count, low potassium which is being repleted, normal magnesium. ASSESSMENT AND PLAN: 1. Acute chronic obstructive pulmonary disease exacerbation with acute on chronic hypoxic respiratory failure, now resolved. Continue oxygenation through nasal cannula. Continue albuterol/ipratropium nebulization. She is status post intravenous steroids. I will continue her home Lasix, Symbicort, benzonatate. 2. Escherichia coli sepsis and acute cystitis status post 10 days of intravenous aztreonam, completed on January 08. 3. History of fibromyalgia. Continue home gabapentin, [place], topiramate, quetiapine; continue iron carbonyl with ascorbic acid for history of chronic anemia; continue aspirin, isosorbide mononitrate for history of coronary artery disease and severe aortic stenosis with CABG in 1998. DISPOSITION: We are currently awaiting bed availability in [place]. I had discussion with social security assessor team today, and it looks like the patient would have a bed available either today or tomorrow. Based on that, she will be discharge. Plan of care discussed with the patient. Her questions have been answered. cc: Shakeel Milan MD
[2019-01-12] MEDS: LOVENOX SUBQ SCH (21:40)
[2019-01-12] MEDS: SEROQUEL PO SCH (21:40)
[2019-01-12] MEDS: DULCOLAX PR SCH (21:41)
[2019-01-13] MEDS: DUONEB (A & A) INH SCH ×5 (03:31→23:04)
[2019-01-13] MEDS: MIRALAX PO SCH ×4 (05:57→21:25)
[2019-01-13] MEDS: SYMBICORT 160/4.5 MICROGM INHALER INH SCH ×2 (07:39→19:45)
[2019-01-13] MEDS: TUMS PO SCH ×3 (09:36→21:26)
[2019-01-13] MEDS: VITAMIN D PO SCH ×3 (09:36→21:26)
[2019-01-13] MEDS: IMDUR PO SCH (09:36)
[2019-01-13] MEDS: TESSALON PO SCH ×3 (09:36→18:30)
[2019-01-13] MEDS: ASPIRIN PO SCH (09:37)
[2019-01-13] MEDS: LASIX PO SCH (09:37)
[2019-01-13] MEDS: ZYLOPRIM PO SCH (09:37)
[2019-01-13] MEDS: PRILOSEC PO SCH (09:37)
[2019-01-13] MEDS: TOPAMAX PO SCH ×3 (09:37→21:25)
[2019-01-13] MEDS: NEURONTIN PO SCH ×4 (09:37→21:25)
[2019-01-13] MEDS: ICAR-C PO SCH (09:37)
[2019-01-13] MEDS: LOPRESSOR PO SCH ×3 (09:37→21:25)
[2019-01-13] MEDS ORDERED: LANTISEPTIC TOP ONE (10:41)
[2019-01-13] MEDS ORDERED: LANTISEPTIC TOP PRN (10:41)
--- NOTE | 2019-01-13 14:54 | Diag Imaging Result Doc PS360 ---
EXAM: CHEST-PORTABLE 01/13/2019 HISTORY: Evaluate for consolidation. TECHNIQUE: AP portable upright at 1437 COMMENT: There is cardiomegaly. The inspiration is suboptimal. Considering differences in inspiration and technique there has been no significant change since 01/07/2019. IMPRESSION: Stable chest. Electronically signed by Dick Neumann 01/13/2019 2:52 PM
[2019-01-13] MEDS ORDERED: TUBERSOL ID ONE (15:18)
[2019-01-13] MEDS: SEROQUEL PO SCH ×2 (19:51→21:25)
--- NOTE | 2019-01-13 19:51 | PROGRESS NOTE ---
DATE: 01/13/2019 HOSPITAL COURSE SUMMARY: Ms. Orta was admitted with chief complaints of recurrent falls and urinary tract infection, and a fall from her wheelchair initially, and she was treated with intravenous antibiotics. While inside the hospital she had also developed acute chronic obstructive pulmonary disease exacerbation and she was treated with nebulizer and steroids. The patient's family lives in [place] and the patient wanted to go to a facility in [place], and that is why she has been in the hospital for such a long time. Eventually we have been able to find a facility and the patient should be able to be discharged tomorrow. She got tuberculin skin test on her right arm today, and the facility in [place] is going to follow up with the results. OVERNIGHT EVENTS: The patient's pubic urine catheter was put to high suction following which the patient had some local trauma and her urine had started turning pinkish. In the morning time I have discontinued the pubic catheter and patient can use a bedside commode. SUBJECTIVE: She is happy she is going to get discharged tomorrow. Denies any complaints. OBJECTIVE: Vital Signs: Temperature of 98.2 degrees, pulse 69, respiratory rate 14, blood pressure 110/60, O2 saturation is 100% on 4 L nasal cannula. HEENT: Oral cavity is moist. No pallor, cyanosis, clubbing or icterus. Lungs: Air entry bilaterally equal. No wheeze, rhonchi or crackles, except mild bilateral inframammary crackles. Cardiovascular: S1, S2 normal. Crescendo decrescendo murmur affecting second intercostal space on the right, suggestive of severe aortic stenosis. No rub or gallop. Abdomen: Obese, soft, nontender. Extremities: She has right-sided below-knee amputation with well-healed stump. Mild left lower extremity edema. Neurologic: She is alert and oriented x3. LABORATORY DATA: She does not have any new laboratories today. ASSESSMENT AND PLAN: 1. Acute chronic obstructive pulmonary disease exacerbation with acute on chronic hypoxic respiratory failure, now resolved. Continue oxygenation for chronic hypoxic respiratory failure through nasal cannula, albuterol ipratropium nebulization, and she is status post intravenous steroids. I will continue her home Lasix, Symbicort, and benzonatate. 2. Escherichia coli sepsis and acute cystitis status post 10 days of intravenous estrogen completed on 01/08/2019. 3. History of fibromyalgia. Continue home gabapentin, [place], topiramate, quetiapine; continue iron carbonyl ascorbic acid for history of chronic anemia; continue aspirin as isosorbide mononitrate for history of coronary artery disease requiring coronary artery bypass graft in 1998 and severe aortic stenosis for which medical management has been recommended as per the report given to me by the patient. 4. Disposition. I got the chest x-ray as requested by the facility today to rule out pneumonia, and the patient was also given tuberculin skin test on the right upper extremity. I have asked the nurse to patel the place of the skin test so that a result could be followed up in [place] since the patient has multiple bruises, and the nurse is going to do that. The plan is that the facility in [place] would follow up tuberculin skin test regardless. The plan is for the patient to be discharged to [place] tomorrow as per my discussion with the social work. The patient is also in agreement. cc: Shakeel Milan MD
[2019-01-13] MEDS: NORCO-5 PO PRN (19:52)
[2019-01-13] MEDS: LOVENOX SUBQ SCH ×2 (19:52→21:25)
[2019-01-13] MEDS: DULCOLAX PR SCH (21:25)
[2019-01-14] MEDS: DUONEB (A & A) INH SCH ×5 (03:35→15:04)
[2019-01-14] MEDS: SYMBICORT 160/4.5 MICROGM INHALER INH SCH (07:26)
[2019-01-14 07:30] VITALS: BP 114/72
[2019-01-14] MEDS: VITAMIN D PO SCH (09:20)
[2019-01-14] MEDS: LOPRESSOR PO SCH (09:20)
[2019-01-14] MEDS: TUMS PO SCH (09:20)
[2019-01-14] MEDS: ASPIRIN PO SCH (09:20)
[2019-01-14] MEDS: IMDUR PO SCH (09:20)
[2019-01-14] MEDS: ICAR-C PO SCH (09:20)
[2019-01-14] MEDS: LASIX PO SCH (09:20)
[2019-01-14] MEDS: NORCO-5 PO PRN (09:20)
[2019-01-14] MEDS: PRILOSEC PO SCH (09:20)
[2019-01-14] MEDS: TESSALON PO SCH ×2 (09:20→13:33)
[2019-01-14] MEDS: ZYLOPRIM PO SCH (09:20)
[2019-01-14] MEDS: MIRALAX PO SCH (09:21)
[2019-01-14] MEDS: NEURONTIN PO SCH (09:21)
[2019-01-14] MEDS: TOPAMAX PO SCH (09:21)
--- NOTE | 2019-01-14 13:36 | DISCHARGE SUMMARY ---
ADMISSION DATE: 12/29/2018 DISCHARGE DATE: 01/14/2019 LENGTH OF STAY: Sixteen days. ADMISSION DIAGNOSES: 1. Urinary tract infection. 2. Chronic obstructive pulmonary disease. 3. Recurrent falls. 4. History of fibromyalgia. 5. Anemia of chronic disease. 6. Gastroesophageal reflux disease. 7. History of hypertension. DISCHARGE DIAGNOSES: 1. Acute on chronic obstructive pulmonary disease exacerbation with acute on chronic hypoxemic respiratory failure, all now resolved. 2. Escherichia coli sepsis and acute cystitis, status post 10 days of intravenous aztreonam completed on 01/08/2019. 3. History of fibromyalgia. CONSULTATIONS: None. SURGERIES AND PROCEDURES: None. HOSPITAL COURSE: On 12/29/2018 Ms. Loren Orta, a 78-year-old female, with a medical history of COPD, morbid obesity, hypothyroidism, and hypertension presented to the Emergency Department with complaints of bilateral shoulder pain, neck pain, and back pain after she had a fall from her wheelchair. She was evaluated in the E.R. and found to have an elevated white blood cell count on her urinalysis which eventually grew out to be E. coli that was resistant to Levaquin and trimethoprim sulfa. Blood cultures were negative. Imaging to rule out any injuries showed a questionable minimal new compression deformity on the left at L2 and L3 but otherwise no real significant injury. For the urinary tract infection that was found on her urinalysis she was started on Azactam which the E. coli that grew out was sensitive to. She got 1 g IV every 8 hours for a total of 10 days which completed on 01/07/2019. She did not seem to be in COPD exacerbation on admission but during her stay it appears that she did have some exacerbation and she was on nebulizers for that, steroids, and oxygen supplementation. She got physical therapy for her recurrent falls and was recommended to go for rehabilitation prior to going home. So, she is going to go to [facility] in [place] upon discharge today. DISCHARGE VITAL SIGNS: Temperature 97.4, heart rate 70, respiratory rate 16, blood pressure 114/72, and O2 saturation 100% on room air. DISCHARGE LAB DATA: White blood cells 8,000, hemoglobin 9, hematocrit 31, and platelet count 366. Sodium 142, potassium 3.5, BUN 31, creatinine 0.7, calcium 9, and magnesium 2.1. PERTINENT IMAGING: On 12/29/2018 chest x-ray showed improved pulmonary edema and cardiomegaly. Lumbar spine: Questionable minimal new compression deformities to the L2 and L3 vertebrae but also could be due to the angulation of the films. Thoracic spine x-ray: No acute fracture. Head and cervical spine CAT scan: No evidence of acute intracranial disease. There is severe degenerative disk disease with multilevel spinal stenosis. On 01/07/2019 chest x-ray showed atelectasis versus pneumonia and cardiomegaly. Chest x-ray on 01/13/2019 showed a stable chest. EKG: She had 1 on 12/29/2018 and it said undetermined rhythm, rate was 106, and QTc was 488. Pulling up the image it was normal sinus rhythm. EKG repeated on 01/02/2019: Normal sinus rhythm with PVCs, rate 90, QTC 523. There was a right bundle branch block. DISCHARGE MEDICATIONS: 1. Allopurinol 100 mg p.o. daily. 2. Aspirin 81 mg p.o. daily. 3. Atrovent and albuterol Respimat inhaler one puff inhaled 4 times daily. 4. Omeprazole 40 mg p.o. daily. 5. Seroquel 400 mg p.o. nightly. 6. TUMS 500 mg p.o. twice daily. 7. Vitamin B Complex one p.o. daily. 8. Vitamin D3 1,000 units p.o. twice daily. 9. Bisacodyl suppository per rectum 10 mg nightly. 10.Lopressor (metoprolol) 25 mg p.o. twice daily. 11.Albuterol and Atrovent nebs every 6 hours p.r.n. 12.Neurontin 600 mg p.o. three times daily. 13.Imdur 30 mg p.o. daily. 14.Lasix 40 mg p.o. daily. 15.MiraLAX 17 g p.o. daily p.r.n. 16.[place] 5 mg one tab p.o. every 6 hours p.r.n. 17.Symbicort 160 18.Tessalon 100 mg p.o. t.i.d. 19.Topamax 25 mg p.o. t.i.d. 20.Magnesium Sulfate. 21. Vitamin B Complex with zinc and vitamin C once p.o. daily. DISCHARGE DIET: Healthy heart diet. DISCHARGE ACTIVITY: Apparently she has been in a motorized wheelchair. She also got physical therapy while she was here and needs rehabilitation. DISCHARGE FOLLOW UP: Dr. Crawford. DISCHARGE INSTRUCTIONS: If your condition changes contact your physician and/or return to the Emergency Department. Changes may include but are not limited to shortness of breath, increased fatigue, excessive bleeding, unexplained weight loss or gain, unimaginable pain, and signs or symptoms of infection. DISCHARGE DISPOSITION: [facility] in [place]. Dictated by SAMUEL Jones for Brown Vazquez MD cc: SAMUEL Jones MD MTDD
== END 2019-01-14 16:16 | DRG 871 ==
LOC: SUPCPDRO → ED 13:00 → EDIPHOLD 16:54 → SUATTDRO 16:54 → 3N 21:08
PROVIDERS: ATTEND Internal Medicine
CPT/HCPCS: 70450; 71010; 71045; 72072; 72100; 72125; 80048; 80053; 81001; 82550; 82553; 83605; 83735; 84132; 84484; 85025; 85610; 85730; 86580; 87040; 87077; 87088; 87186; 93005; 93010; 93306; 94640; 94660; 94760; 94761; 96365; 96366; 96367; 97110; 97162; 97530; 99285; A9270; J1650; J1956; J2920; J7030; S0073